=== PATIENT | female | born 1950 | race Caucasian/White ===

== ENCOUNTER 2022-01-15 19:15 | Inpatient (IN) | payer OTHER ==
--- OUTSIDE RECORDS SUMMARY | 2022-01-15 19:29 | XMS REPORT | Continuity of Care Document ---
:1950 Author Organization [facility] t Address [address] [place] [address] Care Team Providers Name Role Phone Pcp, Does Not Have A Primary Care Physician Doctor Unassigned, Name Attending Clinician Unavailable Criss GARZA L Attending Clinician Harpreet KAHN Attending Clinician Unavailable Emily RAJPUT Attending Clinician Unavailable Payers Payer Name Policy Type Policy Number Effective Date Expiration Date Emily hensley MEDICARE PART A [id number] 2016 \T\ B 00:00:00 Problems Condition Condition Condition Status Onset Resolution Last Treating Co mments Source Name Details Category Date Date Treatment Clinician Date Morbid Morbid Disease Active Univers obesity obesity 7 [place] mass index 00 Me dical of of Branch 40.0-49.9 40.0-49.9 Chest pain Chest pain Disease Active U nivers 06-25 ity of 00:00: [place] 00 [facility] Branch Morbid Morbid Disease Active Univers obesity obesity 7- [place] of with body [place] mass index mass index 00 Me dical of 50 or of 50 or Branch higher higher Cholangiti Cholangiti Disease Active U nivers s s 06-25 ity of 00:00: [place] 00 Medical Branch Obesity Obesity Disease Active Univers 9-27 ity of 00:00: [place] 00 [facility] Pleural Pleural Disease Active Univers effusion effusion 9- ity of 00:00: [place] [facility] Gait Gait Disease Active Univers abnormalit abnormalit 8-12 it y of y y 00:00: [place] 00 [facility] Branch Choledocho Choledocho Disease Active U nivers lithiasis lithiasis 8 ity of 00:00: [place] [facility] Dilation Dilation Disease Active Unive rs of biliary of biliary 8 it y of tract tract 00:00: [place] [facility] Abnormal Abnormal Disease Active Unive rs LFTs LFTs 8-08 ity of (liver (liver 00:00: [place] function function 00 Medica l tests) tests) Branch Hyperbilir Hyperbilir Disease Active U nivers ubinemia ubinemia 07-07 ity of 00:00: [place] [facility] Cholelithi Cholelithi Disease Active U nivers asis asis 8 ity of 00:00: [place] [facility] Hypertensi Hypertensi Disease Active U nivers on on 07-04 ity of 00:00: [place] 00 Medical Branch HLD HLD Disease Active 2008-11 Overview: Univer s (hyperlipi (hyperlipi 2-03 Formattin ity of demia) demia) 00:00: g of this [place] 00 note Medical might be Branch different from the original. 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 Retinopat hy cloudicat ion Allergies, Adverse Reactions, Alerts Allergy Allergy Status Severity Reaction(s) Onset Inactive Treating Comm ents Source Name Type Date Date Clinician No Known DA Active [facility] Allergie 7-20 [place] [facility] 00:[facility] NO KNOWN Drug Active Univers ALLERGIE Class ity of S [facility] Social History Social Habit Start Date Stop Date Quantity Comments Source Exposure to Not sure University of SARS-CoV-2 [place] Medical (event) Branch Alcohol intake 2021-05-09 2021-05-09 0 /d University of 00:00:00 00:00:00 [facility] History of 1997-11-30 Cigarette Smoker Universi ty of tobacco use 00:00:00 [facility] Sex [birth year] Universit y of 00:00:00 00:00:00 [facility] Smoking Status Start Date Stop Date Source Former smoker 2021-03-21 00:00:00 2021-03-21 00:00:00 Universi ty of [facility] Medications Ordered Filled Start Stop Current Ordering Indication Dosage Frequency Signature Comments Components Source Medication Medication Date Date Medication? Clinician (SIG) Name Name DICLOFENAC Yes [id number] TAKE 1 Univers 75 mg EC 2-04 TABLET BY ity of tablet 00:00: MOUTH [place] 00 TWICE Medical DAILY WITH Branch MEALS DICLOFENAC Yes [id number] TAKE 1 Univers 75 mg EC 2-04 TABLET BY ity of tablet 00:00: MOUTH [place] 00 TWICE Medical DAILY WITH Branch MEALS DICLOFENAC Yes [id number] TAKE 1 Univers 75 mg EC 2-04 TABLET BY ity of tablet 00:00: MOUTH [place] 00 TWICE Medical DAILY WITH Branch MEALS metoprolol Yes 25mg Take 25 mg U nivers succinate 8-04 by mouth 2 ity of XL (TOPROL 18:17: (two) [place] XL) 25 mg 42 times Medical 24 hr daily. Branch tablet Indication s: Take 1/2 tab two times daily PYRIDOXINE Yes 100mg Take 100 Un thiago HCL, 8-04 mg by ity of VITAMIN B6, 18:17: mouth [place] (VITAMIN 42 daily. Medical B-6 ORAL) Branch FOLIC ACID Yes 400ug Take 400 Un thiago ORAL 8-04 mcg by ity of 18:17: mouth [place] 42 daily. Medical Branch CYANOCOBALA Yes 2000ug Take 2,000 Univers MIN, 8-04 mcg by ity of VITAMIN 18:17: mouth [place] B-12, 42 daily. Medical (VITAMIN Branch B12 ORAL) traMADOL 50 Yes 50mg Take 50 mg Univers mg tablet 8-04 by mouth ity of 18:17: daily. [place] [address] Medical Branch [place]-3-DHA Yes 1000mg Take 1,000 Univers -EPA-Fish 8-04 mg by ity of Oil (FISH 18:17: mouth [place] OIL) 1,000 42 daily. Medical mg (120 Branch mg-180 mg) Cap ERGOCALCIFE Yes 2000mg Take 2,000 Univers ROL, 8-04 mg by ity of VITAMIN D2, 18:17: mouth [place] (VITAMIN D 42 daily. Medical ORAL) Branch furosemide Yes 20mg Take 20 mg U nivers 20 mg 8-04 by mouth ity of tablet 18:17: daily. [place] [address] Medical Branch metoprolol Yes 25mg Take 25 mg U nivers succinate 8-04 by mouth 2 ity of XL (TOPROL 18:17: (two) [place] XL) 25 mg 42 times Medical 24 hr daily. Branch tablet Indication s: Take 1/2 tab two times daily PYRIDOXINE Yes 100mg Take 100 Un thiago HCL, 8-04 mg by ity of VITAMIN B6, 18:17: mouth [place] (VITAMIN 42 daily. Medical B-6 ORAL) Branch FOLIC ACID Yes 400ug Take 400 Un thiago ORAL 8-04 mcg by ity of 18:17: mouth [place] 42 daily. Medical Branch CYANOCOBALA Yes 2000ug Take 2,000 Univers MIN, 8-04 mcg by ity of VITAMIN 18:17: mouth [place] B-12, 42 daily. Medical (VITAMIN Branch B12 ORAL) traMADOL 50 Yes 50mg Take 50 mg Univers mg tablet 8-04 by mouth ity of 18:17: daily. [place] [address] Medical Branch [place]-3-DHA Yes 1000mg Take 1,000 Univers -EPA-Fish 8-04 mg by ity of Oil (FISH 18:17: mouth [place] OIL) 1,000 42 daily. Medical mg (120 Branch mg-180 mg) Cap ERGOCALCIFE Yes 2000mg Take 2,000 Univers ROL, 8-04 mg by ity of VITAMIN D2, 18:17: mouth [place] (VITAMIN D 42 daily. Medical ORAL) Branch furosemide Yes 20mg Take 20 mg U nivers 20 mg 8-04 by mouth ity of tablet 18:17: daily. [place] [address] Medical Branch metoprolol Yes 25mg Take 25 mg U nivers succinate 8-04 by mouth 2 ity of XL (TOPROL 18:17: (two) [place] XL) 25 mg 42 times Medical 24 hr daily. Branch tablet Indication s: Take 1/2 tab two times daily PYRIDOXINE Yes 100mg Take 100 Un thiago HCL, 8-04 mg by ity of VITAMIN B6, 18:17: mouth [place] (VITAMIN 42 daily. Medical B-6 ORAL) Branch FOLIC ACID Yes 400ug Take 400 Un [place]ago ORAL 8-04 mcg by ity of 18:17: mouth [place] 42 daily. Medical Branch CYANOCOBALA Yes 2000ug Take 2,000 Univers MIN, 8-04 mcg by ity of VITAMIN 18:17: mouth [place] B-12, 42 daily. Medical (VITAMIN Branch B12 ORAL) traMADOL 50 Yes 50mg Take 50 mg Univers mg tablet 8-04 by mouth ity of 18:17: daily. [place] [address] Medical Branch [place]-3-DHA Yes 1000mg Take 1,000 Univers -EPA-Fish 8-04 mg by ity of Oil (FISH 18:17: mouth [place] OIL) 1,000 42 daily. Medical mg (120 Branch mg-180 mg) Cap ERGOCALCIFE 2017 Yes 2000mg Take 2,000 Univers ROL, 8-04 mg by ity of VITAMIN D2, 18:17: mouth [place] (VITAMIN D 42 daily. Medical ORAL) Branch furosemide Yes 20mg Take 20 mg U nivers 20 mg 8-04 by mouth ity of tablet 18:17: daily. [place] [address] Medical Branch amLODIPine Yes 10mg Take 2 Unive rs 5 mg tablet 8-04 tablets by it y of 00:00: mouth [place] 00 daily. Medical Branch amLODIPine Yes 10mg Take 2 Unive rs 5 mg tablet 8-04 tablets by it y of 00:00: mouth [place] 00 daily. Medical Branch amLODIPine Yes 10mg Take 2 Unive rs 5 mg tablet 8-04 tablets by it y of 00:00: mouth [place] 00 daily. Medical Branch glyBURIDE 2016-0 Yes Univers (DIABETA) 5 1-20 ity of mg tablet 00:00: [place] [facility] glyBURIDE 0 Yes Univers (DIABETA) 5 1-20 ity of mg tablet 00:00: [place] [facility] glyBURIDE 0 Yes Univers (DIABETA) 5 1-20 ity of mg tablet 00:00: [place] [facility] Branch levothyroxi 0 Yes 125ug Take 1 Tab Univers ne 6-11 by mouth ity of (SYNTHROID) 00:00: [place]. [place] 125 mcg Medical tablet Branch levothyroxi Yes 125ug Take 1 Tab Univers ne 6-11 by mouth ity of (SYNTHROID) 00:00: [place]. [place] 125 mcg Medical tablet Branch levothyroxi Yes 125ug Take 1 Tab Univers ne 6-11 by mouth ity of (SYNTHROID) 00:00: [place] 125 mcg Medical tablet Branch PRAVASTATIN 2008-11 Yes 1 tab PO Un thiago 80 MG ORAL 2-03 QHS ity of TAB 00:00: [place] [facility] PRAVASTATIN 2008-11 Yes 1 tab PO Un thiago 80 MG ORAL 2-03 QHS ity of TAB 00:00: [place] [facility] PRAVASTATIN 2008-11 Yes 1 tab PO Un thiago 80 MG ORAL 2-03 QHS ity of TAB 00:00: [address] Immunizations Ordered Filled Immunization Date Status Comments [facility] e Immunization Name Name Pneumococcal 2017-07-03 Completed [place] o f Polysaccharide, 00:00:00 [place] Med ical PPSV23 (PNEUMOVAX) Branch Pneumococcal 2017-07-03 Completed [place] f Polysaccharide, 00:00:00 [place] Med ical PPSV23 (PNEUMOVAX) Branch Pneumococcal 2017-07-03 Completed [place] f Polysaccharide, 00:00:00 [place] Med ical PPSV23 (PNEUMOVAX) Branch Vital Signs Vital Name Observation Time Observation Value Comments Source Body height 2021-09-09 18:59:00 142.2 cm [facility] Body weight 2021-09-09 18:59:00 87.544 kg [facility] BMI 2021-09-09 18:59:00 43.27 kg/m2 [facility] Systolic blood 2021-09-09 18:59:00 154 mm[Hg] Univer sity [facility] Diastolic blood 2021-09-09 18:59:00 65 mm[Hg] Unive rsity [facility] Heart rate 2021-09-09 18:59:00 72 /min Universi ty of [facility] Procedures Procedure Date / Time Performed Performing Clinician Sour e MEDICAL 2021-12-09 06:01:00 Doctor Unassigned, No [facility] RELEASE/CLEARANCE Name [facility] FORMS Encounters Start End Encounter Admission Attending Care Care Encounter Source Date/Time Date/Time Type Type Clinicians Facility Department ID 2021-12-09 2021-12-09 Orders Doctor ELVIN [id number] Univers 00:00:00 00:00:00 Only Unassigned, ELI [id number] [facility] [id number] [place] [id number] [address] 2021-09-10 2021-09-10 [facility] [id number] Univers 00:00:00 00:00:00 (Out) Vaishali [facility] [id number] it y of [place] [id number] [place] as CODY?BLEA [id number] Md jordan [address] MEDICAL OFFICE [facility] 2021-09-09 2021-09-09 [facility] [id number] Univers 14:30:00 14:30:00 VAISHALI [id number] [facility] 2021-09-09 2021-09-09 [facility] [id number] Univers 14:30:00 14:30:00 VAISHALI [facility] 2021-09-09 2021-09-09 Office [facility] [id number] Univers 13:44:03 14:12:31 Visit Vaishali [facility] [id number] it y of [place] [id number] [place]?Blea [id number] Md larry[address] Medical Office Building 2021-05-09 2021-05-09 [facility] [id number] Univers 09:15:00 09:15:00 MEENA [id number] ity [facility] 2021-05-09 2021-05-09 Outpatient Seun RAJPUT [facility] [id number] Univers 09:15:00 09:15:[facility] 2021-05-02 Outpatient Seun RAJPUT [facility] [id number] Univers 09:00:00 09:00:00 [facility] [id number] 2021-05-02 Outpatient Seun RAJPUT [facility] [id number] Univers 09:00:00 09:00:00 MEENA [facility] 2021-04-25 2021-04-25 Outpatient Seun RAJPUT [facility] [id number] Univers 09:00:00 09:00:00 MEENA [id number] [facility] 2021-04-25 2021-04-25 Outpatient Seun RAJPUT [facility] [id number] Univers 09:00:00 09:00:00 MEENA [facility] 2021-04-23 2021-04-23 Outpatient Seun RAJPUT [facility] [id number] Univers 09:00:00 09:00:00 MEENA [id number] [facility] 2021-04-23 2021-04-23 Outpatient Seun RAJPUT [facility] [id number] Univers 09:00:00 [facility]:00:[facility] 2021-03-21 Outpatient Seun KAHN [facility] [id number] Univers 10:00:00 10:00:00 VAISHALI Ceron422 [facility] 2021-03-21 2021-03-21 Outpatient Seun KAHN [facility] [id number] Univers 10:00:00 10:00:[facility] 2020-01-30 [facility] [id number] 13:49:25 14:04:25 Visit [facility] [id number] Surgical [id number] [facility] [id number] es [id number] [place] 2020-01-30 2020-01-30 Outpatient Seun KAHN [facility] [id number] Univers 13:45:00 13:45:00 VAISHALI [id number] [facility] 2020-01-30 2020-01-30 Outpatient Seun KAHN [facility] [id number] Univers 13:45:00 13:45:00 VAISHALI [facility] Results This patient has no known results.
[2022-01-15] MEDS ORDERED: D10W 250 ML IV ONE (20:18)
[2022-01-15] MEDS ORDERED: D5 0.45 NS 1,000 ML IV ONE (20:18)
[2022-01-15 20:36] LABS: Absolute Lymphocytes (CBC) 1.2 K/uL (0.7-4.9); Hematocrit 30.2 % (36.0-45.0); Lymphocytes % 6.7 % (15.3-44.8); MPV 8.6 fL (7.6-11.3); RBC Red Blood Cell Count 3.32 M/uL (3.86-4.86)
[2022-01-15 20:37] LABS: Protime INR 0.98
--- NOTE | 2022-01-15 21:07 | EDPHYS ---
Physician Documentation [facility] Name: Prema Soares Age: 72 yrs Sex: Female : 1950 Arrival Date: 01/15/2022 Time: 19:50 Bed 26 Private MD: CHARLES Physician Jasiel Montoya HPI: 01/15 20:14 This 72 yrs old Female presents to ER via Unassigned with complaints of Fall diamond Injury. 20:14 The patient or guardian complains of decreased range of motion, an injury, pain. right diamond shoulder. Context: The problem was sustained at home, resulted from a fall. Onset: The symptoms/episode began/occurred just prior to arrival. Modifying factors: the symptoms are alleviated by nothing. The symptoms are aggravated by movement. Associated signs and symptoms: The patient has no apparent associated signs or symptoms. The patient presents to the emergency department with nausea, vomiting, that is intermittent. Possible causes: unknown. The symptoms are aggravated by nothing. The symptoms are alleviated by nothing. Details of fall: The patient fell from an upright position. Historical: - Allergies: 23:00 No Known Allergies; mk - Home Meds: 23:00 allopurinol 100 mg Oral tab 1 tab once daily [Active]; lisinopril 2.5 mg Oral tab 1 tab mk once daily [Active]; ezetimibe 10 mg oral tab 1 tab once daily [Active]; glyburide micronized 5 mg Oral tab 1 tab 2 times per day [Active]; levothyroxine 112 mcg cap 1 cap once daily [Active]; metoprolol tartrate 12.5 mg Oral tab 1 tab 2 times per day [Active]; pravastatin 10 mg oral tab 1 tab once daily [Active]; 23:02 folic acid 400 mcg Oral tab 1 tab once daily [Active]; B12 Active 2000 mcg chew oral mk chew [Active]; Fish Oil oral cap daily [Active]; acetaminophen 325 mg Oral tab 2 tabs nightly [Active]; aspirin 81 mg Oral chew 1 tab once daily [Active]; - Immunization history:: Adult Immunizations up to date, Client reports having NOT received the Covid vaccine. Pneumococcal vaccine is not up to date, Flu vaccine is not up to date. - Immunization history: Last tetanus immunization: unknown. - Family history:: not pertinent. - Social history:: Smoking status: Patient/guardian denies using tobacco. ROS: 20:14 Constitutional: Negative for fever, chills, and weight loss, Eyes: Negative for injury, diamond pain, redness, and discharge, ENT: Negative for injury, pain, and discharge, Neck: Negative for injury, pain, and swelling, Cardiovascular: Negative for chest pain, palpitations, and edema, Respiratory: Negative for shortness of breath, cough, wheezing, and pleuritic chest pain, Abdomen/GI: Negative for abdominal pain, nausea, vomiting, diarrhea, and constipation, Back: Negative for injury and pain, : Negative for injury, bleeding, discharge, and swelling, Skin: Negative for injury, rash, and discoloration, Neuro: Negative for headache, weakness, numbness, tingling, and seizure, Psych: Negative for depression, anxiety, suicide ideation, homicidal ideation, and hallucinations, Allergy/Immunology: Negative for hives, rash, and allergies, Endocrine: Negative for neck swelling, polydipsia, polyuria, polyphagia, and marked weight changes, Hematologic/Lymphatic: Negative for swollen nodes, abnormal bleeding, and unusual bruising. 20:14 MS/extremity: Positive for injury or acute deformity, decreased range of motion, pain, of the anterior aspect of right shoulder and posterior aspect of right shoulder. Exam: 20:16 Constitutional: This is a well developed, well nourished patient who is awake, alert, diamond and in no acute distress. Head/Face: Normocephalic, atraumatic. Eyes: Pupils equal round and reactive to light, extra-ocular motions intact. Lids and lashes normal. Conjunctiva and sclera are non-icteric and not injected. Cornea within normal limits. Periorbital areas with no swelling, redness, or edema. ENT: Nares patent. No nasal discharge, no septal abnormalities noted. Tympanic membranes are normal and external auditory canals are clear. Oropharynx with no redness, swelling, or masses, exudates, or evidence of obstruction, uvula midline. Mucous membranes moist. Neck: Trachea midline, no thyromegaly or masses palpated, and no cervical lymphadenopathy. Supple, full range of motion without nuchal rigidity, or vertebral point tenderness. No Meningismus. Chest/axilla: Normal chest wall appearance and motion. Nontender with no deformity. No lesions are appreciated. Cardiovascular: Regular rate and rhythm with a normal S1 and S2. No gallops, murmurs, or rubs. Normal PMI, no JVD. No pulse deficits. Respiratory: Lungs have equal breath sounds bilaterally, clear to auscultation and percussion. No rales, rhonchi or wheezes noted. No increased work of breathing, no retractions or nasal flaring. Abdomen/GI: Soft, non-tender, with normal bowel sounds. No distension or tympany. No guarding or rebound. No evidence of tenderness throughout. Back: No spinal tenderness. No costovertebral tenderness. Full range of motion. Female : Normal external genitalia. Skin: Warm, dry with normal turgor. Normal color with no rashes, no lesions, and no evidence of cellulitis. Neuro: Awake and alert, GCS 15, oriented to person, place, time, and situation. Cranial nerves II-XII grossly intact. Motor strength 5/5 in all extremities. Sensory grossly intact. Cerebellar exam normal. Normal gait. Psych: Awake, alert, with orientation to person, place and time. Behavior, mood, and affect are within normal limits. 20:16 Musculoskeletal/extremity: ROM: limited active range of motion, limited passive range of motion, in the anterior aspect of right shoulder and posterior aspect of right shoulder, limited active range of motion due to pain, limited passive range of motion due to pain, Circulation is intact in all extremities. Sensation intact. Compartment Syndrome exam of affected extremity: is normal. 20:16 Skin: Appearance: Color: normal in color, Temperature: warm, Moisture: normal moisture, petechiae, not noted, ecchymosis. 21:06 ECG was reviewed by the Attending Physician. [facility] Vital Signs: 19:52 BP 142 / 96; Pulse 80; Resp 18; Temp 98.4(O); Pulse Ox 99% on R/A; Weight 86.18 kg (R); Height 4 ft. 8 in. (142.24 cm) (R); 20:30 BP 112 / 71; Pulse 86; Resp 18; Pulse Ox 100% ; mk 21:30 BP 116 / 97; Pulse 87; Resp 18; Pulse Ox 98% on R/A; mk 22:30 BP 99 / 53; Pulse 79; Resp 21; Pulse Ox 100% ; mk 23:45 BP 120 / 49; Pulse 84; Resp 20 S; Pulse Ox 99% on R/A; al4 19:52 Body Mass Index 42.60 (86.18 kg, 142.24 cm) [place] Coma Score: 19:52 Eye Response: spontaneous(4). Verbal Response: oriented(5). Motor Response: obeys mk commands(6). Total: 15. 20:30 Eye Response: spontaneous(4). Verbal Response: oriented(5). Motor Response: obeys mk commands(6). Total: 15. 21:30 Eye Response: spontaneous(4). Verbal Response: oriented(5). Motor Response: obeys mk commands(6). Total: 15. 22:30 Eye Response: spontaneous(4). Verbal Response: oriented(5). Motor Response: obeys mk commands(6). Total: 15. Trauma Score (Adult): 19:52 Eye Response: spontaneous(1); Verbal Response: oriented(1); Motor Response: obeys mk commands(2); Systolic BP: > 89 mm Hg(4); Respiratory Rate: 10 to 29 per min(4); [place] Score: 15; Trauma Score: 12 20:30 Eye Response: spontaneous(1); Verbal Response: oriented(1); Motor Response: obeys mk commands(2); Systolic BP: > 89 mm Hg(4); Respiratory Rate: 10 to 29 per min(4); [place] Score: 15; Trauma Score: 12 21:30 Eye Response: spontaneous(1); Verbal Response: oriented(1); Motor Response: obeys mk commands(2); Systolic BP: > 89 mm Hg(4); Respiratory Rate: 10 to 29 per min(4); [place] Score: 15; Trauma Score: 12 22:30 Eye Response: spontaneous(1); Verbal Response: oriented(1); Motor Response: obeys mk commands(2); Systolic BP: > 89 mm Hg(4); Respiratory Rate: 10 to 29 per min(4); [place] Score: 15; Trauma Score: 12 MDM: 19:54 Patient medically screened. diamond 20:17 Differential diagnosis: Anterior dislocation with fracture, Anterior dislocation diamond without fracture, Posterior dislocation with fracture, Posterior dislocation without fracture, humeral head fracture, glenoid fracture, DJD. Differential diagnosis: closed head injury, contusion, fracture, laceration, sprain, strain. Data reviewed: vital signs, nurses notes, lab test result(s), EKG, radiologic studies, CT scan, plain films. Test interpretation: by ED physician or midlevel provider: ECG, plain radiologic studies. Counseling: I had a detailed discussion with the patient and/or guardian regarding: the historical points, exam findings, and any diagnostic results supporting the discharge/admit diagnosis, lab results, radiology results. 01/15 20:11 Order name: Glucose, Ancillary Testing; Complete Time: 20:23 [facility] 01/15 20:13 Order name: Basic Metabolic Panel [facility] 01/15 20:13 Order name: CBC with Diff [facility] 01/15 20:13 Order name: LFT's [facility] 01/15 20:13 Order name: Magnesium; Complete Time: 21:42 [facility] 01/15 20:13 Order name: NT PRO-BNP; Complete Time: 21:42 [facility] 01/15 20:13 Order name: PT-INR; Complete Time: 21:02 [facility] 01/15 20:13 Order name: Troponin HS; Complete Time: 21:42 [facility] 01/15 20:13 Order name: Lipase; Complete Time: 21:42 [facility] 01/15 20:13 Order name: Basic Metabolic Panel; Complete Time: 21:42 [facility] 01/15 20:13 Order name: CBC with Automated Diff; Complete Time: 21:02 [facility] 01/15 20:14 Order name: Liver (Hepatic) Function; Complete Time: 21:42 [facility] 01/15 21:20 Order name: Glucose, Ancillary Testing [facility] 01/15 21:20 Order name: Glucose, Ancillary Testing; Complete Time: 21:29 [facility] 01/15 21:30 Order name: Urine Microscopic Only [facility] 01/15 21:30 Order name: Urine Microscopic Only [facility] 01/15 21:32 Order name: COVID-19 SARS RT PCR (Document "Date of Onset" if Symptomatic) [facility] 01/15 21:43 Order name: Procalcitonin [facility] 01/16 00:11 Order name: Glucose, Ancillary Testing [facility] 01/16 03:57 Order name: CBC with Automated Diff [facility] 01/16 04:37 Order name: Comprehensive Metabolic Panel [facility] 01/16 04:37 Order name: Lipid Profile [facility] 01/16 04:37 Order name: C-Reactive Protein [facility] 01/16 04:37 Order name: T4 Free [facility] 01/16 04:37 Order name: Magnesium [facility] 01/16 04:37 Order name: Thyroid Stimulating Hormone [facility] 01/16 04:37 Order name: Transferrin Sat/Iron Binding [facility] 01/16 04:37 Order name: Ferritin [facility] 01/16 04:56 Order name: Manual Differential [facility] 01/16 05:45 Order name: Procalcitonin [facility] 01/15 20:13 Order name: XRAY Chest (1 view); Complete Time: 22:13 [facility] 01/15 20:13 Order name: EKG; Complete Time: 20:14 [facility] 01/15 20:13 Order name: Cardiac monitoring; Complete Time: 20:27 [facility] 01/15 20:13 Order name: EKG - Nurse/Tech; Complete Time: 20:40 [facility] 01/15 20:13 Order name: IV Saline Lock; Complete Time: 20:27 [facility] 01/15 20:13 Order name: Labs collected and sent; Complete Time: 20:27 [facility] 01/15 20:13 Order name: O2 Per Protocol; Complete Time: 20:27 [facility] 01/15 20:13 Order name: O2 Sat Monitoring; Complete Time: 20:27 [facility] 01/15 20:13 Order name: Shoulder Right (2 View) XRAY; Complete Time: 22:13 [facility] 01/15 20:13 Order name: NPO; Complete Time: 20:27 [facility] 01/15 20:13 Order name: CT Traumagram (Head C Spine CAP wo con); Complete Time: 21:11 [facility] 01/15 21:49 Order name: Sling; Complete Time: 22:25 [facility] 01/16 08:13 Order name: Creatine Phosphokinase [facility] 01/16 10:10 Order name: MRI [facility] 01/16 11:10 Order name: Glucose, Ancillary Testing [facility] EC:06 Rate is 102 beats/min. Rhythm is regular. QRS [place] is Normal. NV interval is normal. diamond QRS interval is normal. QT interval is normal. No Q waves. T waves are Normal. No ST changes noted. Clinical impression: Sinus tachycardia and No evidence of ischemia. Interpreted by me. Reviewed by me. Administered Medications: 20:28 CANCELLED (low bg switched orderss): NS 0.9% 1000 ml IV at 125 ml/hr continuous mk 20:31 Drug: D10 in Water [2 mL/kg] 2 ml/kg Route: IVP; Site: left antecubital; mk 21:01 Follow up: Response: No adverse reaction; Blood sugar is elevated mk 21:12 Drug: D5-1/2 NS 1000 ml Route: IV; Rate: 125 ml/hr; Site: left antecubital; mk 22:24 Follow up: Response: No adverse reaction; Rate change 100 ml/hr; IV Status: Infusion mk continued; IV Intake: 250ml 22:18 Drug: Zofran (Ondansetron) 4 mg Route: IVP; Site: left antecubital; mk 22:25 Follow up: Response: No adverse reaction mk 22:18 Drug: morphine 4 mg Route: IVP; Site: left antecubital; mk 22:25 Follow up: Response: No adverse reaction mk 23:04 Drug: Magnesium Sulfate 2 grams Route: IVPB; Infused Over: 2 hrs; Site: left al4 antecubital; Disposition Summary: 01/15/22 21:06 Hospitalization Ordered Hospitalization Status: Observation diamond Provider: Archie Glez diamond Condition: Stable diamond Problem: new diamond Symptoms: have improved diamond Bed/Room Type: Standard diamond Location: Telemetry/MedSurg (observation)(01/16/22 13:21) bd Room Assignment: 214(01/16/22 13:21) bd Diagnosis - Fall on same level, unspecified diamond - Adverse effect of insulin and oral hypoglycemic [antidiabetic] drugs diamond - 2-part displaced fracture of surgical neck of right humerus diamond - Syncope Near diamond - Obesity, unspecified diamond - Other displaced fracture of seventh cervical vertebra, initial encounter for closed diamond fracture - stable - Fracture of thoracic vertebra - #7 stable diamond Forms: - Medication Reconciliation Form diamond - SBAR form diamond Signatures: Dispatcher [employer] EDMS Mabel Simon Corey, MD MD cha Attema, Lee, DAMPPROOFER-C DAMPPROOFER-Cla1 Eliana Kumar RN RN eb1 Brian Little Madeline RN RN rubi Corrections: (The following items were deleted from the chart) 20:28 20:13 NS 0.9% 1000 ml IV at 125 ml/hr continuous ordered. diamond 01/16 00:22 01/15 21:06 Telemetry/MedSurg (observation) diamond man 01/16 00:22 01/15 21:06 diamond eb1 01/16 13:21 00:22 [facility] eb[facility]
--- NOTE | 2022-01-15 21:07 | RAD REPORT ---
EXAM DESCRIPTION: CT - Head C Spine Cap Maile [place]ri[place] - 01/15/2022 8:48 pm CLINICAL HISTORY: Trauma, head and neck injury. Chest, abdomen and pelvis pain. PAIN COMPARISON: No comparisons TECHNIQUE: CT head without contrast. CT cervical spine without contrast with coronal and sagittal reformatted images. CT chest, abdomen and pelvis with coronal and sagittal reformatted images of the spine. All CT scans are performed using dose optimization technique as appropriate and may include automated exposure control or mA/KV adjustment according to patient size. FINDINGS: CT HEAD WITHOUT CONTRAST: No intracranial hemorrhage, hydrocephalus or extra-axial fluid collection. No acute large vascular te rritory infarct. Casey cisterna magnum. Cerebral atrophy. The paranasal sinuses and mastoids are clear. The calvarium is intact. CT CERVICAL SPINE WITHOUT CONTRAST: Diffuse idiopathic skeletal hyperostosis. No malalignment is identified. There is a lucency oriented obliquely in the C7 vertebral body that is suspicious for fracture. No bony retropulsion . No other f ractures are seen. Alignment is anatomic. CT CHEST, ABDOMEN, PELVIS: Thorax: Chest Wall: No abnormal mass Lungs: No acute abnormality. Pleura: No effusions or pneumothorax. Viviane/Mediastinum: No lymphadenopathy. Aorta/Pulmonary Arteries: Unremarkable Heart: Normal size. Abdomen/Pelvis: Liver: No acute abnormality or suspicious lesions. Biliary: No biliary ductal dilatation. Cholecystectomy. Stomach: No significant focal abnormality. Duodenum: No significant focal abnormality. Pancreas: No significant abnormality. Spleen: No significant abnormality. Adrenal: No suspicious lesions. Kidney/ureter: No hydronephrosis. No renal calculi. Retroperitoneum: No retroperitoneal adenopathy. Vascular: No aneurysm. Bowel: No significant focal abnormality. Peritoneum: No ascites or free air. Bladder: Grossly unremarkable. Reproductive: No adnexal masses. Hysterectomy. Bones: Comminuted and displaced right proximal humerus fracture involving the surgical neck. Diffuse idiopathic skeletal hyperostosis in the thoracic and lumbar spine. Lucency through the anterior aspec t of the T7 vertebral body is noted. Remote appearing L1 compression fracture. Other: n/a IMPRESSION: Two suspected fractures in the spine, one at C7 and the other at T7. Neither have any risa ny retropulsion or vertebral body height loss. The patient has a background of diffuse idiopathic ske letal hyperostosis (DISH) which predisposes to fractures, some of which may be radiographically occul t. Right proximal humerus fracture. No dislocation.
[2022-01-15 21:38] LABS: ALT/SGPT 60 U/L (12-78); AST/SGOT 62 U/L (15-37); Albumin 2.9 g/dL (3.4-5.0); Alkaline Phosphatase 150 U/L (45-117); BUN Blood Urea Nitrogen 23 mg/dL (7-18); Bicarbonate 21 mmol/L (21-32); Bilirubin Direct < 0.1 mg/dL (0-0.2); Bilirubin Total 0.2 mg/dL (0.2-1.0); Glucose Level 74 mg/dL (74-106); Lipase 94 U/L (73-393); Magnesium 1.6 mg/dL (1.8-2.4); NT PRO-BNP 554 pg/mL (<125); Potassium 4.6 mmol/L (3.5-5.1); Protein, Total 6.2 g/dL (6.4-8.2); Sodium Level 135 mmol/L (136-145)
--- NOTE | 2022-01-15 21:59 | RAD REPORT ---
EXAM DESCRIPTION: RAD - Chest Single View - 01/15/2022 9:38 pm CLINICAL HISTORY: COUGH COMPARISON: Chest Pa And Lat (2 Views) dated 09/12/2016 FINDINGS: Lines: None. Lungs: No evidence of edema or pneumonia. Pleural: No significant pleural effusions or pneumothorax. Cardiac: The heart size is within normal limits. Bones: No acute fractures. Other: IMPRESSION: No acute cardiopulmonary disease.
--- NOTE | 2022-01-15 21:59 | RAD REPORT ---
EXAM DESCRIPTION: RAD - Shoulder Right 2 View - 01/15/2022 9:38 pm CLINICAL HISTORY: PAIN COMPARISON: No comparisons FINDINGS/IMPRESSION: Displaced surgical neck fracture of the right humerus. There is some overriding . The fracture is likely multipart with involvement of the greater tuberosity. No dislocation. Eviden ce of prior healed proximal humeral fracture also noted .
[2022-01-15] MEDS ORDERED: MORPHINE 4 MG/ML SYR ONE (22:04)
[2022-01-15] MEDS ORDERED: ONDANSETRON 4 MG/2 ML VIAL ONE (22:04)
--- NOTE | 2022-01-15 22:36 | P.HP ---
Certification for Inpatient Patient admitted to: Inpatient With expected LOS: >2 Midnights Patient will require the following post-hospital care: None Practitioner: I am a practitioner with admitting privileges, knowledge of patient current condition, hospital course, and medical plan of care. Services: Services provided to patient in accordance with Admission requirements found in Title 42 Section 412.3 of the Code of Federal Regulations Patient History Date of Service: 01/15/22 Primary Care Provider: Dr. Heart, Dr. Howell, Dr. Torres Reason for admission: Fall, Hypoglycemia History of Present Illness: 72-year-old female with history of diabetes mellitus type [id number], hypothyroidism, hyperlipidemia, hypertension, gout and CKD presents the emergency department after having a fall. Patient reports that she felt like her blood sugar was dropping fell onto her right side from standing denies loss of consciousness. Initial blood sugar was 54. Patient was evaluated in the emergency department additional lab significant for white blood cell count 17.4 hemoglobin 10.9 hematocrit 30.2 sodium 135 chloride 108 creatinine 1.51 GFR 34 glucose increased to 218 BNP 554 urinalysis pending Covid test pending patient had x-ray of the right shoulder which demonstrated displaced surgical neck fracture of the right humerus with some overriding, CT head C-spine chest abdomen pelvis without contrast demonstrated to suspected fractures in the spine 1 at C7 and one at T7 neither have bony retropulsion or vertebral height loss patient is a background of diffuse idiopathic skeletal hyperostosis which predisposes to fractures. ED provider discussed case with radiologist who reported that the fracture on C7 was anterior and appears stable, case was also discussed with neurology who stated it would be appropriate to admit here and get an MRI of the C-spine tomorrow. C-collar can be applied for comfort if patient was hurting, patient was without pain at this time. Will admit for further evaluation and management. - Past Medical/Surgical History -: Diabetes mellitus type 2 -: Hypertension -: CKD -: Hypothyroidism -: Cholecystectomy -: Wrist surgery Psychosocial/ Personal History: Patient lives at home, alone but has caregivers Thursday to Thursday until noon - Family History Family History: Reviewed- Non-Contributory - Social History Smoking Status: Never smoker Alcohol use: No CD- Drugs: No Caffeine use: No Place of Residence: Home Review of Systems 10-point ROS is otherwise unremarkable General: Weakness, Malaise Musculoskeletal: Shoulder Pain, As per HPI Physical Examination - Physical Exam General: Alert, In no apparent distress, Oriented x3, Obese HEENT: Atraumatic, PERRLA, Mucous membr. moist/pink, EOMI, Sclerae nonicteric Neck: Supple, 2+ carotid pulse no bruit, No LAD, Without JVD or thyroid abnormality Respiratory: Clear to auscultation bilaterally, Normal air movement Cardiovascular: Regular rate/rhythm, Normal S1 S2 Capillary refill: <2 Seconds Gastrointestinal: Normal bowel sounds, No tenderness Musculoskeletal: No tenderness Integumentary: No rashes Neurological: Normal speech, Normal strength at 5/5 x4 extr, Normal tone, Normal affect - Studies Laboratory Data (last 24 hrs) 01/15/22 20:22: PT 11.3, INR 0.98 01/15/22 20:22: WBC 17.40 H, Hgb 9.9 L, Hct 30.2 L, Plt Count 294 01/15/22 20:22: Sodium 135 L, Potassium 4.6, BUN 23 H, Creatinine 1.51 H, Glucose 74, Magnesium 1.6 L, Total Bilirubin 0.2, AST 62 H, ALT 60, Alkaline Phosphatase 150 H, Lipase 94 Assessment and Plan - Plan Assessment: Fall, near syncope/collapse secondary to hypoglycemia Diabetes mellitus type 2 [id number] with hyperglycemia on oral antidiabetic agents displaced Right humeral surgical neck fracture Suspected C7, T7 anterior stable fractures CKD 3 Hypertension Hyperlipidemia Hypothyroidism Plan: Fall, near syncope/collapse secondary to hypoglycemia: Blood sugar has improved at this time patient currently taking glyburide recently had a dose cut in half as her blood sugar been running low. We will discontinue this medication continue to monitor glucose throughout the evening. We will continue with dextrose containing fluids until sugar stabilized. Diabetes mellitus type 2 [id number] with hyperglycemia on oral antidiabetic agents: Continue as above, will discontinue glyburide. Mild slid ing scale insulin. Will obtain A1c. displaced Right humeral surgical neck fracture: Ortho consulted, case discussed. Patient in sling. Suspected C7, T7 anterior stable fractures: We will obtain MRI C-spine, case was discussed with radiology and neurology, likely stable fracture. Could have c- collar for comfort, patient without pain at this time. CKD 3: Stable renal function from previous sees Dr. Howell. Continue IV fluids. Hypertension: Obtain and continue medications Hyperlipidemia: Obtain and continue medications Hypothyroidism: Obtain and continue medications DVT PPX: Lovenox Code status: Full Discharge Plan: Home Plan to discharge in: 48 Hours - Advance Directives Does patient have a Living Will: No Does patient have a Durable POA for Healthcare: No - Code Status/Comfort Care Code Status Assessed: Yes (Full code) Critical Care: No Time Spent Managing Pts Care (In Minutes): 55
[2022-01-15] MEDS ORDERED: Magnesium Sulfate 2gm IVPB 2 G/50 ML BAG IV ONE (23:01)
[2022-01-16] MEDS ORDERED: D5 0.9 NS 1,000 ML IV SCH (02:10)
[2022-01-16] MEDS ORDERED: ONDANSETRON 4 MG/2 ML VIAL IV PRN (02:10)
[2022-01-16 02:48] VITALS: BMI 42.5
[2022-01-16 03:41] LABS: Absolute Lymphocytes (CBC) 0.7 K/uL (0.7-4.9); Hematocrit 27.2 % (36.0-45.0); Lymphocytes % 6.6 % (15.3-44.8); MPV 8.4 fL (7.6-11.3); RBC Red Blood Cell Count 2.97 M/uL (3.86-4.86)
[2022-01-16 04:36] LABS: Albumin 2.5 g/dL (3.4-5.0); Bilirubin Total 0.3 mg/dL (0.2-1.0); C-Reactive Protein 3.88 mg/L (<3.00); Ferritin 36.4 ng/mL (8-388); Magnesium 2.1 mg/dL (1.8-2.4); Potassium 4.8 mmol/L (3.5-5.1); Protein, Total 5.6 g/dL (6.4-8.2); Thyroid Stimulating Hormone 1.19 uIU/mL (0.360-3.740)
[2022-01-16 04:55] LABS: Blood Morphology Comment NOT SEEN (NOT SEEN); Platelet Estimate ADEQ
[2022-01-16] MEDS ORDERED: NA CHLORIDE 0.9% 1,000 ML ONE (05:42)
[2022-01-16] MEDS: NA CHLORIDE 0.9% 1,000 ML IV SCH ×2 (05:51→20:41)
--- NOTE | 2022-01-16 06:34 | P.PN ---
Date of Service: 01/16/22 Subjective: R arm discomfort, feeling better glc improved nausea/vomiting ROS: 10 point ROS as noted above, otherwise negative Physical exam GEN: Alert, oriented, NAD HEENT: Normal conjunctiva, sclera anicteric CV: Regular rate and rhythm, no edema Pulm: Nonlabored respirations on room air ABD: Soft, nontender, nondistended MSK: L arm pain with ROM Integumentary: No rashes Neuro: Normal speech, normal affect Problem List Fall, near syncope/collapse secondary to hypoglycemia Diabetes mellitus type 2 [id number] with hyperglycemia on oral antidiabetic agents displaced Right humeral surgical neck fracture Suspected C7, T7 anterior stable fractures CKD 3 Hypertension Hyperlipidemia Hypothyroidism Physical therapy consulted, orthopedic surgery consulted Continue sling for patient Discontinue glyburide, sliding scale insulin Suspected cervical spine fracture, MRI C-spine pending Neurology consulted May need c-collar Stable renal function Hemoglobin decreased, anemia. Patient reports history of anemia Anticipate DC home tomorrow Time Spent Managing Pts Care (In Minutes): 35
[2022-01-16] MEDS: INSULIN -REGULAR HUMAN 50 UNIT/0.5 ML ML SQ SCH ×4 (07:30→20:41)
[2022-01-16] MEDS ORDERED: INFLUENZA VACCINE (for 6+ mo) 0.5 ML DOSE IMVAC ONE (08:00)
[2022-01-16] MEDS ORDERED: PNEUMOCOCCAL VACCINE 0.5 ML IMVAC ONE (08:00)
[2022-01-16] MEDS ORDERED: TRAMADOL HCL 50 MG TAB ONE (08:15)
[2022-01-16] MEDS ORDERED: ENOXAPARIN 30 MG/0.3 ML SQ ONE (08:15)
[2022-01-16] MEDS: ENOXAPARIN 30 MG/0.3 ML SQ SCH (08:53)
[2022-01-16] MEDS: TRAMADOL HCL 50 MG TAB PO PRN ×2 (08:53→20:42)
--- NOTE | 2022-01-16 10:09 | RAD REPORT ---
EXAM DESCRIPTION: MRI - C Spine Wo Cont - 01/16/2022 7:50 am CLINICAL HISTORY: Poss anterior C-7 fracture COMPARISON: No comparisons TECHNIQUE: Sagittal T1-weighted, T2-weighted and T2-STIR sequences were obtained as well as axial T2 medic sequence obtained. FINDINGS: C7 vertebral body compression fracture with less than 20% loss of height anteriorly. . Aga in noted are changes of diffuse idiopathic skeletal hyperostosis (dish). Mild central spinal stenosis is noted at C2-3 secondary to a small posterior disc osteophyte complex. No cord signal abnormality. No epidural hematoma. IMPRESSION: C7 vertebral body compression fracture without significant height loss, bony retropulsio n, malalignment, or epidural hematoma.
[2022-01-16] MEDS ORDERED: INSULIN -REGULAR HUMAN 50 UNIT/0.5 ML ML ONE (13:01)
--- NOTE | 2022-01-16 15:28 | ER ---
Nurse's Notes [facility] Name: Prema Soares Age: 72 yrs Sex: Female : 1950 Arrival Date: 01/15/2022 Time: 19:50 Bed 26 Private MD: Diagnosis: Fall on same level, unspecified;Adverse effect of insulin and oral hypoglycemic [antidiabetic] drugs;2-part displaced fracture of surgical neck of right humerus;Syncope Near;Obesity, unspecified;Other displaced fracture of seventh cervical vertebra, initial encounter for closed fracture-stable;Fracture of thoracic vertebra-#7 stable Presentation: 01/15 19:55 Chief complaint: Patient states: Reports fall just [employer] tonight, states she became dizzy mk and fell, BG on scene 60, BG 50 at time of triage. No blood thinners. Care prior to arrival: None. Mechanism of Injury: Fall from standing position. Trauma event details: Injury occurred: at home. 19:55 Acuity: DEYSI 2 19:55 Method Of Arrival: EMS: 20:10 Coronavirus screen: Vaccine status: Patient reports receiving the 2nd dose of the covid mk vaccine. Ebola Screen: Patient negative for fever greater than or equal to 101.5 degrees Fahrenheit, and additional compatible Ebola Virus Disease symptoms. Initial Sepsis Screen: Does the patient meet any 2 criteria? No. Patient's initial sepsis screen is negative. Does the patient have a suspected source of infection? No. Patient's initial sepsis screen is negative. Risk Assessment: Do you want to hurt yourself or someone else? Patient reports no desire to harm self or others. Onset of symptoms was January 15, 2022. Triage Assessment: 19:50 General: Appears in no apparent distress. mk 20:10 General: Behavior is cooperative. Pain: Complains of pain in right shoulder Pain does mk not radiate. Pain currently is 8 out of 10 on a pain scale. Quality of pain is described as aching, Pain began suddenly, s/p fall Is lasting more than 1 hour. EENT: Tympanic membrane clear on right ear and left ear. Neuro: Level of Consciousness is awake, alert, obeys commands, Oriented to person, place, time, situation, Geotechnical Intern are equal bilaterally Speech is normal, Facial symmetry appears normal, Pupils are Pupil Size: 2 bilaterally but brisk responses and equal. Neuro: vomiting [employer] after fall, denies LOC head or neck pain. Cardiovascular: Heart tones S1 S2 present Capillary refill < 3 seconds in bilateral fingers toes Clubbing of nail beds is absent JVD is absent Patient's skin is warm and dry. Pulses are 3+ in right radial artery, right brachial artery, left radial artery, left brachial artery, bilateral radial, brachial, femoral, popliteal, posterior tibial, and dorsalis pedis arteries. and right carotid pulse Rhythm is sinus rhythm. Respiratory: Airway is patent. Respiratory: Trauma Activation: Not Applicable Physician: ED Physician; Name: Jan; Notified At: ; Arrived At: Physician: General Surgeon; Name: ; Notified At: ; Arrived At: Physician: Radiology; Name: ; Notified At: ; Arrived At: Physician: Respiratory; Name: ; Notified At: ; Arrived At: Physician: Lab; Name: ; Notified At: ; Arrived At: Historical: - Allergies: 23:00 No Known Allergies; - Home Meds: 23:00 allopurinol 100 mg Oral tab 1 tab once daily [Active]; lisinopril 2.5 mg Oral tab 1 tab mk once daily [Active]; ezetimibe 10 mg oral tab 1 tab once daily [Active]; glyburide micronized 5 mg Oral tab 1 tab 2 times per day [Active]; levothyroxine 112 mcg cap 1 cap once daily [Active]; metoprolol tartrate 12.5 mg Oral tab 1 tab 2 times per day [Active]; pravastatin 10 mg oral tab 1 tab once daily [Active]; 23:02 folic acid 400 mcg Oral tab 1 tab once daily [Active]; B12 Active 2000 mcg chew oral mk chew [Active]; Fish Oil oral cap daily [Active]; acetaminophen 325 mg Oral tab 2 tabs nightly [Active]; aspirin 81 mg Oral chew 1 tab once daily [Active]; - Immunization history:: Adult Immunizations up to date, Client reports having NOT received the Covid vaccine. Pneumococcal vaccine is not up to date, Flu vaccine is not up to date. - Immunization history: Last tetanus immunization: unknown. - Family history:: not pertinent. - Social history:: Smoking status: Patient/guardian denies using tobacco. Screenin:30 Abuse screen: Denies threats or abuse. Nutritional screening: No deficits noted. mk Tuberculosis screening: No symptoms or risk factors identified. Fall Risk Fall in past 12 months (25 points). No secondary diagnosis (0 pts). IV access (20 points). Ambulatory Aid- None/Bed Rest/Nurse Assist (0 pts). Gait- Weak (10 pts.). Mental Status- Oriented to own ability (0 pts). Total Jaimes Fall Scale indicates High Risk Score (45 or more points). Fall prevention measures have been instituted. Side Rails Up X 2 Placed Close to Nursing Station. Primary Survey: 19:52 NO uncontrolled hemorrhage observed. A: The patient is alert. Airway: patent. mk Breathing/Chest: Respiratory pattern: regular, Respiratory effort: spontaneous, unlabored, Breath sounds: diminished. Circulation: Cardiac rhythm: sinus rhythm. Disability Alert. Exposure/Environment: All clothing and personal items were removed. Forensic evidence collection is not deemed to be indicated at this time. Items placed in patient belonging bag. 20:15 Reassessment Airway Airway Breathing/Chest Respiratory pattern Regular Circulation mk Heart rhythm Disability Alert. Assessment: 20:30 Neuro: Level of Consciousness is awake, alert, obeys commands, Oriented to person, mk place, time, situation, Geotechnical Intern are equal bilaterally Moves all extremities. pain w/ mvmt R shoulder. Pupils are Pupil Size: 2 bilaterally, brisk, round, equal vomiting s/p fall. Cardiovascular: Heart tones S1 S2 present Capillary refill < 3 seconds in bilateral fingers toes Clubbing of nail beds is absent JVD is absent Patient's skin is warm and dry. Pulses are 3+ in right radial artery, right brachial artery, right femoral artery, right posterior tibial artery, right dorsalis pedis artery, left radial artery, left brachial artery, left femoral artery, left posterior tibial artery, left dorsalis pedis artery, left carotid pulse and right carotid pulse. Respiratory: Airway is patent Trachea midline Respiratory effort is even, unlabored, Respiratory pattern is regular, symmetrical, Breath sounds are clear. GI: Abdomen is flat, non-distended, Bowel sounds present X 4 quads. : No signs and/or symptoms were reported regarding the genitourinary system. Derm: Skin is intact, is healthy with good turgor, Skin is dry, Skin is pink, warm \T\ dry. Skin temperature is warm. Musculoskeletal: Circulation, motion, and sensation intact. Capillary refill < 3 seconds, in bilateral fingers. toes. Range of motion: limited in right shoulder. Injury Description: pain R shoulder. 21:30 Reassessment: No changes from previously documented assessment. Patient and/or family mk updated on plan of care and expected duration. Pain level reassessed. Patient is alert, oriented x 3, equal unlabored respirations, skin warm/dry/pink. 22:30 Reassessment: Patient and/or family updated on plan of care and expected duration. Pain mk level reassessed. Patient is alert, oriented x 3, equal unlabored respirations, skin warm/dry/pink. Patient states feeling better. Pain: Complains of pain in R shoulder Pain currently is 5 out of 10 on a pain scale. Quality of pain is described as aching, Pain began suddenly, Is continuous. 23:05 Reassessment: patient aware of the need for a urine sample. al4 23:30 Reassessment: patient attempted to void on bedpan but was unsuccessful stating she does al4 not need to go at this time. 23:50 Reassessment: Report given to ED HOLD ISAIAS Perdomo. Pump/Meds checked at bedside during al4 transfer. Nurse and patient aware of need for urine. 23:57 Reassessment: VIKAS Wisdom gave permission to run magnesium sulfate with the D5 1/2 NS. al4 Vital Signs: 19:52 BP 142 / 96; Pulse 80; Resp 18; Temp 98.4(O); Pulse Ox 99% on R/A; Weight 86.18 kg (R); mk Height 4 ft. 8 in. (142.24 cm) (R); 20:30 BP 112 / 71; Pulse 86; Resp 18; Pulse Ox 100% ; mk 21:30 BP 116 / 97; Pulse 87; Resp 18; Pulse Ox 98% on R/A; mk 22:30 BP 99 / 53; Pulse 79; Resp 21; Pulse Ox 100% ; mk 23:45 BP 120 / 49; Pulse 84; Resp 20 S; Pulse Ox 99% on R/A; al4 19:52 Body Mass Index 42.60 (86.18 kg, 142.24 cm) Gulshan Coma Score: 19:52 Eye Response: spontaneous(4). Verbal Response: oriented(5). Motor Response: obeys commands(6). Total: 15. 20:30 Eye Response: spontaneous(4). Verbal Response: oriented(5). Motor Response: obeys mk commands(6). Total: 15. 21:30 Eye Response: spontaneous(4). Verbal Response: oriented(5). Motor Response: obeys mk commands(6). Total: 15. 22:30 Eye Response: spontaneous(4). Verbal Response: oriented(5). Motor Response: obeys mk commands(6). Total: 15. Trauma Score (Adult): 19:52 Eye Response: spontaneous(1); Verbal Response: oriented(1); Motor Response: obeys mk commands(2); Systolic BP: > 89 mm Hg(4); Respiratory Rate: 10 to 29 per min(4); Gulshan Score: 15; Trauma Score: 12 20:30 Eye Response: spontaneous(1); Verbal Response: oriented(1); Motor Response: obeys mk commands(2); Systolic BP: > 89 mm Hg(4); Respiratory Rate: 10 to 29 per min(4); Ringwood Score: 15; Trauma Score: 12 21:30 Eye Response: spontaneous(1); Verbal Response: oriented(1); Motor Response: obeys mk commands(2); Systolic BP: > 89 mm Hg(4); Respiratory Rate: 10 to 29 per min(4); Gulshan Score: 15; Trauma Score: 12 22:30 Eye Response: spontaneous(1); Verbal Response: oriented(1); Motor Response: obeys mk commands(2); Systolic BP: > 89 mm Hg(4); Respiratory Rate: 10 to 29 per min(4); Gulshan Score: 15; Trauma Score: 12 ED Course: 19:50 Patient arrived in ED. iw 19:52 Arm band placed on Patient placed in the treatment room. mk 19:54 Jasiel Montoya MD is Attending Physician. diamond 20:00 Patient has correct armband on for positive identification. Bed in low position. Call al4 light in reach. Side rails up X2. library monitor on. Pulse ox on. NIBP on. 20:05 Brian Little is Primary Nurse. al4 20:29 CBC with Automated Diff Sent. mk 20:29 Basic Metabolic Panel Sent. mk 20:29 Liver (Hepatic) Function Sent. mk 20:29 Basic Metabolic Panel Sent. mk 20:29 CBC with Diff Sent. mk 20:29 LFT's Sent. mk 20:30 Troponin HS Sent. mk 20:30 PT-INR Sent. mk 20:30 NT PRO-BNP Sent. mk 20:30 Magnesium Sent. mk 20:48 CT Traumagram (Head C Spine CAP wo con) In Process Unspecified. EDMS 21:03 Archie Glez MD is Hospitalizing Provider. diamond 21:30 Triage completed. mk 21:38 XRAY Chest (1 view) In Process Unspecified. EDMS 21:38 Shoulder Right (2 View) XRAY In Process Unspecified. EDMS 22:34 No provider procedures requiring assistance completed. Patient admitted, IV remains in mk place. 23:08 Patient maintains SpO2 saturation greater than 95% on room air. al4 23:09 Thermoregulation: warm blanket given to patient. al4 Administered Medications: 20:28 CANCELLED (low bg switched orderss): NS 0.9% 1000 ml IV at 125 ml/hr continuous mk 20:31 Drug: D10 in Water [2 mL/kg] 2 ml/kg Route: IVP; Site: left antecubital; mk 21:01 Follow up: Response: No adverse reaction; Blood sugar is elevated mk 21:12 Drug: D5-1/2 NS 1000 ml Route: IV; Rate: 125 ml/hr; Site: left antecubital; mk 22:24 Follow up: Response: No adverse reaction; Rate change 100 ml/hr; IV Status: Infusion mk continued; IV Intake: 250ml 22:18 Drug: Zofran (Ondansetron) 4 mg Route: IVP; Site: left antecubital; mk 22:25 Follow up: Response: No adverse reaction mk 22:18 Drug: morphine 4 mg Route: IVP; Site: left antecubital; mk 22:25 Follow up: Response: No adverse reaction mk 23:04 Drug: Magnesium Sulfate 2 grams Route: IVPB; Infused Over: 2 hrs; Site: left al4 antecubital; Intake: 22:24 IV: 250ml; Total: 250ml. Outcome: 21:06 Decision to Hospitalize by Provider. diamond 22:59 Admitted to ER Hold. Please see [facility] for further documentation. mk 22:59 Condition: stable 22:59 Instructed on the need for admit. 23:07 ERPatient's length of stay extended due to 01/16 15:27 Patient left the ED. ab2 Signatures: Dispatcher [employer] EDJasiel Lainez MD MD cha Williams, Irene RN Brian Ventura al4 Negra Urbano, Brian Snider RN ab2 Corrections: (The following items were deleted from the chart) 01/15 22:22 19:52 BP 142 / 96; Pulse 80bpm; Resp 18bpm; Pulse Ox 99% RA; Temp 98.4F Oral; [facility] 01/16 00:25 01/15 23:55 Reassessment: Report given to ED HOLD ISAIAS schofield al4 01/16 06:32 01/15 23:55 Reassessment: Report given to ED HOLD ISAIAS Perdomo. Pump/Meds checked at al4 bedside during transfer. al4
--- NOTE | 2022-01-17 01:21 | CON ---
Reason For Consultation: Consultation called because of cervical vertebral fracture, traumatic. History Of Present Illness: Ms. Soares is a 72-year-old patient with [id number] diabetes mellitus, hypothyroidism, dyslipidemia, hypertension, and gout, who comes to [facility] with an episode of hypoglycemia resulting in disorientation, confusion, and falling. She said she took h er diabetes medication and still felt weak. She said she checked blood sugars and found it to be nick und 34. She was brought into [facility]. At that time, she had began to improve her blood sugars by taking oral intake, but sugars at [facility] were initially 54 and subsequently in creased after being addressed intravenously to 218 and then 271 about 2 hours later. The patient ret urned to her baseline level of cognitive functioning and has been that way since. However, apparentl y, when her blood sugars were low, she stumbled and fell forward hitting the right upper extremity an d also hitting her head. Her trauma series identified oblique lucency in the C2-7 vertebrae suspicio us for fracture and subsequent MRI of the cervical spine identified a 20% loss of the C7 vertebral risa dy with compression fracture. Shoulder x-ray showed displaced surgical neck fracture of the right hu merus with some overriding. The patient was seen by the Orthopedic Service with recommendation of ri t arm sling and healing by secondary intention. I spoke with Dr. Glez, the hospitalist, and recom mended a hard cervical collar and the patient should be evaluated by Neurosurgery. At the time of my evaluation, she was fully oriented to person, place, time, and situation, follow al l commands appropriately and no evidence of disorientation. Past Medical History: As noted. Past Surgical History: Cholecystectomy and wrist surgery. Family History: Noncontributory. Social History: No alcohol, tobacco, or IV drug use. Review of Systems: Complains of diffuse weakness times with her blood sugar was low, but no persisting confusion. No fo pablo deficits in terms of face, arm, or leg weakness and numbness. No genitourinary or gastrointestin al active issues. Physical Examination: Vital Signs: Blood pressure 129/66, pulse 81, respiratory rate 16, temperature 96, and oxygen satura tion 98% to 100% on room air. Weight 190 pounds, height 4 feet 8 inches, BMI 40.6. General: Ms. Soares is resting in bed. She is in no significant distress. HEENT: She is normocephalic and atraumatic. She does have a right arm sling. Otherwise, no obvious areas of bruising on the head. It should be noted that her head CT scan showed no skull fracture, a bnormalities, and no subdural hematoma or intracranial bleeding. Motor Examination: The left arm is in a sling with some restriction due to the acute fracture and ed joyce. Her hand strength is good in the right upper extremity. Sensation of the right upper extremity and left upper extremity and bilateral lower extremities, no weakness detected, sensation intact in these areas as well. Coordination intact in the left upper and lower extremities bilaterally. Laboratory Studies: Complete blood count with differential essentially showed an elevated white coun t of 17.4 yesterday, today 10.5, neutrophils 87, and hemoglobin 8.9. INR 0.98. Chemistries: Sodium 130, potassium 4.8, creatinine 1.63, glucose range today 271 up to 332, calcium 8.3, and magnesium 2 .1. AST elevated at 42, ALT 52, and alkaline phosphatase of 239. C-reactive protein slightly elevat ed at 3.88. Procalcitonin less than 0.05. Urinalysis is pending. COVID-19 test is negative. Assessment: Ms. Soares is a 72-year-old patient with traumatic C7 fracture without significant cord compression. She has a right humeral neck fracture and does have a sling. She has diabetes mellitus with low blood sugar that led to diffuse weakness, disorientation, and fall with the fractures occur ring. Plan: 1.Hard cervical collar until the patient can be further evaluated by Neurosurgery. 2.Continue right arm restricted motion for healing by secondary intention. 3.Improve management of blood sugars, avoid episodes of hypoglycemia. 4.Once her kidney dysfunction has been addressed and she is ruled out for a systemic infection, she may be discharged and again follow up in Dr. Heart' office and with Neurosurgery, Dr. Reed, the [facility] neurosurgeon, has an office in [facility] on Fridays and the patient may hopefully be see n either this week or early next week. LB/ANGELL Voice ID: [id number] Report ID: [id number]
[2022-01-17 06:22] LABS: Hematocrit 23.7 % (36.0-45.0); MPV 8.1 fL (7.6-11.3)
[2022-01-17 06:43] LABS: Magnesium 2.1 mg/dL (1.8-2.4); Potassium 4.8 mmol/L (3.5-5.1)
[2022-01-17] MEDS: INSULIN -REGULAR HUMAN 50 UNIT/0.5 ML ML SQ SCH ×4 (07:30→19:55)
[2022-01-17] MEDS: TRAMADOL HCL 50 MG TAB PO PRN ×2 (08:31→14:51)
[2022-01-17] MEDS: ENOXAPARIN 30 MG/0.3 ML SQ SCH (08:32)
[2022-01-17] MEDS: NA CHLORIDE 0.9% 1,000 ML IV SCH ×3 (08:33→22:00)
--- NOTE | 2022-01-17 09:43 | P.CNS ---
Date of Consult: 01/17/22 Reason for Consult: MERISSA Primary Care Provider: Dr. Heart, Dr. Howell, Dr. Torres Chief Complaint: Fall, Hypoglycemia History of Present Illness: 72F w/ PMHx of CKD3b presumed to be 2/2 Htn/DM, baseline GFR around 34 ml/min as of 01/15/2022, Htn, HLD, DM2, hypothyroidism, gout, & chronic BLE edema who p/w a fall at home. She reports having prior shoulder injury. She reports remote hx of L knee injury & states her legs have been intermittently swollen since then, L > R. She was noted to be hypoglycemic on presentation. R shoulder x-ray revealed proximal humeral fracture. CT scan showed C7, T7, & L1 compression fracture. She reports having poor po intake for the past 3 days. She c/o nausea today. SCr was 1.5 on adm, today increased to 1.9. Urinalysis w/ proteinuria. She has 0.9g proteinuria on random UPCR. Urine chem non-prerenal. Allergies No Known Allergies Allergy (Unverified 01/16/22 01:51) Home Medications: Acetaminophen [Tylenol] 2 tab PO BEDTIME 01/16/22 Allopurinol 100 mg PO DAILY 01/16/22 Aspirin [Rene Chewable Aspirin] 1 tab PO DAILY 01/16/22 Cyanocobalamin/Folic Acid [P83-Tcyki Acid 2500-400 Mcg Tb] 1 tab PO DAILY 01/16/22 Docosahexanoic AC/Epa [Fish Oil 1,000 MG*] 1 cap PO DAILY 01/16/22 Ezetimibe 1 tab PO DAILY 01/16/22 Levothyroxine [Synthroid*] 1 tab PO DAILY 01/16/22 Lisinopril [Zestril] 2.5 mg PO DAILY 01/16/22 Metoprolol Tartrate [Lopressor*] 0.5 tab PO BID 01/16/22 Pravastatin [Pravachol*] 1 tab PO DAILY 01/16/22 glyBURIDE [Glyburide] 1 tab PO BID 01/16/22 - Past Medical/Surgical History Diabetic: Yes -: Diabetes mellitus type 2 -: Hypertension -: CKD -: Hypothyroidism -: Cholecystectomy -: Wrist surgery Psychosocial/ Personal History: Patient lives at home, alone but has caregivers Thursday to Thursday until noon - Social History Alcohol use: No CD- Drugs: No Caffeine use: No Place of Residence: Home Review of Systems General: Weakness Eyes: Unremarkable ENT: Unremarkable Respiratory: Unremarkable Cardiovascular: Unremarkable Gastrointestinal: Unremarkable Genitourinary: Unremarkable Musculoskeletal: Unremarkable (R shoulder pain) Integumentary: Unremarkable Neurological: Unremarkable Lymphatics: Unremarkable Physical Examination Temp Pulse Resp BP Pulse Ox 97.3 F 88 18 121/56 L 99 01/17/22 08:00 01/17/22 08:00 01/17/22 08:31 01/17/22 08:00 01/17/22 08:31 General: Other (appears as her stated age) HEENT: Atraumatic, Normocephalic Neck: Supple, JVD not distended Respiratory: Other (symmetric chest expansion) Cardiovascular: No rubs, No murmurs Gastrointestinal: Soft and benign, No guarding Musculoskeletal: Other (+R arm sling) Integumentary: No warmth Neurological: Normal speech, Normal tone Lymphatics: No axilla or inguinal lymphadenopathy Urinary: Other (no bladder distention) External genitalia: Deferred Rectal: Deferred Conclusions/Impression: # MERISSA 2/2 prerenal state +/- ATN from prolonged prerenal SCr was 1.5 on adm, today increased to 1.9 Urinalysis w/ proteinuria. She has mild proteinuria 0.9g on random UPCR Urine chem non-prerenal CPK wnl, no rhabdo Cont IV fluid 75 cc/hr until tomorrow [place] po fluid intake Anti-emetic prn Hold Lisinopril Monitor renal panel # CKD 3b presumed to be 2/2 Htn/DM Baseline eGFR 34 ml/min as of 01/15/2022 Monitor renal panel # Chronic BLE edema L > R Remote hx of L knee injury No indication for chronic diuretic use She agreed to resume wearing bilateral knee-high graduated compression stockings, 20-30 mmHg ankle pressure, wear during the daytime, remove at bedtime, to prevent brawny edema changes # Htn BP above goal Resume Metoprolol 25 mg po bid Hold Lisinopril Pain meds prn # DM2 Mngt per primary team # R proximal humeral fracture s/p fall Also has C7, T7, & L1 compression fractures PT/OT Ortho consult Start Ca + D supplementation po daily DEXA as outpt if not done recently F/u serum iPTH & 25OHD Bisphosphonate or Denosumab, depending on GFR, may start 6-12 wks after most recent sustained fracture # Anemia Hgb 7.7 Tsat adequate Monitor H/H
[2022-01-17 13:59] LABS: Urine Appearance CLEAR (Clear); Urine Bilirubin NEGATIVE (Negative); Urine Blood NEGATIVE (Negative); Urine Color YELLOW (Yellow); Urine Glucose NEGATIVE (Negative); Urine Protein 2+ (Negative); Urine Urobilinogen 0.2 mg/dL (0.2-1.0); Urine pH 5.5 (5.0-7.0)
[2022-01-17 14:00] LABS: Urine Microscopic Reflex ORDER UMIC
[2022-01-17 14:08] LABS: Urine Bacteria <20 /HPF (<20); Urine Mucus 1+ /HPF (NONE SEEN); Urine RBC <5 /HPF (NONE SEEN)
[2022-01-17 16:06] LABS: UR PROTEIN 70.1 mg/dL (<11.9); Urine Protein/Creatinine Ratio 0.92 ratio (<0.15)
--- NOTE | 2022-01-17 16:40 | P.PN ---
Date of Service: 01/17/22 Subjective: feels better no new complaints mild discomfort in R arm when trying to get out of bed no bleeding ROS: 10 point ROS as noted above, otherwise negative Physical exam GEN: Alert, oriented, pleasant, NAD HEENT: Normal conjunctiva, sclera anicteric CV: Regular rate and rhythm Pulm: Nonlabored respirations on room air ABD: Soft, nontender, nondistended MSK: R arm pain with ROM Integumentary: No rashes Neuro: Normal speech, normal affect Problem List Fall, near syncope/collapse secondary to hypoglycemia Diabetes mellitus type 2 mdo-llblfni-fiansggaf with hyperglycemia on oral antidiabetic agents displaced Right humeral surgical neck fracture Suspected C7, T7 anterior stable fractures MERISSA on CKD 3 Hypertension Hyperlipidemia Hypothyroidism acute anemia Physical therapy consulted, orthopedic surgery consulted Continue sling for patient Discontinue glyburide, sliding scale insulin Suspected cervical spine fracture, MRI C-spine with compression fracture Neurology consulted recommend soft c-collar renal function worsened, suspect pre-renal, continue IVF, nephrology consulted reports h/o anemia. trending down daily, no evidence of bleed, no palpable hematomas, no significantly large ecchymosis repeat h/h this afternoon Anticipate DC home in next 1-2 days Time Spent Managing Pts Care (In Minutes): 35
[2022-01-17 16:59] LABS: Hematocrit 23.3 % (36.0-45.0); MPV 8.5 fL (7.6-11.3); RBC Red Blood Cell Count 2.54 M/uL (3.86-4.86)
[2022-01-17] MEDS: METOPROLOL TAR 25 MG TAB PO SCH (18:41)
[2022-01-18] MEDS: METOPROLOL TAR 25 MG TAB PO SCH ×2 (05:19→20:35)
--- NOTE | 2022-01-18 06:16 | P.PN ---
Date of Service: 01/18/22 Subjective: Dizzy yesterday when standing up at work on physical therapy, able to still walk a few feet With intermittent sharp discomfort, mainly when she is getting up ROS: 10 point ROS as noted above, otherwise negative Physical exam GEN: Alert, oriented, pleasant, NAD HEENT: Normal conjunctiva, sclera anicteric CV: Regular rate and rhythm Pulm: Nonlabored respirations on room air MSK: R arm pain with ROM, R shoulder swelling, no significant ecchymosis Neuro: Normal speech, normal affect Problem List Fall, near syncope/collapse secondary to hypoglycemia Diabetes mellitus type 2 gbl-hamorei-twwbfujci with hyperglycemia on oral antidiabetic agents displaced Right humeral surgical neck fracture Suspected C7, T7 anterior stable fractures MERISSA on CKD 3 Hypertension Hyperlipidemia Hypothyroidism acute anemia Physical therapy consulted, orthopedic surgery consulted Continue sling for patient, nonoperative management at this time Discontinue glyburide, sliding scale insulin Suspected cervical spine fracture, MRI C-spine with compression fracture Neurology consulted recommend soft c-collar renal function worsened, suspect pre-renal, continue IVF, nephrology consulted, now improved reports h/o anemia. trending down daily, no evidence of bleed, no significant ecchymosis Repeat H&H more stable Right shoulder moderate swelling, will obtain CT of right shoulder, rule out large hematoma Continue physical therapy Anticipate DC home in next 1-2 days, outpatient physical therapy Time Spent Managing Pts Care (In Minutes): 35
[2022-01-18 06:31] LABS: Absolute Lymphocytes (CBC) 1.7 K/uL (0.7-4.9); Lymphocytes % 22.5 % (15.3-44.8); MPV 8.6 fL (7.6-11.3); RBC Red Blood Cell Count 2.64 M/uL (3.86-4.86)
[2022-01-18 06:46] LABS: Potassium 4.9 mmol/L (3.5-5.1)
[2022-01-18] MEDS: INSULIN -REGULAR HUMAN 50 UNIT/0.5 ML ML SQ SCH ×4 (07:30→20:17)
[2022-01-18] MEDS: ENOXAPARIN 30 MG/0.3 ML SQ SCH (08:20)
[2022-01-18] MEDS: CALCIUM CARB 500MG/VIT D 200 IU TAB PO SCH (08:20)
[2022-01-18] MEDS: NA CHLORIDE 0.9% 1,000 ML IV SCH (08:29)
[2022-01-18] MEDS: MORPHINE 2 MG/ML SYR IV PRN (09:10)
--- NOTE | 2022-01-18 15:40 | RAD REPORT ---
EXAM DESCRIPTION: CT - Shoulder Right Wo Cont - 01/18/2022 2:05 pm CLINICAL HISTORY: swelling eval for hematoma COMPARISON: Shoulder Right 2 View dated 01/15/2022 TECHNIQUE: Axial noncontrast 2 millimeter thick images were obtained through the right shoulder. Sag ittal and coronal 1 millimeter thick reconstruction images were generated and reviewed. All CT scans are performed using dose optimization technique as appropriate and may include automate d exposure control or mA/KV adjustment according to patient size. FINDINGS: Patient has a known right humerus surgical neck fracture detailed on recent plain film. Surgical neck fracture is noted on CT study. There are numerous small comminuted fracture fragments a long the main fracture plane. Bones are osteopenic. Pathologic component is not clearly seen. There i s 1/2 shaft with displacement of the distal fracture fragment along with angulation deformity. Advanced degenerative changes are present at the glenohumeral joint space with the joint space efface d and numerous subcortical degenerative cystic changes in the glenoid and humeral head. AC joint dege nerative change present without separation. No clavicle fracture or scapular fracture. Contusion and edema changes are present in the subcutaneous fatty tissues. There is edema within the triceps musculature but no measurable soft tissue hematoma. IMPRESSION: Right humerus surgical neck fracture with comminution along the fracture line. There is displacement and angulation deformity of the distal shaft fracture fragment. Contusion and edema changes are present in the soft tissues. There is contusion or edema of the trini ps musculature. A separate or discrete soft tissue hematoma is not seen.
--- NOTE | 2022-01-19 02:44 | PN ---
Date of Progress Note: 01/18/2022 Chief Complaint: Chronic kidney stage 3b secondary to hypertension and diabetes. Baseline creatinin e level was as of January 15, 2022. History Of Present Illness: The patient has multiple medical problems including gout, hypothyroidism , diabetes mellitus, hyperlipidemia, chronic lower extremity edema, and lymphedema. The patient pres ented to the hospital after she sustained fall at home. She had a prior shoulder injury. She also d eveloped left knee injury. CT scan showed C7, T7, and L1 compression fracture. Nephrology consultat ion was requested for chronic kidney disease and significant proteinuria of 0.9 g per 24 hours. The patient is taking multiple medications including metoprolol, pravastatin, glyburide, lisinopril, levo thyroxine, Zetia, allopurinol, and aspirin. Review of Systems: Denies fever or chills. Physical Examination: Lungs: Diminished breath sounds at bases. Heart: S1, S2. Abdomen: Soft, benign. Extremities: Slight edema. Impression And Plan: 1.Acute kidney injury secondary to prerenal state, complicated by acute tubular necrosis with nonoli guric urine output. Creatinine level has been plateauing. The patient likely has underlying chronic kidney disease stage 3b with proteinuria, which may diabetic nephropathy, diabetic kidney disease. The patient was evaluated for possible rhabdomyolysis. CPK level within normal limits, which rules o ut rhabdomyolysis. Continue IV fluids to prevent renal hypoperfusion and to treat acute kidney injur y. The patient was taken off lisinopril due to acute kidney injury to prevent hypokalemia. Monitor electrolytes. 2.Chronic kidney disease 3b presumed to be secondary to diabetes mellitus and hypertension. Continu e blood pressure medication. Adjust medication for optimal blood pressure control. COLT inhibitor is on hold due to acute kidney injury. 3.Remote history of knee injury. The patient will need physical therapy and further recommendation from primary team. 4.Anemia. Hemoglobin level at 7.7. TSAT is adequate. Monitor H and H. the patient may be a israel date for MASON or blood transfusion. EB/MODL Voice ID: [id number] Report ID: [id number]
--- NOTE | 2022-01-19 06:12 | P.PN ---
Date of Service: 01/19/22 Subjective: Continues with pain to right shoulder Dizziness when trying to get up out of bed, did not work with physical therapy due to this yesterday Dizziness has been more pronounced in the last 2 days, denies this symptom at home No further vomiting ROS: 10 point ROS as noted above, otherwise negative Physical exam GEN: Alert, oriented, pleasant, slightly uncomfortable HEENT: Normal conjunctiva, sclera anicteric CV: Regular rate and rhythm Pulm: Nonlabored respirations on room air MSK: R arm pain with ROM, R shoulder swelling, no significant ecchymosis Neuro: Normal speech, normal affect Problem List Fall, near syncope/collapse secondary to hypoglycemia Diabetes mellitus type 2 jmd-jmajnpf-lbwkytsjh with hyperglycemia on oral antidiabetic agents displaced Right humeral surgical neck fracture Suspected C7, T7 anterior stable fractures MERISSA on CKD 3 acute anemia Hypertension Hyperlipidemia Hypothyroidism Physical therapy consulted, orthopedic surgery consulted Continue sling for patient, nonoperative management at this time Discontinue glyburide, sliding scale insulin MRI C-spine with compression fracture, Neurology consulted recommend c-collar Renal function with initial worsening, improved with IV fluids. Nephrology following reports h/o anemia. Hemoglobin down trended first 2 days, no obvious source of bleed, repeat imaging of right shoulder obtained on 01/18, no significant large hematoma seen No significant ecchymosis on exam, no hematuria, no dark stools Hemoglobin now more stable, however patient does been reporting dizziness Suspect symptomatic from anemia. Possibly from pain medication as well Will transfuse 1 unit PRBC Continue physical therapy Anticipate DC home in next 1-2 days, outpatient physical therapy Time Spent Managing Pts Care (In Minutes): 35
[2022-01-19] MEDS: METOPROLOL TAR 25 MG TAB PO SCH ×2 (06:28→17:08)
[2022-01-19] MEDS: MORPHINE 2 MG/ML SYR IV PRN ×3 (06:29→20:18)
[2022-01-19] MEDS: NA CHLORIDE 0.9% 1,000 ML IV SCH (06:29)
[2022-01-19] MEDS: INSULIN -REGULAR HUMAN 50 UNIT/0.5 ML ML SQ SCH ×4 (07:30→20:19)
[2022-01-19] MEDS: ENOXAPARIN 30 MG/0.3 ML SQ SCH (09:10)
[2022-01-19] MEDS: CALCIUM CARB 500MG/VIT D 200 IU TAB PO SCH (09:10)
[2022-01-19 09:37] LABS: Hematocrit 22.4 % (36.0-45.0); MPV 8.2 fL (7.6-11.3); RBC Red Blood Cell Count 2.48 M/uL (3.86-4.86)
[2022-01-19] MEDS: lisinopriL 5 MG TAB PO SCH (09:43)
[2022-01-19] MEDS ORDERED: NA CHLORIDE 0.9% 250 ML IV SCH (11:00)
[2022-01-19 19:05] LABS: Hematocrit 26.5 % (36.0-45.0)
[2022-01-19 20:59] VITALS: O2SAT 96
--- NOTE | 2022-01-20 01:11 | PN ---
Date of Progress Note: 01/19/2022 Chief Complaint: Acute on chronic kidney injury, chronic kidney disease stage 3B secondary to hypert ension, and diabetes. History Of Present Illness: The patient has multiple medical problems including history of gout, mu betes mellitus, lower extremity edema, and lymphedema. The patient presented to the hospital after s he sustained fall at home. She had a prior shoulder injury. She also developed left knee pain. CT scan was done and showed T7 and L1 compression fracture. The patient has proteinuria of moderate deg ree and 24-hour urine showed proteinuria of 0.9 g for 24 hours. The patient is taking multiple medic ations, including pravastatin, glyburide, lisinopril, and levothyroxine. Review of Systems: Denies fever or chills. Today she is getting blood transfusion for acute on chronic anemia. Physical Examination: Heart: S1, S2. Regular rate and rhythm. Abdomen: Soft, benign edema slight lower extremity edema. Impression And Plan: 1.Acute on chronic kidney injury, prerenal azotemia, nonoliguric, acute tubular necrosis with renal hypoperfusion. Serum creatinine level is plateauing. The patient is receiving blood transfusion. 2.The patient was evaluated for possible rhabdomyolysis. CK level is within normal limits. Continu e IV fluids and today blood transfusion to prevent hypovolemic state. The patient has severe anemia and plan is to check H and H after transfusion. Monitor blood pressure closely. 3.Chronic kidney disease 3B secondary to diabetes mellitus and hypertension. COLT inhibitor is on ho ld due to acute kidney injury. 4.Remote history of knee injury. The patient will continue physical therapy. 5.Anemia. Monitor hemoglobin level. EB/MODL Voice ID: [id number] Report ID: [id number]
[2022-01-20 04:07] LABS: Hematocrit 25.8 % (36.0-45.0); MPV 8.2 fL (7.6-11.3); RBC Red Blood Cell Count 2.86 M/uL (3.86-4.86)
[2022-01-20 04:21] LABS: Potassium 4.8 mmol/L (3.5-5.1)
[2022-01-20] MEDS: METOPROLOL TAR 25 MG TAB PO SCH (05:12)
[2022-01-20] MEDS: INSULIN -REGULAR HUMAN 50 UNIT/0.5 ML ML SQ SCH ×2 (07:30→11:30)
[2022-01-20] MEDS ORDERED: LEVOTHYROXINE SOD 0.112 MG TAB PO SCH (07:30)
[2022-01-20] MEDS: ENOXAPARIN 30 MG/0.3 ML SQ SCH (08:38)
[2022-01-20] MEDS: CALCIUM CARB 500MG/VIT D 200 IU TAB PO SCH (08:38)
[2022-01-20] MEDS: lisinopriL 5 MG TAB PO SCH (08:38)
[2022-01-20] MEDS ORDERED: ASPIRIN 81 MG CHEWABLE TABLET PO SCH (09:00)
[2022-01-20 12:25] VITALS: BP 156/71; TEMP 97.4
--- NOTE | 2022-01-20 17:48 | P.DS ---
Admission Date: 01/15/22 Discharge Date: 01/20/22 Primary Care Provider: Dr. Heart, Dr. Howell, Dr. Torres Disposition: OR HOME/HOME HEALTH CARE Discharge Condition: GOOD Reason for Admission: Fall, Hypoglycemia Consultations: Neurology Nephrology Procedures: Problem List Fall, near syncope/collapse secondary to hypoglycemia Diabetes mellitus type 2 sax-nznsior-vvyvkuenb with hyperglycemia on oral antidiabetic agents displaced Right humeral surgical neck fracture Suspected C7, T7 anterior stable fractures MERISSA on CKD 3 acute anemia Hypertension Hyperlipidemia Hypothyroidism Brief History of Present Illness: 72yo f, PMH: NIDDM2, HTN, HLD, hypothyroidism, gout, CKD, presented to ED after fall. Found to have g. X-ray of the right shoulder which demonstrated displaced surgical neck fracture of the right humerus with some overriding, CT head C-spine chest abdomen pelvis without contrast demonstrated to suspected fractures in the spine 1 at C7 and one at T7 neither have bony retropulsion or vertebral height loss patient is a background of diffuse idiopathic skeletal hyperostosis which predisposes to fractures. ED provider discussed case with radiologist who reported that the fracture on C7 was anterior and appears stable, case was also discussed with neurology who stated it would be appropria te to admit here and get an MRI of the C-spine tomorrow. C-collar can be applied for comfort if patient was hurting, patient was without pain at this time Hospital Course: Patient was found to have a proximal right humeral fracture. Orthopedic surgery was consulted and recommended sling and non-weight bearing. Patient to follow up in the office in the next 1-2 weeks. She was also noted to have a mild compression fracture in her cervical spine. Neurology was consulted and recommended use of hard cervical collar until the patient can be further evaluated by Neurosurgery. Hospitalization was prolonged due to anemia. Her hemoglobin downtrended and she became more symptomatic - feeling dizzy with standing/ambulation. She received 1 unit of PRBCs with improvement and stability of her hemoglobin. A CT of her shoulder was repeated and did not reveal any changes, no large hematoma. Patient was dehydrated on admission and renal function improved with IV fluids. Patient was deemed stable for discharge home. She chose to continue physical therapy as outpatient. Advised to discontinue diabetes medications. This lead to her hypoglycemia and fall. Follow up with PCP within 1 week. Vital Signs/Physical Exam: Physical exam GEN: Alert, oriented, pleasant HEENT: Normal conjunctiva, sclera anicteric CV: Regular rate and rhythm Pulm: Nonlabored respirations on room air MSK: R arm pain with ROM, R shoulder swelling, no significant ecchymosis Neuro: Normal speech, normal affect Temp Pulse Resp BP Pulse Ox 97.4 F 73 18 156/71 H 95 01/20/22 12:00 01/20/22 12:00 01/20/22 12:00 01/20/22 12:00 01/20/22 12:00 Laboratory Data at Discharge: WBC 7.10 K/uL (4.3-10.9) 01/20/22 03:49 Hgb 8.8 g/dL (12.0-15.0) L 01/20/22 03:49 Hct 25.8 % (36.0-45.0) L 01/20/22 03:49 Plt Count 269 K/uL (152-406) 01/20/22 03:49 PT 11.3 SECONDS (9.5-12.5) 01/15/22 20:22 INR 0.98 01/15/22 20:22 Sodium 134 mmol/L (136-145) L 01/20/22 03:49 Potassium 4.8 mmol/L (3.5-5.1) 01/20/22 03:49 BUN 27 mg/dL (7-18) H 01/20/22 03:49 Creatinine 1.54 mg/dL (0.55-1.3) H 01/20/22 03:49 Glucose 111 mg/dL (74-106) H 01/20/22 03:49 Phosphorus 3.6 mg/dL (2.5-4.9) 01/18/22 05:35 Magnesium 2.0 mg/dL (1.8-2.4) 01/18/22 05:35 Total Bilirubin 0.3 mg/dL (0.2-1.0) 01/16/22 03:23 AST 42 U/L (15-37) H 01/16/22 03:23 ALT 52 U/L (12-78) 01/16/22 03:23 Alkaline Phosphatase 139 U/L (45-117) H 01/16/22 03:23 Triglycerides 61 mg/dL (<150) 01/16/22 03:23 Cholesterol 107 mg/dL (<200) 01/16/22 03:23 HDL Cholesterol 43 mg/dL (40-60) 01/16/22 03:23 Cholesterol/HDL Ratio 2.49 01/16/22 03:23 Lipase 94 U/L (73-393) 01/15/22 20:22 Home Medications: Acetaminophen [Tylenol] 2 tab PO BEDTIME 01/16/22 Allopurinol 100 mg PO DAILY 01/16/22 Aspirin [Rene Chewable Aspirin] 1 tab PO DAILY 01/16/22 Cyanocobalamin/Folic Acid [T82-Anago Acid 2500-400 Mcg Tb] 1 tab PO DAILY 01/16/22 Docosahexanoic AC/Epa [Fish Oil 1,000 MG*] 1 cap PO DAILY 01/16/22 Ezetimibe 1 tab PO DAILY 01/16/22 Levothyroxine [Synthroid*] 1 tab PO DAILY 01/16/22 Lisinopril [Zestril] 2.5 mg PO DAILY 01/16/22 Metoprolol Tartrate [Lopressor*] 0.5 tab PO BID 01/16/22 Pravastatin [Pravachol*] 1 tab PO DAILY 01/16/22 Physician Discharge Instructions: PROBLEM: Proximal Right Humeral Fracture GOAL: Clear understanding of disease process INSTRUCTIONS: Patient was found to have a proximal right humeral fracture. Orthopedic surgery was consulted and recommended sling and non-weight bearing. Patient to follow up in the office in the next 1-2 weeks. She was also noted to have a mild compression fracture in her cervical spine. Neurology was consulted and recommended use of hard cervical collar until the patient can be further evaluated by Neurosurgery. Hospitalization was prolonged due to anemia. Her hemoglobin downtrended and she became more symptomatic - feeling dizzy with standing/ambulation. She received 1 unit of PRBCs with improvement and stability of her hemoglobin. A CT of her shoulder was repeated and did not reveal any changes, no large hematoma. Patient was dehydrated on admission and renal function improved with IV fluids. Patient was deemed stable for discharge home. She chose to continue physical therapy as outpatient. Advised to discontinue diabetes medications. This lead to her hypoglycemia and fall. Follow up with PCP within 1 week. If symptoms worsen, please go to the ER. Diet: ADA Activity: Fall precautions DME DME: Date Ordered: Name of Company: [employer] Services Needed: Home Health Name of Company: Date or Referral: IMMUNIZATION Influenza Vaccine Indicated: Yes Influenza Vaccine Given: No Date Given: Pneumonia Vaccine Indicated: Yes Pneumonia Vaccine Given: No Date Given: Diet: ADA Activity: Fall precautions Followup: NONE,NONE [Primary Care Provider] - Time spent managing pt's care (in minutes): 45
--- NOTE | 2022-01-22 22:10 | CON ---
Date of Consultation: 01/16/2022 Reason For Consultation: Right shoulder pain. History Of Present Illness: Prema is a 72-year-old female with history of diabetes, hypothyroidism, hyperlipidemia, hypertension, gout, and chronic kidney disease, who presented to the emergency depart ment after sustaining a fall onto her right side. Patient states that she had a drop in her glucose and fell onto her right side. She was seen in the emergency room and had x-rays which demonstrated a right proximal humerus fracture and I was consulted for further evaluation and treatment. The patie nt reports pain in her right shoulder at this time. She denies any numbness or tingling in her hand at this time. Review of Systems: As above, otherwise negative. Past Medical History: Includes diabetes, hypertension, chronic kidney disease, hypothyroidism. Past Surgical History: Includes cholecystectomy and wrist surgery. Social History: Lives at home alone with caregivers. Social History: Denies smoking or alcohol use. Physical Examination: General: No apparent distress. HEENT: Normocephalic, atraumatic. Neck: Supple. Cardiovascular: Brisk cap refill to all digits. Chest: Nonlabored breathing. Abdomen: Nondistended. Psychiatric: Responds to exam. Musculoskeletal: Right upper extremity, tenderness to palpation of the proximal humerus. Pain with range of motion the right shoulder. No tenderness over the elbow, forearm, or wrist. Positive firin g of EPL, FPL, intrinsics. Sensation grossly intact distally. Left upper extremity, no pain with ra nge of motion. No gross deformities. No obvious dislocations. Bilateral lower extremities, functio nal range of motion. No pain. No gross deformities. No obvious dislocations. Diagnostic Studies: X-ray and CT scan demonstrate a comminuted right proximal humerus fracture with displacement. Assessment And Plan: Ms. Soares is a 72-year-old female with a right proximal humerus fracture. I d iscussed with the patient at length the diagnosis as well as treatment plan. We will proceed with a trial of nonoperative treatment. The patient will remain in the shoulder sling at this time and alec in nonweightbearing. She may follow up in my clinic in 2 weeks for re-evaluation and repeat x-rays o f the right shoulder. CV/MODL Voice ID: [id number] Report ID: [id number]
== END 2022-01-20 13:38 | disposition home or self-care (01) | DRG 638 ==
LOC: ER 19:15 → ERHOLD 22:15 → UNDODISIN 01-16 13:58 → 2ND 01-16 15:06
PROVIDERS: ADMIT Hospitalist; ATTEND Hospitalist
DX: E09.649 Drug or chemical induced diabetes mellitus with hypoglycemia without coma (principal); S42.211A Unspecified displaced fracture of surgical neck of right humerus, initial encounter for closed fracture; S12.600A Unspecified displaced fracture of seventh cervical vertebra, initial encounter for closed fracture; S22.069A Unspecified fracture of T7-T8 vertebra, initial encounter for closed fracture; T38.3X5A Adverse effect of insulin and oral hypoglycemic [antidiabetic] drugs, initial encounter; Y92.009 Unspecified place in unspecified non-institutional (private) residence as the place of occurrence of the external cause; W18.30XA Fall on same level, unspecified, initial encounter; I12.9 Hypertensive chronic kidney disease with stage 1 through stage 4 chronic kidney disease, or unspecified chronic kidney disease; E11.22 Type 2 diabetes mellitus with diabetic chronic kidney disease; N18.32 Chronic kidney disease, stage 3b; N17.0 Acute kidney failure with tubular necrosis; D64.9 Anemia, unspecified; E78.5 Hyperlipidemia, unspecified; E03.9 Hypothyroidism, unspecified; M10.9 Gout, unspecified; Z20.822 Contact with and (suspected) exposure to COVID-19
CPT/HCPCS: 36415; 36430; 70450; 71045; 71250; 72125; 72141; 73200; 80048; 80053; 80061; 80076; 81003; 81015; 82306; 82550; 82570; 82728; 82947; 83540; 83690; 83735; 83880; 83935; 83970; 84100; 84132; 84145; 84156; 84300; 84439; 84443; 84466; 84484; 85014; 85018; 85025; 85027; 85610; 86140; 86850; 86900; 86901; 87086; 87088; 93005; 96361; 96374; 96375; 97110; 97116; 97161; 97530; 99285; J1650; J2270; J2405; J3475; J7030; J7050; J7799; P9016; U0003

== ENCOUNTER 2024-07-19 22:02 | Inpatient (IN) | payer OTHER ==
--- OUTSIDE RECORDS SUMMARY | 2024-07-19 22:05 | XMS REPORT | Continuity of Care Document ---
Author Name Unknown Address [address] [facility] [address] [place] [address] [facility] Address [address] 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 Name Role Phone SOFI NIÑO Primary Care Physician Unavaila LORAINE Cunningham Attending Clinician Unavailable MIGUEL SHAY Attending Clinician Unavailable MIGUEL SHAY Attending Clinician Unavailable Doctor Unassigned, [place] Attending Clinician U Loraine Luong MD Attending Clinician RADIOLOGY Attending Clinician Unavailable Radiology Attending Clinician Unavailable Vaishali Kahn MD Attending Clinician [phone] Meena Ramirez Attending Clinician [phone] MEENA RAJPUT Attending Clinician Unavailable VAISHALI KAHN Attending Clinician UnavailYOLANDA Sheikh Admitting Clinician Unavailable Payers Payer Name Policy Type Policy Number Effective Date Expirati on Date Source [facility] [id number] 2020 00:00:00 [place] [id number] 2016 00:00:00 MEDICARE PART A \T\ B [id number] 2016 00:00:00 Problems Condition Name Condition Details Condition Category Status Onset Date Resolution Date Last Treatment Date Treating Clinician Comments Source Morbid obesity with body mass index of 40.0-49.9 Morbid obesity with body mass index of 40.0-49.9 Disease Active 06-25 00:00: 00 [facility] Chest pain Chest pain Disease Active 06-25 00:00: 00 [facility] Morbid obesity with body mass index of 50 or higher Morbid obesity with body mass index of 50 or higher Disease Active 06-25 00:00: 00 [facility] Cholangiti s Cholangiti s Disease Active 06-25 00:00: 00 [facility] Obesity Obesity Disease Active 08-26 00:00: 00 [facility] Pleural effusion Pleural effusion Disease Active 08-22 00:00: 00 [facility] Gait abnormalit y Gait abnormalit y Disease Active 07-11 00:00: 00 [facility] Choledocho lithiasis Choledocho lithiasis Disease Active 07-07 00:00: 00 [facility] 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 Disease Active 07-07 00:00: 00 [facility] Abnormal LFTs (liver function tests) Abnormal LFTs (liver function tests) Disease Active 07-07 00:00: 00 [facility] Hyperbilir ubinemia Hyperbilir ubinemia Disease Active 07-07 00:00: 00 [facility] Cholelithi asis Cholelithi asis Disease Active 07-04 00:00: 00 [facility] Hypertensi on Hypertensi on Disease Recurre nce 07-04 00:00: 00 [facility] HLD (hyperlipi demia) HLD (hyperlipi demia) Disease Active 2008-11 00:00: 00 Overview: Formattin g of this note might be different from the original. ICD10 Diagnosis Term Special Education Instructor Utility [facility] Diabetes mellitus type 2, uncontroll ed, without complicati ons Diabetes mellitus type 2, uncontroll ed, without complicati ons Disease Active 2008-11 00:00: 00 Overview: Formattin g of this note might be different from the original. 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 Retinopat hy cloudicat ion [facility] Allergies, Adverse Reactions, Alerts Allergy Name Allergy Type Status Severity Reaction(s) Onset Date Inactive Date Treating Clinician Comments Source No Known Allergie s DA Active U 06-18 00:00: 00 [facility] NO KNOWN ALLERGIE S Drug Class Active [facility] Social History Social Habit Start Date Stop Date Quantity Comments Source Exposure to SARS-CoV-2 (event) 2022-12-06 00:00:00 2022-12-16 10:53:[address] [facility] Alcohol intake 2022-03-14 00:00:00 2022-03-14 00:00:00 0 /d [facility] Cigarettes smoked current (pack per day) - Reported 2017-06-25 00:00:00 2017-06-25 00:00:[address] [facility] Cigarette pack-years 2017-06-25 00:00:00 2017-06-25 00:00:[address] [facility] Tobacco use and exposure 2017-06-25 00:00:00 2017-06-25 00:00:00 Smokeless tobacco non-user [facility] History of tobacco use 1997-11-30 00:00:[address] [facility] Sex Assigned At 1950 00:00:00 1950 00:00:[address] [facility] Smoking Status Start Date Stop Date Source Ex-smoker 2017-06-25 00:00:00 2017[facility] Ordered Medication Name Filled Medication Name Start Date Stop Date Current Medication? Ordering Clinician Indication Dosage Frequency Signature (SIG) Comments Components Source DICLOFENAC 75 mg EC tablet 01-03 00:00: 00 Yes [id number] TAKE 1 TABLET BY MOUTH TWICE DAILY WITH MEALS [facility] metoprolol succinate XL (TOPROL XL) 25 mg 24 hr tablet 07-03 18:17: 42 Yes 25mg Take 25 mg by mouth 2 (two) times daily. Indication s: Take 1/2 tab two times daily [facility] PYRIDOXINE HCL, VITAMIN B6, (VITAMIN B-6 ORAL) 07-03 18:17: 42 Yes 100mg Take 100 mg by mouth daily. [facility] FOLIC ACID ORAL 07-03 18:17: 42 Yes 400ug Take 400 mcg by mouth daily. [facility] CYANOCOBALA MIN, VITAMIN B-12, (VITAMIN B12 ORAL) 07-03 18:17: 42 Yes 2000ug Take 2,000 mcg by mouth daily. [facility] traMADOL 50 mg tablet 07-03 18:17: 42 Yes 50mg Take 50 mg by mouth daily. [facility] Douglas-3-DHA -EPA-Fish Oil (FISH OIL) 1,000 mg (120 mg-180 mg) Cap 07-03 18:17: 42 Yes 1000mg Take 1,000 mg by mouth daily. [facility] furosemide 20 mg tablet 07-03 18:17: 42 Yes 20mg Take 20 mg by mouth daily. [facility] amLODIPine 5 mg tablet 07-03 00:00: 00 Yes 10mg Take 2 tablets by mouth daily. [facility] glyBURIDE (DIABETA) 5 mg tablet 12-19 00:00: 00 Yes [facility] levothyroxi ne (SYNTHROID) 125 mcg tablet 05-10 00:00: 00 Yes 125ug Take 1 Tab by mouth daily. [facility] PRAVASTATIN 80 MG ORAL TAB 2008-11 00:00: 00 Yes 1 tab PO QHS [facility] Procedures Procedure Date / Time Performed Performing Clinicia n Source REFERRAL- REQUEST/RESPONSE 2023-01-15 06:01:00 Doctor Unassigned, [place] [facility] US ABDOMEN LIMITED 2022-12-19 19:37:21 Requisition, Justin per [facility] CONSENT/REFUSAL FOR DIAGNOSIS AND TREATMENT 2022-12-19 18:39:38 Doctor Unassigned, [place] [facility] ASSIGNMENT OF BENEFITS 2022-12-19 18:38:51 Docto r Unassigned, [place] [facility] REFERRAL- REQUEST/RESPONSE 2022-05-29 05:01:00 Doctor Unassigned, [place] [facility] EXTERNAL PROVIDER RECORDS 2022-05-09 05:01:00 Doctor Unassigned, [place] [facility] Encounters Start Date/Time End Date/Time Encounter Type Admission Type Attending [facility] Care Facility Care Department Encounter ID Source 2024-03-29 09:30:00 2024-03-29 09:30:00 Outpatient R LORAINE STILES [facility] [id number] [facility] 2023-12-30 13:30:00 2023-12-30 13:30:00 Outpatient R MIGUEL SHAY YU [facility] [id number] [facility] 2023-10-28 09:30:00 2023-10-28 09:30:00 Outpatient R MIGUEL SHAY YU [facility] [id number] [facility] 2023-01-15 00:00:00 2023-01-15 00:00:00 Orders Only Doctor Unassigned, [place] [facility] 1.840.114 350.1.13.10 4.2.7.2.686 [id number] [id number] [facility] 2023-01-02 00:00:00 2023-01-02 00:00:00 Telephone Loraine Stiles [facility] 1..840.114 350.1.13.10 4.2.7.2.686 [id number] [facility] 2022-12-19 12:40:45 2022-12-19 23:59:00 Outpatient R RADIOLOGY [facility] [id number] [facility] 2022-12-19 12:40:45 2022-12-19 23:59:00 Hospital Encounter Radiology [facility] 1.840.114 350.1.13.10 4.2.7.2.686 [id number] [facility] 2022-05-29 00:00:00 2022-05-29 00:00:00 Orders Only Doctor Unassigned, [place] [facility] 1.2840.114 350.1.13.10 4.2.7.2.686 [id number] [id number] [facility] 2022-05-28 00:00:00 2022-05-28 00:00:00 [facility] 1.2840.114 350.1.13.10 4.2.7.2.686 [id number] [facility] 2022-05-28 00:00:00 2022-05-28 00:00:00 [facility] 1.2840.114 350.1.13.10 4.2.7.2.686 [id number] [facility] 2022-05-22 00:00:00 2022-05-22 00:00:00 Telephone Titus [facility] 1.2840.114 350.1.13.10 4.2.7.2.686 [id number] [facility] 2022-05-09 00:00:00 2022-05-09 00:00:00 Orders Only Doctor Unassigned, [place] [facility] 1.2840.114 350.1.13.10 4.2.7.2.686 [id number] [facility] 2022-04-14 00:00:00 2022-04-14 00:00:00 Telephone Titus [facility] 1.2840.114 350.1.13.10 4.2.7.2.686 [id number] [facility] 2022-04-09 00:00:00 2022-04-09 00:00:00 Telephone [facility] 1.2.840.114 350.1.13.10 4.2.7.2.686 [id number] [facility] 2022-03-24 00:00:00 2022-03-24 00:00:00 Telephone [facility]ishali Kahn [facility] 1.2.840.114 350.1.13.10 4.2.7.2.686 [id number] [facility] 2022-03-24 00:00:00 2022-03-24 00:00:00 Telephone Vaishali Kahn [facility] 1.2.840.114 350.1.13.10 4.2.7.2.686 [id number] [facility] 2022-03-19 00:00:00 2022-03-19 00:00:00 Telephone Rajput Meena Diaz [facility] 1.2.840.114 350.1.13.10 4.2.7.2.686 [id number] [facility] 2022-03-19 00:00:00 2022-03-19 00:00:00 Telephone Titus Me[facility] 1.2.840.114 350.1.13.10 4.2.7.2.686 [id number] [facility] 2022-03-14 08:05:00 2022-03-14 23:59:00 Outpatient R MEENA RAJPUT [facility] [id number] [facility] 2022-03-14 08:00:00 2022-03-14 08:15:00 Office Visit Titus Meena [facility] 1.840.114 350.1.13.10 4.2.7.2.686 [id number] [facility] 2022-03-14 08:00:00 2022-03-14 08:00:00 Outpatient Seun RAJPUT [facility] [id number] [facility] 2022-03-10 00:00:00 2022-03-10 00:00:00 Orders Only Doctor Unassigned, [place] [facility] 1.84114 350.1.13.10 4.2.7.2.686 [id number] [facility] 2022-02-07 09:14:53 2022-02-07 23:59:00 Outpatient Seun RAJPUT [facility] [id number] [facility] 2022-02-07 09:15:00 2022-02-07 09:45:00 [facility] 1.84.114 350.1.13.10 4.2.7.2.686 [id number] [facility] 2022-02-07 09:15:00 2022-02-07 09:15:00 Outpatient Seun RAJPUT [facility] [id number] [facility] 2021-12-09 00:00:00 2021-12-09 00:00:00 Orders Only Doctor Unassigned, [place] [facility] 1.84.114 350.1.13.10 4.2.7.2.686 [id number] [facility] 2021-09-10 00:00:00 2021-09-10 00:00:00 Letter (Out) Vaishali Kahn [facility] 1.840.114 350.1.13.10 4.2.7.2.686 [id number] [facility] 2021-09-09 14:30:00 2021-09-09 14:30:00 Outpatient R VAISHALI KAHN [facility] [id number] [facility] 2021-09-09 13:44:03 2021-09-09 14:12:31 Office Visit Vaishali Kahn [facility] 1.2.840.114 350.1.13.10 4.2.7.2.686 [id number] [facility] 2021-05-09 09:15:00 2021-05-09 09:15:00 Outpatient Seun RAJPUT [facility] [id number] [facility] 2021-05-09 08:44:54 2021-05-09 09:01:30 Office Visit [facility] 1.2.840.114 350.1.13.10 4.2.7.2.686 [id number] [facility] 2021-05-02 08:47:36 2021-05-02 09:22:49 [facility] 1.2.840.114 350.1.13.10 4.2.7.2.686 [id number] [facility] 2021-05-02 09:00:00 2021-05-02 09:00:00 Outpatient MEENA HOLLOWAY [facility] [id number] [facility] 2021-04-25 08:40:03 2021-04-25 09:12:05 Office Visit Titus [facility] Special bridget Lewis 1.2.840.114 350.1.13.10 4.2.7.2.686 [id number] [facility] 2021-04-25 09:00:00 2021-04-25 09:00:00 Outpatient MEENA HOLLOWAY [facility] [id number] [facility] 2021-04-23 09:00:00 2021-04-23 09:00:00 Outpatient R MEENA RAJPUT [facility] [id number] [facility] 2021-04-08 00:00:00 2021-04-08 00:00:00 Orders Only Doctor Unassigned, [place] [facility] 1.2.840.114 350.1.13.10 4.2.7.2.686 [id number] [facility] 2021-04-03 00:00:00 2021-04-03 00:00:00 Telephone Vaishali Kahn [facility] bridget Lewis 1.2.840.114 350.1.13.10 4.2.7.2.686 [id number] [facility] 2021-03-21 09:55:53 2021-03-21 23:59:00 Hospital Encounter Sarah Vaishali Mullins [facility] [place] 1.2.840.114 350.1.13.10 4.2.7.2.686 [id number] [facility] 2021-03-21 09:32:32 2021-03-21 10:08:15 Office Visit Vaishali Kahn [facility] [place] 1.2.840.114 350.1.13.10 4.2.7.2.686 [id number] [facility] 2021-03-21 10:00:00 2021-03-21 10:00:00 Outpatient R VAISHALI KAHN [facility] [id number] [facility] 2020-01-30 13:49:25 2020-01-30 14:04:25 Office Visit Vaishali Kahn [facility] [place] 1.2.840.114 350.1.13.10 4.2.7.2.686 [id number] 2020-01-30 13:49:25 2020-01-30 14:04:25 Office Visit Vaishali Kahn [facility] bridget Johnson 1.2.840.114 350.1.13.10 4.2.7.2.686 [id number] [facility] 2020-01-30 13:45:00 2020-01-30 13:45:00 Outpatient R VAISHALI KAHN [facility] [id number] [facility] 2020-01-30 00:00:00 2020-01-30 00:00:00 Orders Only Doctor Unassigned, [place] [facility] 1.2.840.114 350.1.13.10 4.2.7.2.686 [id number] [facility]
[2024-07-20] MEDS ORDERED: ONDANSETRON 4 MG/2 ML VIAL IV PRN (01:14)
[2024-07-20] MEDS ORDERED: GLUCAGON 1 MG/VIAL IM PRN (01:19)
[2024-07-20] MEDS ORDERED: MORPHINE 2 MG/ML SYR IV PRN (01:19)
[2024-07-20] MEDS ORDERED: HYDROCODONE/APAP 5/325 MG TAB PO PRN (01:19)
--- NOTE | 2024-07-20 01:26 | P.HP ---
Certification for Inpatient Patient admitted to: Inpatient With expected LOS: >2 Midnights Practitioner: I am a practitioner with admitting privileges, knowledge of patient current condition, hospital course, and medical plan of care. Services: Services provided to patient in accordance with Admission requirements found in Title 42 Section 412.3 of the Code of Federal Regulations Patient History Date of Service: 07/20/24 Reason for admission: History of fall, chest pain History of Present Illness: 72-year-old female with past medical history hypertension, diabetes, [place]'s disease who was brought to ER after having a fall. Patient states that she was going to the restroom and felt dizzy and fell down. Associated with some vomiting. Denies any seizure-like activity. When the caregiver came to see her she was on the floor and they called 911 and then brought to ED the [facility] patient was complaining of some chest pain and shortness of breath. Patient was initially seen in [facility] and was transferred over here for further management as the patient was complaining of chest pain to rule out ACS and also was found to have hyponatremia and acute kidney injury. Allergies No Known Allergies Allergy (Unverified 01/16/22 01:51) Home medications list reviewed: Yes Home Medications: Acetaminophen [Tylenol] 2 tab PO BEDTIME 01/16/22 Allopurinol 100 mg PO DAILY 01/16/22 Aspirin [Rene Chewable Aspirin] 1 tab PO DAILY 01/16/22 Cyanocobalamin/Folic Acid [V21-Qrrkb Acid 2500-400 Mcg Tb] 1 tab PO DAILY 01/16/22 Docosahexanoic AC/Epa [Fish Oil 1,000 MG*] 1 cap PO DAILY 01/16/22 Ezetimibe 1 tab PO DAILY 01/16/22 Levothyroxine [Synthroid*] 1 tab PO DAILY 01/16/22 Lisinopril [Zestril] 2.5 mg PO DAILY 01/16/22 Metoprolol Tartrate [Lopressor*] 0.5 tab PO BID 01/16/22 Pravastatin [Pravachol*] 1 tab PO DAILY 01/16/22 - Past Medical/Surgical History Diabetic: Yes Past Medical History: Reviewed- Non-Contributory -: Diabetes mellitus type 2 -: Hypertension -: CKD -: Hypothyroidism Past Surgical History: Reviewed- Non-Contributory -: Cholecystectomy -: Wrist surgery Psychosocial/ Personal History: Patient lives at home, alone but has caregivers Thursday to Thursday until noon - Social History Smoking Status: Never smoker Alcohol use: No CD- Drugs: No Caffeine use: No Review of Systems 10-point ROS is otherwise unremarkable Physical Examination - Vital Signs Temperature: 96.9 F Blood Pressure: 136/63 Pulse: 79 Respirations: 18 Pulse Ox (%): 97 - Physical Exam General: Alert, In no apparent distress, Oriented x3 HEENT: Atraumatic, Normocephalic Neck: Supple, 2+ carotid pulse no bruit Respiratory: Clear to auscultation bilaterally, Normal air movement Cardiovascular: Normal pulses, Regular rate/rhythm, Normal S1 S2 Capillary refill: <2 Seconds Gastrointestinal: Soft and benign, W/out hepatosplenomegaly Musculoskeletal: No clubbing, No swelling Integumentary: No rashes, No breakdown Neurological: Normal speech, Normal strength at 5/5 x4 extr, Cranial nerves 3-12 intact, Normal reflexes 2+ Lymphatics: No axilla or inguinal lymphadenopathy Assessment and Plan - Plan Unstable angina Will trend cardiac enzymes Will monitor telemetry Started on aspirin and statin EKG did not show any acute changes suggestive of ischemia Will get an echocardiogram Cardiology consult Hyponatremia Started on IV hydration Monitor electrolytes and replace accordingly [place]'s disease Continue home medications and titrate as needed Hypertension Antihypertensives titrated Continue home medications and titrate as needed Hyperlipidemia Continue statin Acute kidney injury on CKD stage II Monitor renal parameters Electrolytes monitor and replace accordingly Diabetes Insulin sliding scale Accu-Chek before every meal and at bedtime GI/DVT prophylaxis Advanced directive full code Discharge Plan: Home Plan to discharge in: 48 Hours - Advance Directives Does patient have a Living Will: No Does patient have a Durable POA for Healthcare: No - Code Status/Comfort Care Code Status: Full Code Time Spent Managing Pts Care (In Minutes): 48
[2024-07-20] MEDS: NA CHLORIDE 0.9% 1,000 ML IV SCH (02:41)
[2024-07-20 05:16] VITALS: BMI 29.5
[2024-07-20 07:29] LABS: Absolute Lymphocytes (CBC) 0.8 K/uL (0.7-4.9); Absolute Monocytes 0.5 K/uL (0.1-1.3); Absolute Neutrophil 8.7 K/uL (1.8-8.0); Basophils % 0.3 % (0-1.3); Eosinophils % 0.1 % (0-4.4); Hematocrit 27.9 % (36.0-45.0); Hemoglobin 9.6 g/dL (12.0-15.0); Lymphocytes % 8.3 % (15.3-44.8); MCH 31.9 pg (27.0-35.0); MCHC 34.3 g/dL (32.0-36.0); MCV 93.2 fL (80-100); MPV 9.6 fL (7.6-11.3); Monocytes % 5.4 % (3.3-12.3); Neutrophils % 85.9 % (41.7-73.7); Platelets 224 thou/uL (152-406); RBC Red Blood Cell Count 2.99 M/uL (3.86-4.86); Red Cell Distribution Width 13.9 % (12.1-15.2)
[2024-07-20] MEDS: INSULIN REGULAR (HUMAN) 100 UNIT/ML SQ SCH (07:30)
[2024-07-20 07:46] LABS: Albumin 2.8 g/dL (3.4-5.0); Albumin/Globulin Ratio 0.9 (1.1-1.8); Anion Gap 18.5 mEq/L (5.0-15.0); Bilirubin Total 0.3 mg/dL (0.2-1.0); Magnesium 2.1 mg/dL (1.6-2.4); Phosphorus 5.3 mg/dL (2.5-4.9); Potassium 4.5 mEq/L (3.5-5.1); Protein, Total 5.8 g/dL (6.4-8.2); Troponin High Sensitivity 51.5 pg/mL (<58.9)
[2024-07-20] MEDS ORDERED: ENOXAPARIN 30 MG/0.3 ML SQ ONE ×2 (08:00→09:00)
[2024-07-20 08:52] LABS: Blood Morphology Comment NOT SEEN (NOT SEEN); Platelet Estimate ADEQ; Platelets Clumped FEW; White Blood Cell Scan OK (OK)
[2024-07-20] MEDS: HEPARIN 5000 UNIT/ML 1 ML VIAL SQ SCH (09:00)
--- NOTE | 2024-07-20 12:33 | P.CNS ---
Date of Consult: 07/20/24 Chief Complaint: History of fall, chest pain History of Present Illness: Patient with PMH of HTN, DM, presented with generalized body aches, weakness and chest pain, shart in nature, non radiating, has been going on for 1 week, no radiation, no other associated symptoms. Allergies No Known Allergies Allergy (Unverified 01/16/22 01:51) Home medications list reviewed: Yes Home Medications: Acetaminophen [Tylenol] 2 tab PO BEDTIME 01/16/22 Allopurinol 100 mg PO DAILY 01/16/22 Aspirin [Rene Chewable Aspirin] 1 tab PO DAILY 01/16/22 Cyanocobalamin/Folic Acid [Q09-Vrfnk Acid 2500-400 Mcg Tb] 1 tab PO DAILY 01/16/22 Docosahexanoic AC/Epa [Fish Oil 1,000 MG*] 1 cap PO DAILY 01/16/22 Ezetimibe 1 tab PO DAILY 01/16/22 Levothyroxine [Synthroid*] 1 tab PO DAILY 01/16/22 Lisinopril [Zestril] 2.5 mg PO DAILY 01/16/22 Metoprolol Tartrate [Lopressor*] 0.5 tab PO BID 01/16/22 Pravastatin [Pravachol*] 1 tab PO DAILY 01/16/22 - Past Medical/Surgical History Diabetic: Yes -: Diabetes mellitus type 2 -: Hypertension -: CKD -: Hypothyroidism -: Cholecystectomy -: Wrist surgery Psychosocial/ Personal History: Patient lives at home, alone but has caregivers Thursday to Thursday until noon - Social History Alcohol use: No CD- Drugs: No Caffeine use: No Review of Systems 10-point ROS is otherwise unremarkable Physical Examination Temp Pulse Resp BP Pulse Ox 98.6 F 80 22 H 122/58 L 96 07/20/24 08:00 07/20/24 08:00 07/20/24 08:00 07/20/24 08:00 07/20/24 08:00 General: Alert, In no apparent distress HEENT: Atraumatic, PERRLA, Mucous membr. moist/pink, EOMI, Sclerae nonicteric Neck: Supple, 2+ carotid pulse no bruit, No LAD, Without JVD or thyroid abnormality Respiratory: Clear to auscultation bilaterally, Normal air movement Cardiovascular: Regular rate/rhythm, Normal S1 S2 Gastrointestinal: Normal bowel sounds, No tenderness Musculoskeletal: No tenderness Integumentary: No rashes Neurological: Normal gait, Normal speech, Normal tone, Normal affect Lymphatics: No axilla or inguinal lymphadenopathy Laboratory Data (last 24 hrs) 07/20/24 07/20/24 07:11 07:11 WBC 10.10 Hgb 9.6 L Hct 27.9 L Plt Count 224 Sodium 132 L Potassium 4.5 BUN 72 H Creatinine 2.62 H Glucose 113 H Phosphorus 5.3 H Magnesium 2.1 Total Bilirubin 0.3 AST 56 H ALT 58 H Alkaline Phosphatase 154 H - Problems (1) Chest pain Current Visit: Yes Status: Acute Plan: Non cardiac, MSK, mid chest, reproducible on exam, enzymes are negative patient is scheduled for outpatient stress test in clinic no further cardiac work up needed. Cardiology will sign off. (2) HTN (hypertension) Current Visit: Yes Status: Acute Plan: continue to monitor and restart home medications (3) MERISSA (acute kidney injury) Current Visit: Yes Status: Acute Plan: gentle hydration
[2024-07-20] MEDS: PNEUMOCOCCAL VACCINE 0.5 ML IMVAC ONE (18:00)
[2024-07-21] MEDS: ACETAMINOPHEN 325 MG TABLET PO PRN (05:54)
[2024-07-21] MEDS ORDERED: PNEUMOCOCCAL VACCINE 0.5 ML IMVAC ONE (18:00)
[2024-07-22 02:17] LABS: Sqamous Epithelial <5 /HPF (None Seen); Urine Bacteria <20 /HPF (<20); Urine Bilirubin NEGATIVE (Negative); Urine Blood 1+ (Negative); Urine Clarity Turbid (Clear); Urine Color Colorless (Yellow); Urine Culture Reflex Order NOT NEEDED; Urine Glucose NEGATIVE (Negative); Urine Ketones NEGATIVE (Negative); Urine Microscopic Reflex YN ORDER UMIC; Urine Mucus Slight /HPF (None Seen); Urine Nitrite NEGATIVE (Negative); Urine Protein 1+ (Negative); Urine RBC <5 /HPF (None Seen); Urine Urobilinogen Normal (Normal); Urine WBC <5 /HPF (<5); Urine pH 5.5 (5.0-7.0)
--- NOTE | 2024-07-22 07:33 | P.DS ---
Admission Date: 07/19/24 Discharge Date: 07/23/24 Disposition: ROUTINE DISCHARGE Discharge Condition: GOOD Reason for Admission: History of fall, chest pain Brief History of Present Illness: 72-year-old female with past medical history hypertension, diabetes, Sullivan's disease who was brought to ER after having a fall. Patient states that she was going to the restroom and felt dizzy and fell down. Associated with some vomiting. Denies any seizure-like activity. When the caregiver came to see her she was on the floor and they called 911 and then brought to ED the [facility] patient was complaining of some chest pain and shortness of breath. Patient was initially seen in [facility] and was transferred over here for further management as the patient was complaining of chest pain to rule out ACS and also was found to have hyponatremia and acute kidney injury. Physical Exam General: Alert, In no apparent distress, Oriented x3 HEENT: Atraumatic, Normocephalic Neck: Supple, 2+ carotid pulse no bruit Respiratory: Clear to auscultation bilaterally, Normal air movement Cardiovascular: Normal pulses, Regular rate/rhythm, Normal S1 S2 Capillary refill: <2 Seconds Gastrointestinal: Soft and benign, W/out hepatosplenomegaly Musculoskeletal: No clubbing, No swelling Integumentary: No rashes, No breakdown Neurological: Normal speech, Normal strength at 5/5 x4 extr, Cranial nerves 3-12 intact, Normal reflexes 2+ Lymphatics: No axilla or inguinal lymphadenopathy Hospital Course: 72-year-old female with past medical history hypertension, diabetes, Sullivan's disease who was brought to ER after having a fall. Patient states that she was going to the restroom and felt dizzy and fell down. Associated with some vomiting. Denies any seizure-like activity. When the caregiver came to see her she was on the floor and they called 911 and then brought to ED the [facility] patient was complaining of some chest pain and shortness of breath. Patient was initially seen in [facility] and was transferred over here for further management as the patient was complaining of chest pain to rule out ACS and also was found to have hyponatremia and acute kidney injury. Chest pain Serial troponins negative Follow-up with cardiology after discharge Continue home medicines as previously prescribed GOAL: Clear understanding of disease process INSTRUCTIONS: Physician Discharge Instructions: -Follow-up with PCP in 1 to 2 weeks -Please call Dr. Spangler at [phone] if any questions regarding hospital stay -Please call nursing station at [phone] if any nursing or medication questions -Return to the emergency room if symptoms worsen Diet: ADA, low sodium Activity: Fall precautions Vital Signs/Physical Exam: Temp Pulse Resp BP Pulse Ox 96.9 F 80 17 140/68 97 07/22/24 04:00 07/22/24 04:00 07/22/24 04:00 07/22/24 04:00 07/22/24 04:00 Laboratory Data at Discharge: WBC 10.10 thou/uL (4.3-10.9) 07/20/24 07:11 Hgb 9.6 g/dL (12.0-15.0) L 07/20/24 07:11 Hct 27.9 % (36.0-45.0) L 07/20/24 07:11 Plt Count 224 thou/uL (152-406) 07/20/24 07:11 Sodium 132 mEq/L (136-145) L 07/20/24 07:11 Potassium 4.5 mEq/L (3.5-5.1) 07/20/24 07:11 BUN 72 mg/dL (7-18) H 07/20/24 07:11 Creatinine 2.62 mg/dL (0.55-1.02) H 07/20/24 07:11 Glucose 113 mg/dL (74-106) H 07/20/24 07:11 Phosphorus 5.3 mg/dL (2.5-4.9) H 07/20/24 07:11 Magnesium 2.1 mg/dL (1.6-2.4) 07/20/24 07:11 Total Bilirubin 0.3 mg/dL (0.2-1.0) 07/20/24 07:11 AST 56 U/L (15-37) H 07/20/24 07:11 ALT 58 U/L (13-56) H 07/20/24 07:11 Alkaline Phosphatase 154 U/L (45-117) H 07/20/24 07:11 Home Medications: Metoprolol Tartrate [Lopressor*] 1 tab PO BID 01/16/22 Allopurinol 100 mg PO DAILY 07/21/24 Ezetimibe 10 mg PO DAILY 07/21/24 Fludrocortisone [Florinef] 0.1 mg PO DAILY 07/21/24 Furosemide [Lasix] 20 mg PO DAILY 07/21/24 Hydralazine HCl 25 mg PO BID 07/21/24 Levothyroxine [Synthroid] 125 mcg PO [id number] 07/21/24 Lisinopril [Zestril] 20 mg PO DAILY 07/21/24 Pravastatin Sodium 40 mg PO BEDTIME 07/21/24 Diet: AHA Activity: Fall precautions Followup: Zully Patino NP [Primary Care Provider] - 1-2 Weeks Time spent managing pt's care (in minutes): 55
--- NOTE | 2024-07-23 07:54 | P.PN ---
Date of Service: 07/22/24 subjective Admitted with chest pain, nonradiating, n.p.o., evaluated by cardiology Review of Systems 10-point ROS is otherwise unremarkable Physical Examination - Vital Signs Reviewed - Physical Exam General: Alert, In no apparent distress, Oriented x3 HEENT: Atraumatic, Normocephalic Neck: Supple, 2+ carotid pulse no bruit Respiratory: Clear to auscultation bilaterally, Normal air movement Cardiovascular: Normal pulses, Regular rate/rhythm, Normal S1 S2 Capillary refill: <2 Seconds Gastrointestinal: Soft and benign, W/out hepatosplenomegaly Musculoskeletal: No clubbing, No swelling Integumentary: No rashes, No breakdown Neurological: Normal speech, Normal strength at 5/5 x4 extr, Cranial nerves 3-12 intact, Normal reflexes 2+ Lymphatics: No axilla or inguinal lymphadenopathy Assessment and Plan - Plan Unstable angina Will trend cardiac enzymes Will monitor telemetry Started on aspirin and statin EKG did not show any acute changes suggestive of ischemia Will get an echocardiogram Cardiology consult Hyponatremia Started on IV hydration Monitor electrolytes and replace accordingly 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 Hypertension Antihypertensives titrated Continue home medications and titrate as needed Hyperlipidemia Continue statin Acute kidney injury on CKD stage II Monitor renal parameters Electrolytes monitor and replace accordingly Diabetes Insulin sliding scale Accu-Chek before every meal and at bedtime GI/DVT prophylaxis Advanced directive full code Discharge Plan: Home Plan to discharge in: 48 Hours - Advance Directives Does patient have a Living Will: No Does patient have a Durable POA for Healthcare: No - Code Status/Comfort Care Code Status: Full Code Time Spent Managing Pts Care (In Minutes): 35 <Ashley Ricks - Last Filed: 07/23/24 15:22> Chart has been reviewed. Events of the last 24 hours have been noted. Case discussed with MAT. I performed a substantial part of the MDM during this patient's care today. I personally made or approved the documented management plan and acknowledge its risk of complications. I agree with the findings and documentation provided in the MAT's notes <Balbir Spangler - Last Filed: 08/11/24 02:50>
[2024-07-23 08:40] LABS: Absolute Eosinophils 0.4 K/uL (0-0.5); Absolute Lymphocytes (CBC) 1.1 K/uL (0.7-4.9); Absolute Monocytes 0.3 K/uL (0.1-1.3); Absolute Neutrophil 2.9 K/uL (1.8-8.0); Basophils % 0.7 % (0-1.3); Eosinophils % 9.1 % (0-4.4); Hematocrit 27.2 % (36.0-45.0); Hemoglobin 8.8 g/dL (12.0-15.0); Lymphocytes % 23.7 % (15.3-44.8); MCH 31.1 pg (27.0-35.0); MCHC 32.3 g/dL (32.0-36.0); MCV 96.4 fL (80-100); MPV 9.2 fL (7.6-11.3); Monocytes % 6.6 % (3.3-12.3); Neutrophils % 59.9 % (41.7-73.7); Platelets 216 thou/uL (152-406); RBC Red Blood Cell Count 2.82 M/uL (3.86-4.86); Red Cell Distribution Width 14.3 % (12.1-15.2)
[2024-07-23 08:52] LABS: Albumin 2.5 g/dL (3.4-5.0); Anion Gap 9.2 mEq/L (5.0-15.0); Phosphorus 4.1 mg/dL (2.5-4.9); Potassium 4.2 mEq/L (3.5-5.1)
[2024-07-24 09:55] LABS: Absolute Basophils 0.1 K/uL (0-0.5); Absolute Eosinophils 0.4 K/uL (0-0.5); Absolute Lymphocytes (CBC) 1.1 K/uL (0.7-4.9); Absolute Monocytes 0.3 K/uL (0.1-1.3); Absolute Neutrophil 3.1 K/uL (1.8-8.0); Basophils % 2.1 % (0-1.3); Eosinophils % 8.1 % (0-4.4); Hematocrit 28.2 % (36.0-45.0); Hemoglobin 9.2 g/dL (12.0-15.0); MCH 30.9 pg (27.0-35.0); MCHC 32.5 g/dL (32.0-36.0); MPV 8.6 fL (7.6-11.3); Monocytes % 6.6 % (3.3-12.3); Neutrophils % 61.2 % (41.7-73.7); Platelets 236 thou/uL (152-406); RBC Red Blood Cell Count 2.97 M/uL (3.86-4.86); Red Cell Distribution Width 14.6 % (12.1-15.2)
[2024-07-24 10:06] LABS: Albumin 2.7 g/dL (3.4-5.0); Anion Gap 9.6 mEq/L (5.0-15.0); Potassium 4.6 mEq/L (3.5-5.1)
[2024-07-24] MEDS: HYDRALAZINE HCL 25 MG TABLET PO SCH ×2 (11:00→11:06)
[2024-07-24] MEDS: METOPROLOL TAR 25 MG TAB PO SCH (11:06)
[2024-07-24] MEDS: FUROSEMIDE 20 MG TABLET PO SCH (11:06)
[2024-07-24] MEDS: METOPROLOL TARTRATE 5 MG/5 ML INJ IV PRN (12:20)
[2024-07-24] MEDS: HYDRALAZINE HCL 20 MG/ML VIAL IV ONE ×2 (13:41→13:48)
[2024-07-24] MEDS: lisinopriL 20 MG TAB PO SCH (14:35)
[2024-07-24 16:18] VITALS: O2SAT 97
[2024-07-24 16:24] VITALS: BP 153/72; TEMP 97.1
[2024-07-24] MEDS ORDERED: HYDRALAZINE HCL 25 MG TABLET PO SCH (21:00)
[2024-07-24] MEDS ORDERED: ATORVASTATIN 10 MG TAB PO SCH (21:00)
[2024-07-24] MEDS ORDERED: METOPROLOL TAR 25 MG TAB PO SCH (21:00)
[2024-07-25] MEDS ORDERED: LEVOTHYROXINE SOD 0.125 MG TAB PO SCH (06:00)
[2024-07-25] MEDS ORDERED: lisinopriL 20 MG TAB PO SCH (09:00)
[2024-07-25] MEDS ORDERED: FUROSEMIDE 20 MG TABLET PO SCH (09:00)
[2024-07-25] MEDS ORDERED: allopurinoL 100 MG TAB PO SCH (09:00)
[2024-07-25] MEDS ORDERED: EZETIMIBE 10 MG TAB PO SCH (09:00)
[2024-07-25] MEDS ORDERED: FLUDROCORTISONE 0.1 MG TAB PO SCH (09:00)
--- NOTE | 2024-08-11 02:50 | P.PN ---
Date of Service: 07/21/24 Subjective Patient is clinically doing well. Patient's chest pain has improved. Patient denies any new complaints. Physical Examination - Vital Signs Reviewed - Physical Exam General: Alert, In no apparent distress, Oriented x3 Respiratory: Clear to auscultation bilaterally, Normal air movement Cardiovascular: Normal pulses, Regular rate/rhythm, Normal S1 S2 Gastrointestinal: Soft and benign, W/out hepatosplenomegaly Musculoskeletal: No clubbing, No swelling Integumentary: No rashes, No breakdown Neurological: Normal speech, Normal strength at 5/5 x4 extr, Cranial nerves 3-12 intact, Normal reflexes 2+ Assessment and Plan - Assessment/Plan -Unstable angina Will trend cardiac enzymes Will monitor telemetry Started on aspirin and statin EKG did not show any acute changes suggestive of ischemia Will get an echocardiogram Cardiology consult -Hyponatremia Started on IV hydration Monitor electrolytes and replace accordingly -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 -Hypertension Antihypertensives titrated Continue home medications and titrate as needed -Hyperlipidemia Continue statin -Acute kidney injury on CKD stage II Monitor renal parameters Electrolytes monitor and replace accordingly -Diabetes Insulin sliding scale Accu-Chek before every meal and at bedtime GI/DVT prophylaxis Advanced directive full code Discharge Plan: Home Plan to discharge in: 48 Hours - Advance Directives Does patient have a Living Will: No Does patient have a Durable POA for Healthcare: No - Code Status/Comfort Care Code Status: Full Code Time Spent Managing Pts Care (In Minutes): 48
--- NOTE | 2024-08-11 02:53 | P.PN ---
Date of Service: 07/23/24 Subjective Patient is clinically doing well and patient denies any new complaints. Clinical symptoms are improving. Physical Examination - Vital Signs Reviewed - Physical Exam General: Alert, In no apparent distress, Oriented x3 Respiratory: Clear to auscultation bilaterally, Normal air movement Cardiovascular: Normal pulses, Regular rate/rhythm, Normal S1 S2 Gastrointestinal: Soft and benign, W/out hepatosplenomegaly Musculoskeletal: No clubbing, No swelling Integumentary: No rashes, No breakdown Neurological: No focal deficits Assessment and Plan - Assessment/Plan Continue with plan of care as mentioned below: -Unstable angina Will monitor telemetry Started on aspirin and statin EKG did not show any acute changes suggestive of ischemia Will get an echocardiogram Cardiology consult appreciated -Hyponatremia Started on IV hydration Monitor electrolytes and replace accordingly -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 -Hypertension Antihypertensives titrated Continue home medications and titrate as needed -Hyperlipidemia Continue statin -Acute kidney injury on CKD stage II Monitor renal parameters Electrolytes monitor and replace accordingly -Diabetes Insulin sliding scale Accu-Chek before every meal and at bedtime GI/DVT prophylaxis Advanced directive full code Discharge Plan: Home Plan to discharge in: 48 Hours - Advance Directives Does patient have a Living Will: No Does patient have a Durable POA for Healthcare: No - Code Status/Comfort Care Code Status: Full Code Time Spent Managing Pts Care (In Minutes): 35
--- NOTE | 2024-08-11 02:55 | P.DS ---
Discharge Date: 07/24/24 Disposition: [place] HOME/HOME HEALTH CARE Discharge Condition: GOOD Reason for Admission: History of fall, chest pain Brief History of Present Illness: 74-year-old female with past medical history hypertension, diabetes, [place]'s disease who was brought to ER after having a fall. Patient states that she was going to the restroom and felt dizzy and fell down. Associated with some vomiting. Denies any seizure-like activity. When the caregiver came to see her she was on the floor and they called 911 and then brought to ED the [facility] patient was complaining of some chest pain and shortness of breath. Patient was initially seen in [facility] and was transferred over here for further management as the patient was complaining of chest pain to rule out ACS and also was found to have hyponatremia and acute kidney injury. Hospital Course: Patient was hydrated and sodium level has improved. Patient's clinical symptoms are much better. Patient denies any new complaints. Patient's cardiac status is stable. At this time, patient will be discharged with outpatient follow-up. Vital Signs/Physical Exam: Temp Pulse Resp BP Pulse Ox 97.1 F 76 16 153/72 H 97 07/24/24 16:00 07/24/24 16:00 07/24/24 16:00 07/24/24 16:00 07/24/24 16:00 General: Alert, In no apparent distress, Oriented x3 Laboratory Data at Discharge: WBC 5.10 thou/uL (4.3-10.9) 07/24/24 09:33 Hgb 9.2 g/dL (12.0-15.0) L 07/24/24 09:33 Hct 28.2 % (36.0-45.0) L 07/24/24 09:33 Plt Count 236 thou/uL (152-406) 07/24/24 09:33 Sodium 139 mEq/L (136-145) 07/24/24 09:33 Potassium 4.6 mEq/L (3.5-5.1) 07/24/24 09:33 BUN 40 mg/dL (7-18) H 07/24/24 09:33 Creatinine 1.99 mg/dL (0.55-1.02) H 07/24/24 09:33 Glucose 79 mg/dL (74-106) 07/24/24 09:33 Phosphorus 4.0 mg/dL (2.5-4.9) 07/24/24 09:33 Magnesium 2.1 mg/dL (1.6-2.4) 07/20/24 07:11 Total Bilirubin 0.3 mg/dL (0.2-1.0) 07/20/24 07:11 AST 56 U/L (15-37) H 07/20/24 07:11 ALT 58 U/L (13-56) H 07/20/24 07:11 Alkaline Phosphatase 154 U/L (45-117) H 07/20/24 07:11 Home Medications: Metoprolol Tartrate [Lopressor*] 1 tab PO BID 01/16/22 Allopurinol 100 mg PO DAILY 07/21/24 Ezetimibe 10 mg PO DAILY 07/21/24 Fludrocortisone [Florinef *] 0.1 mg PO DAILY 07/21/24 Furosemide [Lasix*] 20 mg PO DAILY 07/21/24 Hydralazine HCl 25 mg PO BID 07/21/24 Levothyroxine [Synthroid*] 125 mcg PO [id number] 07/21/24 Lisinopril [Zestril] 20 mg PO DAILY 07/21/24 Pravastatin Sodium 40 mg PO BEDTIME 07/21/24 Hydrocortisone [Cortef*] 10 mg PO BID #90 tab 07/23/24 New Medications: Hydrocortisone [Cortef*] 10 mg PO BID #90 tab Physician Discharge Instructions: -DC IV and DC home -Follow-up with PCP in 1 to 2 weeks -Follow-up with Cardiology in 1 to 2 weeks -Please call Dr. Spangler at [phone] if any questions regarding hospital stay -Please call nursing station at [phone] if any nursing or medication questions -Return to the emergency room if symptoms worsen Diet: AHA Activity: Fall precautions Followup: Zully Patino NP [Primary Care Provider] - 1-2 Weeks Time spent managing pt's care (in minutes): 35
== END 2024-07-24 17:00 | disposition home health service (06) | DRG 683 ==
LOC: 4TH 22:02
PROVIDERS: ADMIT Hospitalist; ATTEND Hospitalist
DX: N17.9 Acute kidney failure, unspecified (principal); E27.1 Primary adrenocortical insufficiency; E87.1 Hypo-osmolality and hyponatremia; I25.110 Atherosclerotic heart disease of native coronary artery with unstable angina pectoris; E03.9 Hypothyroidism, unspecified; I12.9 Hypertensive chronic kidney disease with stage 1 through stage 4 chronic kidney disease, or unspecified chronic kidney disease; N18.2 Chronic kidney disease, stage 2 (mild); E11.22 Type 2 diabetes mellitus with diabetic chronic kidney disease; E78.5 Hyperlipidemia, unspecified; Z60.2 Problems related to living alone; Z79.82 Long term (current) use of aspirin; Z90.49 Acquired absence of other specified parts of digestive tract; Z79.890 Hormone replacement therapy; Z79.899 Other long term (current) drug therapy
CPT/HCPCS: 36415; 80053; 80069; 81001; 82947; 83735; 84100; 84484; 85025; 94760; 97116; 97161; J0360; J1644; J7030

== ENCOUNTER 2024-11-03 14:56 | Inpatient (IN) | payer OTHER ==
--- OUTSIDE RECORDS SUMMARY | 2024-11-03 14:58 | XMS REPORT | Continuity of Care Document ---
Author Name Unknown Address [address] [facility] [place] [address] [facility] Address [address] [facility] [place] [address] Care Team Providers Care [place] Gauger Name Role Phone SOFI NIÑO Primary Care Physician Unavaila LORAINE Cunningham Attending Clinician Unavailable MIGUEL SHAY Attending Clinician Unavailable MIGUEL SHAY Attending Clinician Unavailable Doctor Unassigned, [place] Attending Clinician U Loraine Luong MD Attending Clinician RADIOLOGY Attending Clinician Unavailable Radiology Attending Clinician Unavailable Vaishali Kahn MD Attending Clinician [phone] Meena Ramirez Attending Clinician [phone] MEENA RAJPUT Attending Clinician Unavailable VAISHALI KAHN Attending Clinician UnavailYOLANDA Sheikh Admitting Clinician Unavailable Payers Payer Name Policy Type Policy Number Effective Date Expirati on Date Source [facility] [id number] 2020 00:00:00 MEDICAID [facility] [id number] 2016 00:00:00 MEDICARE PART A \T\ B [id number] 2016 00:00:00 Problems Condition Name Condition Details Condition Category Status Onset Date Resolution Date Last Treatment Date Treating Clinician Comments Source Morbid obesity with body mass index of 40.0-49.9 Morbid obesity with body mass index of 40.0-49.9 Disease Active 06-25 00:00: 00 [facility] Chest pain Chest pain Disease Active 06-25 00:00: 00 [facility] Morbid obesity with body mass index of 50 or higher Morbid obesity with body mass index of 50 or higher Disease Active 06-25 00:00: 00 [facility] Cholangiti s Cholangiti s Disease Active 06-25 00:00: 00 [facility] Obesity Obesity Disease Active 08-26 00:00: 00 [facility] Pleural effusion Pleural effusion Disease Active 08-22 00:00: 00 [facility] Gait abnormalit y Gait abnormalit y Disease Active 07-11 00:00: 00 [facility] Choledocho lithiasis Choledocho lithiasis Disease Active 07-07 00:00: 00 [facility] 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 Disease Active 07-07 00:00: 00 [facility] Abnormal LFTs (liver function tests) Abnormal LFTs (liver function tests) Disease Active 07-07 00:00: 00 [facility] Hyperbilir ubinemia Hyperbilir ubinemia Disease Active 07-07 00:00: 00 [facility] Cholelithi asis Cholelithi asis Disease Active 07-04 00:00: 00 [facility] Hypertensi on Hypertensi on Disease Recurre nce 07-04 00:00: 00 [facility] HLD (hyperlipi demia) HLD (hyperlipi demia) Disease Active 2008-11 00:00: 00 Overview: Formattin g of this note might be different from the original. ICD10 Diagnosis Term [employer] [facility] Diabetes mellitus type 2, uncontroll ed, without complicati ons Diabetes mellitus type 2, uncontroll ed, without complicati ons Disease Active 2008-11 00:00: 00 Overview: Formattin g of this note might be different from the original. 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 Retinopat hy cloudicat ion [facility] Allergies, Adverse Reactions, Alerts Allergy Name Allergy Type Status Severity Reaction(s) Onset Date Inactive Date Treating Clinician Comments Source No Known Allergie s DA Active U 06-18 00:00: 00 [facility] NO KNOWN ALLERGIE S Drug Class Active [facility] Social History Social Habit Start Date Stop Date Quantity Comments Source Exposure to SARS-CoV-2 (event) 2022-12-06 00:00:00 2022-12-16 10:53:00 Not sure [facility] Alcohol intake 2022-03-14 00:00:00 2022-03-14 00:00:00 0 /d [facility] Cigarettes smoked current (pack per day) - Reported 2017-06-25 00:00:00 2017-06-25 00:00:00 [facility] Cigarette pack-years 2017-06-25 00:00:00 2017-06-25 00:00:00 [facility] Tobacco use and exposure 2017-06-25 00:00:00 2017-06-25 00:00:00 Smokeless tobacco non-user [facility] History of tobacco use 1997-11-30 00:00:00 Cigarette Smoker [facility] Sex Assigned At 1950 00:00:00 1950 00:00:00 [facility] Smoking Status Start Date Stop Date Source Ex-smoker 2017-06-25 00:00:00 2017-06-25 [facility] Ordered Medication Name Filled Medication Name Start Date Stop Date Current Medication? Ordering Clinician Indication Dosage Frequency Signature (SIG) Comments Components Source DICLOFENAC 75 mg EC tablet 01-03 00:00: 00 Yes [id number] TAKE 1 TABLET BY MOUTH TWICE DAILY WITH MEALS [facility] metoprolol succinate XL (TOPROL XL) 25 mg 24 hr tablet 07-03 18:17: 42 Yes 25mg Take 25 mg by mouth 2 (two) times daily. Indication s: Take 1/2 tab two times daily [facility] PYRIDOXINE HCL, VITAMIN B6, (VITAMIN B-6 ORAL) 07-03 18:17: 42 Yes 100mg Take 100 mg by mouth daily. [facility] FOLIC ACID ORAL 07-03 18:17: 42 Yes 400ug Take 400 mcg by mouth daily. [facility] CYANOCOBALA MIN, VITAMIN B-12, (VITAMIN B12 ORAL) 07-03 18:17: 42 Yes 2000ug Take 2,000 mcg by mouth daily. [facility] traMADOL 50 mg tablet 07-03 18:17: 42 Yes 50mg Take 50 mg by mouth daily. [facility] Highland-3-DHA -EPA-Fish Oil (FISH OIL) 1,000 mg (120 mg-180 mg) Cap 07-03 18:17: 42 Yes 1000mg Take 1,000 mg by mouth daily. [facility] furosemide 20 mg tablet 07-03 18:17: 42 Yes 20mg Take 20 mg by mouth daily. [facility] amLODIPine 5 mg tablet 07-03 00:00: 00 Yes 10mg Take 2 tablets by mouth daily. [facility] glyBURIDE (DIABETA) 5 mg tablet 12-19 00:00: 00 Yes [facility] levothyroxi ne (SYNTHROID) 125 mcg tablet 05-10 00:00: 00 Yes 125ug Take 1 Tab by mouth daily. [facility] PRAVASTATIN 80 MG ORAL TAB 2008-11 00:00: 00 Yes 1 tab PO QHS [facility] Procedures Procedure Date / Time Performed Performing Clinicia n Source REFERRAL- REQUEST/RESPONSE 2023-01-15 06:01:00 Doctor Unassigned, [place] [facility] US ABDOMEN LIMITED 2022-12-19 19:37:21 Requisition, [place] per [facility] CONSENT/REFUSAL FOR DIAGNOSIS AND TREATMENT 2022-12-19 18:39:38 Doctor Unassigned, [place] [facility] ASSIGNMENT OF BENEFITS 2022-12-19 18:38:51 Docto r Unassigned, [place] [facility] REFERRAL- REQUEST/RESPONSE 2022-05-29 05:01:00 Doctor Unassigned, [place] [facility] EXTERNAL PROVIDER RECORDS 2022-05-09 05:01:00 Doctor Unassigned, [place] [facility] Encounters Start Date/Time End Date/Time Encounter Type Admission Type Attending [facility] Facility Care Department Encounter ID Source 2024-03-29 09:30:00 2024-03-29 09:30:00 Outpatient R LORAINE STILES [facility] [id number] [facility] 2023-12-30 13:30:00 2023-12-30 13:30:00 Outpatient R MIGUEL SHAY YU [facility] [id number] [facility] 2023-10-28 09:30:00 2023-10-28 09:30:00 Outpatient R MIGUEL SHAY YU [facility] [id number] [facility] 2023-01-15 00:00:00 2023-01-15 00:00:00 Orders Only Doctor Unassigned, [place] [facility] 1.2.840.114 350.1.13.10 4.2.7.2.686 [id number] [id number] [facility] 2023-01-02 00:00:00 2023-01-02 00:00:00 Telephone Loraine Stiles [facility] 1.2.840.114 350.1.13.10 4.2.7.2.686 [id number] [facility] 2022-12-19 12:40:45 2022-12-19 23:59:00 Outpatient R RADIOLOGY [facility] [id number] [facility] 2022-12-19 12:40:45 2022-12-19 23:59:00 Hospital Encounter Radiology [facility] 1.2.840.114 350.1.13.10 4.2.7.2.686 [id number] [facility] 2022-05-29 00:00:00 2022-05-29 00:00:00 Orders Only Doctor Unassigned, [place] [facility] 1.2840.114 350.1.13.10 4.2.7.2.686 [id number] [id number] [facility] 2022-05-28 00:00:00 2022-05-28 00:00:00 Telephone KahnVaishali [facility] 1..114 350.1.13.10 4.2.7.2.686 [id number] [facility] 2022-05-28 00:00:00 2022-05-28 00:00:00 Telephone Atiya [facility] CODY?[facility] 1..114 350.1.13.10 4.2.7.2.686 [id number] [facility] 2022-05-22 00:00:00 2022-05-22 00:00:00 Telephone Atiya [facility] 1.84.114 350.1.13.10 4.2.7.2.686 [id number] [facility] 2022-05-09 00:00:00 2022-05-09 00:00:00 Orders Only Doctor Unassigned, [place] [facility] 1.2.114 350.1.13.10 4.2.7.2.686 [id number] [facility] 2022-04-14 00:00:00 2022-04-14 00:00:00 Telephone Rajput [facility] 1..114 350.1.13.10 4.2.7.2.686 [id number] [facility] 2022-04-09 00:00:00 2022-04-09 00:00:00 Telephone [facility]ena [facility] 1.2.840.114 350.1.13.10 4.2.7.2.686 [id number] [facility] 2022-03-24 00:00:00 2022-03-24 00:00:00 Telephone Vaishali Kahn [facility] 1.2.840.114 350.1.13.10 4.2.7.2.686 [id number] [facility] 2022-03-24 00:00:00 2022-03-24 00:00:00 Telephone [facility] 1.2.840.114 350.1.13.10 4.2.7.2.686 [id number] [facility] 2022-03-19 00:00:00 2022-03-19 00:00:00 Telephone Meena Rajput [facility] 1.2.840.114 350.1.13.10 4.2.7.2.686 [id number] [facility] 2022-03-19 00:00:00 2022-03-19 00:00:00 Telephone Atiya [facility] 1.2.840.114 350.1.13.10 4.2.7.2.686 [id number] [facility] 2022-03-14 08:05:00 2022-03-14 23:59:00 Outpatient R MEENA RAJPUT [facility] [id number] [facility] 2022-03-14 08:00:00 2022-03-14 08:15:00 Office Visit Meena Rajput [facility] 1.840.114 350.1.13.10 4.2.7.2.686 [id number] [facility] 2022-03-14 08:00:00 2022-03-14 08:00:00 Outpatient Seun RAJPUT [facility] [id number] [facility] 2022-03-10 00:00:00 2022-03-10 00:00:00 Orders Only Doctor Unassigned, [place] [facility] 1.840.114 350.1.13.10 4.2.7.2.686 [id number] [facility] 2022-02-07 09:14:53 2022-02-07 23:59:00 Outpatient Seun RAJPUT [facility] [id number] [facility] 2022-02-07 09:15:00 2022-02-07 09:45:00 Office Visit Atiya [facility] 1.840.114 350..13.10 4.2.7.2.686 [id number] [facility] 2022-02-07 09:15:00 2022-02-07 09:15:00 Outpatient Seun RAJPUT [facility] [id number] [facility] 2021-12-09 00:00:00 2021-12-09 00:00:00 Orders Only Doctor Unassigned, [place] [facility] 1.840.114 350.1.13.10 4.2.7.2.686 [id number] [facility] 2021-09-10 00:00:00 2021-09-10 00:00:00 Letter (Out) Vaishali Kahn [facility] 1.840.114 350.1.13.10 4.2.7.2.686 [id number] [facility] 2021-09-09 14:30:00 2021-09-09 14:30:00 Outpatient R VAISHALI KAHN [facility] [id number] [facility] 2021-09-09 13:44:03 2021-09-09 14:12:31 Office Visit Vaishali Kahn [facility] 1.2.840.114 350.1.13.10 4.2.7.2.686 [id number] [facility] 2021-05-09 09:15:00 2021-05-09 09:15:00 Outpatient Seun RAJPUT [facility] [id number] [facility] 2021-05-09 08:44:54 2021-05-09 09:01:30 [facility] 1.2.840.114 350.1.13.10 4.2.7.2.686 [id number] [facility] 2021-05-02 08:47:36 2021-05-02 09:22:49 [facility] 1.2.840.114 350.1.13.10 4.2.7.2.686 [id number] [facility] 2021-05-02 09:00:00 2021-05-02 09:00:00 Outpatient R ATIYA [facility] [id number] [facility] 2021-04-25 08:40:03 2021-04-25 09:12:05 [facility] 1.2.840.114 350.1.13.10 4.2.7.2.686 [id number] [facility] 2021-04-25 09:00:00 2021-04-25 09:00:00 Outpatient Seun HUNTER RAJPUTTT [facility] [id number] [facility] 2021-04-23 09:00:00 2021-04-23 09:00:00 Outpatient Seun RAJPUT MEENA [facility] [id number] [facility] 2021-04-08 00:00:00 2021-04-08 00:00:00 Orders Only Doctor Unassigned, [place] [facility] 1.2.840.114 350.1.13.10 4.2.7.2.686 [id number] [facility] 2021-04-03 00:00:00 2021-04-03 00:00:00 Telephone Vaishali Kahn [facility] [place] 1.2.840.114 350.1.13.10 4.2.7.2.686 [id number] [facility] 2021-03-21 09:55:53 2021-03-21 23:59:00 Hospital Encounter Vaishali Kahn [facility] [place] 1.2.840.114 350.1.13.10 4.2.7.2.686 [id number] [facility] 2021-03-21 09:32:32 2021-03-21 10:08:15 Office Visit Vaishali Kahn [facility] [place] 1.2.840.114 350.1.13.10 4.2.7.2.686 [id number] [facility] 2021-03-21 10:00:00 2021-03-21 10:00:00 Outpatient R VAISHALI KAHN [facility] [id number] [facility] 2020-01-30 13:49:25 2020-01-30 14:04:25 Office Visit Vaishali Kahn [facility] [place] 1.2.840.114 350.1.13.10 4.2.7.2.686 [id number] 2020-01-30 13:49:25 2020-01-30 14:04:25 Office Visit Vaishali Kahn [facility] br[facility] 1.2.840.114 350.1.13.10 4.2.7.2.686 [id number] [facility] 2020-01-30 13:45:00 2020-01-30 13:45:00 Outpatient R VAISHALI KAHN [facility] [id number] [facility] 2020-01-30 00:00:00 2020-01-30 00:00:00 Orders Only Doctor Unassigned, [place] [facility] 1.2.840.114 350.1.13.10 4.2.7.2.686 [id number] [id number] [facility]
[2024-11-03] MEDS ORDERED: POTASSIUM 25 MEQ EFFERV TAB ONE (17:13)
[2024-11-03] MEDS ORDERED: KCL 20 MEQ/100 mL IVPB 100 ML IV ONE ×2 (17:14→19:16)
[2024-11-03 17:15] LABS: Absolute Basophils 0.1 K/uL (0-0.5); Absolute Eosinophils 0.1 K/uL (0-0.5); Absolute Lymphocytes (CBC) 1.9 K/uL (0.7-4.9); Absolute Monocytes 0.7 K/uL (0.1-1.3); Basophils % 0.5 % (0-1.3); Hematocrit 31.5 % (36.0-45.0); Hemoglobin 10.5 g/dL (12.0-15.0); Lymphocytes % 19.6 % (15.3-44.8); MCH 30.6 pg (27.0-35.0); MCHC 33.3 g/dL (32.0-36.0); MCV 91.9 fL (80-100); MPV 10.7 fL (7.6-11.3); Monocytes % 7.3 % (3.3-12.3); Neutrophils % 71.6 % (41.7-73.7); Platelets 193 thou/uL (152-406); RBC Red Blood Cell Count 3.42 M/uL (3.86-4.86); Red Cell Distribution Width 12.9 % (12.1-15.2)
[2024-11-03] MEDS ORDERED: NA CHLORIDE 0.9% 250 ML ONE ×2 (17:20→19:15)
[2024-11-03 17:35] LABS: Anion Gap 12.8 mEq/L (5.0-15.0); Phosphorus 5.4 mg/dL (2.5-4.9)
[2024-11-03 17:37] LABS: Potassium 1.8 mEq/L (3.5-5.1)
--- NOTE | 2024-11-03 18:08 | EDPHYS ---
Physician Documentation [facility] Name: Prema Soares Age: 74 yrs Sex: Female : 1950 Arrival Date: 11/03/2024 Time: 14:56 Bed 17 Private MD: ED Physician Mario Glez HPI: 11/03 15:36 This 74 yrs old Female presents to ER via Ambulatory with complaints of Abnormal Lab sb4 Results. 15:36 patient states she had routine blood work done yesterday, was called by her sb4 director of medicare with the results today and told to come to the ED for low potassium. patient reports feeling weak and dizzy. she denies a history of low potassium. reports history of CKD. states that she is on daily lasix. Historical: - Allergies: 15:18 No Known Allergies; ko1 - PMHx: 15:18 Hypertensive disorder; Diabetes mellitus; Hypercholesterolemia; ko1 15:24 Hypothyroidism; ko1 - PSHx: 15:18 Cholecystectomy; ko1 - Immunization history:: Adult Immunizations unknown. - Infectious Disease History:: Denies. - Social history:: Smoking status: Patient denies any tobacco usage or history of. ROS: 15:36 Constitutional: Negative for fever, chills, and weight loss, sb4 15:36 Neuro: Positive for dizziness, weakness, 15:36 All other systems are negative, Exam: 15:36 Head/Face: Normocephalic, atraumatic. Eyes: Extra-ocular motions intact. Periorbital sb4 areas with no swelling, redness, or edema. ENT: Mucous membranes moist. Cardiovascular: Regular rate and rhythm with a normal S1 and S2. Respiratory: No increased work of breathing, no retractions or nasal flaring. Abdomen/GI: Soft, non-tender, no distension. Skin: Warm, dry with normal turgor. Normal color with no rashes, no lesions, and no evidence of cellulitis. 15:36 Constitutional: The patient appears in no acute distress, alert, awake, pale, Vital Signs: 15:15 BP 190 / 79; Pulse 74; Resp 16; Temp 97.1; Pulse Ox 100% ; ko1 19:00 BP 187 / 83; Pulse 61; Resp 18; Temp 97.4; Pulse Ox 100% on R/A; db 20:00 BP 170 / 74; Pulse 68; Resp 18; Pulse Ox 100% ; kj2 21:10 BP 197 / 72; Pulse 69; Resp 18; Pulse Ox 100% ; kj2 21:42 BP 157 / 90; Pulse 79; Resp 18; Pulse Ox 100% on R/A; kj2 21:58 BP 168 / 71; Pulse 87; Resp 18; Pulse Ox 100% on R/A; kj2 MDM: 15:26 Medical Screening Exam initiated sb4 15:37 External Records Reviewed: Outpatient labs: outpatient labs from this morning at 1000- sb4 potassium 1.9, cr 2.23, BUN 36, GFR 23, phos 5.3. 18:06 Data reviewed: vital signs, nurses notes, lab test result(s), EKG, radiologic studies, sb4 and as a result, I will admit patient. Consideration of Admission/Observation Patient was admitted/placed on observation. Management of patient was discussed with the following: Loan Funder: Dr. Howell, recommended admission, gave potassium repletment instructions and requested further labs. Counseling: I had a detailed discussion with the patient and/or guardian regarding the historical points, exam findings, and any diagnostic results supporting the discharge/admit diagnosis, lab results, radiology results, the need for further work-up and treatment in the hospital. 11/03 15:30 Order name: Basic Metabolic Panel; Complete Time: 17:38 sb4 11/03 15:30 Order name: CBC with Diff; Complete Time: 17:19 sb4 11/03 15:30 Order name: Magnesium; Complete Time: 17:38 sb4 11/03 15:30 Order name: Troponin HS; Complete Time: 17:38 sb4 11/03 15:30 Order name: Phosphorus; Complete Time: 17:38 sb4 11/03 18:04 Order name: Uric Acid; Complete Time: 20:04 sb4 11/03 18:04 Order name: CK; Complete Time: 20:04 sb4 11/03 18:04 Order name: TSH; Complete Time: 20:04 sb4 11/03 18:04 Order name: Cortisol; Complete Time: 20:25 sb4 11/03 18:04 Order name: Urine Osmolality sb4 11/03 18:04 Order name: Urine Sodium Random sb4 11/03 18:04 Order name: Urine Potassium Random sb4 11/03 18:27 Order name: Urinalysis w/ reflexes EDMS 11/03 18:27 Order name: CBC with Automated Diff EDMS 11/03 18:27 Order name: CBC with Automated Diff EDMS 11/03 18:27 Order name: Comprehensive Metabolic Panel EDMS 11/03 18:27 Order name: Comprehensive Metabolic Panel EDMS 11/03 18:04 Order name: US Rp Exam Complete sb4 11/03 20:40 Order name: US; Complete Time: 20:41 EDMS 11/03 15:30 Order name: EKG; Complete Time: 15:30 sb4 11/03 15:30 Order name: Cardiac monitoring; Complete Time: 16:55 sb4 11/03 15:30 Order name: EKG - Nurse/Tech; Complete Time: 16:55 sb4 11/03 15:30 Order name: IV Saline Lock; Complete Time: 17:07 sb4 11/03 15:30 Order name: Labs collected and sent; Complete Time: 17:07 sb4 EC:00 Rate is 64 beats/min. Rhythm is regular, Normal Sinus Rhythm with Right bundle branch sb4 block. MO interval is normal at 166 msec. QRS interval is normal at 122 msec. QT interval is normal. No Q waves. Clinical impression: No evidence of ischemia. Interpreted by me. Reviewed by me. Administered Medications: 17:18 Drug: Potassium Chloride IV 20 mEq IV at calculated rate once; administer over 1-2 db hours Route: IV; Rate: calculated rate; Site: left antecubital; 17:20 Drug: Potassium PO Effervescent Tablet 50 mEq PO once; dissolve in 4 ounces of water or db juice Route: PO; 22:25 Follow up: Response: No adverse reaction kj2 19:37 Drug: Potassium Chloride IV 20 mEq IV at calculated rate once; administer over 1-2 kj2 hours Route: IV; Rate: calculated rate; Site: left forearm; 21:37 Follow up: Response: No adverse reaction; IV Status: Completed infusion; IV Intake: kj2 100ml Disposition Summary: 11/03/24 18:08 Hospitalization Ordered Notes: Hospitalization Status: Inpatient Admission sb4 Provider: Bernabe Neves4 Location: Telemetry/MedSur (Inpatient) sb4 Condition: Fair sb4 Problem: new sb4 Symptoms: are unchanged sb4 Bed/Room Type: Standard sb4 Room Assignment: 208(12/05/24 18:55) sp Diagnosis - Hypokalemia sb4 - Elevated troponin sb4 - Acute kidney failure, unspecified sb4 Forms: - Medication Reconciliation Form sb4 - SBAR form sb4 - Leadership Thank You Letter sb4 Critical care time excluding procedures: 18:13 Critical care time: Bedside Care: 15 minutes, Consultation: 20 minutes. Total time: 35 sb4 minutes Addendum: 11/05/2024 07:25 Co-signature as Attending Physician, Mario Glez MD I reviewed the patient's care r n provided by the Advanced Practice Provider and agree with the diagnosis and treatment plan. Signatures: Dispatcher [employer] EDMS Tia Macias Roman, MD MD rn Oliver, Kathy RN RN ko1 Hannah Richard RN RN Jocelyn Knox, PA-C PA-C sb4 Marysol Palomares RN RN kj2 Corrections: (The following items were deleted from the chart) 11/03 18:04 18:04 URIC ACID+C.LAB.BRZ ordered. EDMS EDMS 18:04 18:04 CREATINE PHOSPHOKINASE+C.LAB.BRZ ordered. EDMS EDMS 18:04 18:04 THYROID STIMULAT HORMONE+C.LAB.BRZ ordered. EDMS EDMS 18:04 18:04 Cortisol+C.LAB.BRZ ordered. EDMS EDMS 18:04 18:04 Osmolality, Urine ordered. EDMS EDMS 18:04 18:04 URINE SODIUM RANDOM+CHEM UR.LAB.BRZ ordered. EDMS EDMS 18:04 18:04 URINE POTASSIUM RANDOM+CHEM UR.LAB.BRZ ordered. EDMS EDMS 18:04 18:04 URINE CREATININE+CHEM UR.LAB.BRZ ordered. EDMS EDMS 18:55 18:08 sb4 sp
--- NOTE | 2024-11-03 18:08 | ER ---
Nurse's Notes [facility] Name: Prema Soares Age: 74 yrs Sex: Female : 1950 Arrival Date: 11/03/2024 Time: 14:56 Bed 17 Private MD: Diagnosis: Hypokalemia;Elevated troponin;Acute kidney failure, unspecified Presentation: 11/03 15:15 Chief complaint: Patient states: doctor called and said my potassium was low and to ko1 come to the ER. Coronavirus screen: At this time, the client does not indicate any symptoms associated with coronavirus-19. Ebola Screen: No symptoms or risks identified at this time. Initial Sepsis Screen: Does the patient meet any 2 criteria? No. Patient's initial sepsis screen is negative. Does the patient have a suspected source of infection? No. Patient's initial sepsis screen is negative. Risk Assessment: Do you want to hurt yourself or someone else? Patient reports no desire to harm self or others. Onset of symptoms was November 03, 2024. 15:15 Method Of Arrival: Ambulatory ko1 15:15 Acuity: DEYSI 3 ko1 Triage Assessment: 15:18 General: Appears in no apparent distress. Behavior is calm, cooperative, appropriate ko1 for age. Pain: Denies pain. Historical: - Allergies: 15:18 No Known Allergies; ko1 - PMHx: 15:18 Hypertensive disorder; Diabetes mellitus; Hypercholesterolemia; ko1 15:24 Hypothyroidism; ko1 - PSHx: 15:18 Cholecystectomy; ko1 - Immunization history:: Adult Immunizations unknown. - Infectious Disease History:: Denies. - Social history:: Smoking status: Patient denies any tobacco usage or history of. Screenin:30 [facility] ED Fall Risk Assessment (Adult) History of falling in the last 3 months, db including since admission No falls in past 3 months (0 pts) Confusion or Disorientation No (0 pts) Intoxicated or Sedated No (0 pts) Impaired Gait Yes (1 pt) Mobility Assist Device Used Yes (1 pt) Altered Elimination No (0 pt) Score/Fall Risk Level 0 - 2 = Low Risk Oriented to surroundings, Maintained a safe environment. Abuse screen: Denies threats or abuse. Denies injuries from another. Nutritional screening: No deficits noted. Tuberculosis screening: No symptoms or risk factors identified. Assessment: 17:30 Reassessment: Patient appears in no apparent distress at this time. Patient and/or db family updated on plan of care and expected duration. Pain level reassessed. Patient is alert, oriented x 3, equal unlabored respirations, skin warm/dry/pink. General: Appears in no apparent distress. comfortable, Behavior is calm, cooperative. Neuro: Level of Consciousness is awake, alert, obeys commands, Oriented to person, place, time, situation. Respiratory: Airway is patent Respiratory effort is even, unlabored, Respiratory pattern is regular, symmetrical. 19:05 Reassessment: Patient appears in no apparent distress at this time. Patient and/or kj2 family updated on plan of care and expected duration. Pain level reassessed. Patient is alert, oriented x 3, equal unlabored respirations, skin warm/dry/pink. 20:00 Reassessment: Patient appears in no apparent distress at this time. Patient and/or kj2 family updated on plan of care and expected duration. Pain level reassessed. Patient is alert, oriented x 3, equal unlabored respirations, skin warm/dry/pink. 21:20 Reassessment: Patient appears in no apparent distress at this time. Patient and/or kj2 family updated on plan of care and expected duration. Pain level reassessed. Patient is alert, oriented x 3, equal unlabored respirations, skin warm/dry/pink. Vital Signs: 15:15 BP 190 / 79; Pulse 74; Resp 16; Temp 97.1; Pulse Ox 100% ; ko1 19:00 BP 187 / 83; Pulse 61; Resp 18; Temp 97.4; Pulse Ox 100% on R/A; db 20:00 BP 170 / 74; Pulse 68; Resp 18; Pulse Ox 100% ; kj2 21:10 BP 197 / 72; Pulse 69; Resp 18; Pulse Ox 100% ; kj2 21:42 BP 157 / 90; Pulse 79; Resp 18; Pulse Ox 100% on R/A; kj2 21:58 BP 168 / 71; Pulse 87; Resp 18; Pulse Ox 100% on R/A; kj2 ED Course: 15:00 Patient arrived in ED. im 15:15 Jocelyn Duke PA-C is PHCP. sb4 15:15 Mario Glez MD is Attending Physician. sb4 15:18 Triage completed. ko1 15:18 Arm band placed on right wrist. Patient placed in waiting room. ko1 16:54 Hannah Richard, RN is Primary Nurse. db 16:55 EKG done, by ED staff, reviewed by Jocelyn Duke PA-C. jl7 17:00 Missed attempt(s): 22 gauge in left wrist. Bleeding controlled, band aid applied, bc6 catheter tip intact. 17:07 Phosphorus Sent. bc6 17:07 Basic Metabolic Panel Sent. bc6 17:07 CBC with Diff Sent. bc6 17:07 Magnesium Sent. bc6 17:07 Troponin HS Sent. bc6 17:07 Initial lab(s) drawn, by tn, sent to lab. Inserted saline lock: 20 gauge in left wrist, bc6 using aseptic technique. Blood collected. Flushed with 10 mL NS. 18:07 Bernabe Neves MD is Hospitalizing Provider. sb4 19:36 Marysol Palomares, ISAIAS is Primary Nurse. kj2 22:25 No provider procedures requiring assistance completed. Patient admitted, IV remains in kj2 place. 22:26 Patient has correct armband on for positive identification. Bed in low position. kj2 Provided Education on: need for admit. Administered Medications: 17:18 Drug: Potassium Chloride IV 20 mEq IV at calculated rate once; administer over 1-2 db hours Route: IV; Rate: calculated rate; Site: left antecubital; 17:20 Drug: Potassium PO Effervescent Tablet 50 mEq PO once; dissolve in 4 ounces of water or db juice Route: PO; 22:25 Follow up: Response: No adverse reaction kj2 19:37 Drug: Potassium Chloride IV 20 mEq IV at calculated rate once; administer over 1-2 kj2 hours Route: IV; Rate: calculated rate; Site: left forearm; 21:37 Follow up: Response: No adverse reaction; IV Status: Completed infusion; IV Intake: kj2 100ml Medication: 21:59 VIS not applicable for this client. kj2 Intake: 21:37 IV: 100ml; Total: 100ml. kj2 Outcome: 18:08 Decision to Hospitalize by Provider. sb4 22:26 Admitted to Med/surg accompanied by tech, via stretcher, kj2 22:26 Condition: stable 22:26 Instructed on the need for admit, 22:27 Patient left the ED. kj2 Signatures: Adrienne Han RN RN jl7 Christine Hobson, RN RN ko1 Hananh Richard, RN RN Jocelyn Knox, JOVANY PALarsC amrit4 Dulce Mckenzie6 Tammy Salgado Krystal, RN RN kj2
[2024-11-03] MEDS ORDERED: ONDANSETRON 4 MG/2 ML VIAL IV PRN (18:21)
--- NOTE | 2024-11-03 18:26 | P.HP ---
Certification for Inpatient Patient admitted to: Inpatient With expected LOS: >2 Midnights Practitioner: I am a practitioner with admitting privileges, knowledge of patient current condition, hospital course, and medical plan of care. Services: Services provided to patient in accordance with Admission requirements found in Title 42 Section 412.3 of the Code of Federal Regulations Patient History Date of Service: 11/03/24 Reason for admission: Hypokalemia History of Present Illness: 74 yrs old Female with past medical history of hypertension, diabetes, hyperlipidemia,, CKD stage II, hypothyroidism, [place]'s disease, 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 Patient states that she had a routine blood work done yesterday and was called by the statistical developer with the results today and was told to come to ER for low potassium. Patient feeling dizzy and weak. No previous history of low potassium. Patient has a history of CKD and is on Lasix. Patient was assessed in the ER and was admitted for further management of hypokalemia and elevated cardiac enzymes Allergies No Known Allergies Allergy (Unverified 01/16/22 01:51) Home medications list reviewed: Yes Home Medications: Metoprolol Tartrate [Lopressor*] 1 tab PO BID 01/16/22 Allopurinol 100 mg PO DAILY 07/21/24 Ezetimibe 10 mg PO DAILY 07/21/24 Fludrocortisone [Florinef *] 0.1 mg PO DAILY 07/21/24 Furosemide [Lasix*] 20 mg PO DAILY 07/21/24 Hydralazine HCl 25 mg PO BID 07/21/24 Levothyroxine [Synthroid*] 125 mcg PO [id number] 07/21/24 Lisinopril [Zestril] 20 mg PO DAILY 07/21/24 Pravastatin Sodium 40 mg PO BEDTIME 07/21/24 Hydrocortisone [Cortef*] 10 mg PO BID #90 tab 07/23/24 - Past Medical/Surgical History Diabetic: Yes Past Medical History: Reviewed- Non-Contributory -: Diabetes mellitus type 2 -: Hypertension -: CKD -: Hypothyroidism Past Surgical History: Reviewed- Non-Contributory -: Cholecystectomy -: Wrist surgery Psychosocial/ Personal History: Patient lives at home, alone but has caregivers Thursday to Thursday until noon - Social History Smoking Status: Never smoker Alcohol use: No CD- Drugs: No Caffeine use: No Review of Systems 10-point ROS is otherwise unremarkable Physical Examination - Vital Signs Temperature: 97.4 F Blood Pressure: 182/78 Pulse: 78 Respirations: 18 Pulse Ox (%): 94 - Physical Exam General: Alert, In no apparent distress, Oriented x3 HEENT: Atraumatic, Normocephalic Neck: Supple, 2+ carotid pulse no bruit Respiratory: Clear to auscultation bilaterally, Normal air movement Cardiovascular: Regular rate/rhythm, Normal S1 S2 Capillary refill: <2 Seconds Gastrointestinal: Soft and benign, W/out hepatosplenomegaly Musculoskeletal: No clubbing, No swelling Integumentary: No rashes, No breakdown Neurological: Normal gait, Normal speech, Cranial nerves 3-12 intact, Normal reflexes 2+ Lymphatics: No axilla or inguinal lymphadenopathy - Studies Laboratory Data (last 24 hrs) 11/03/24 11/03/24 17:05 17:05 WBC 9.80 Hgb 10.5 L Hct 31.5 L Plt Count 193 Sodium 138 Potassium 1.8 L* BUN 39 H Creatinine 2.50 H Glucose 236 H Phosphorus 5.4 H Magnesium 2.0 Assessment and Plan - Plan Hypokalemia Electrolytes monitor and replace accordingly Potassium monitor Monitor closely under telemetry Acute kidney injury on CKD stage II Renal parameters monitored Nephrology consulted Monitor electrolytes and replace accordingly NSTEMI possibly type II due to hypertensive urgency Will trend cardiac enzymes Will monitor telemetry Started on aspirin and statin Patient denies any chest pain Cardiology consult if troponins trending higher Hypertension Antihypertensives titrated Continue home medications and titrate as needed Hyperlipidemia Continue statin Diabetes Insulin sliding scale Accu-Chek before every meal and at bedtime 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
[2024-11-03 20:03] LABS: Thyroid Stimulating Hormone 0.203 uIU/mL (0.358-3.740)
--- NOTE | 2024-11-03 20:40 | RAD REPORT ---
EXAMINATION: US RETROPERITONEUM CLINICAL INDICATION: [facility] acute kidney failure Bed Name: 17 TECHNIQUE: Real-time ultrasonography of the abdomen was performed. COMPARISON: No prior exam. FINDINGS: RIGHT KIDNEY: Right renal length measurement: 9.0 cm. Normal in echogenicity and size. No calculus, s olid mass or hydronephrosis. Exophytic hypoechoic lesion of the upper to midpole right kidney measuring 1.2 cm. A small anechoic 8 mL parapelvic mid to lower pole cyst is also noted, benign in ap pearance. LEFT KIDNEY: Left renal length measurement: 7.9 cm. Normal in echogenicity and size. No calculus, cirilo id mass or hydronephrosis. URINARY BLADDER: Normal. ADDITIONAL FINDINGS: None. IMPRESSION: Cortical echogenicity bilaterally suggesting medical renal disease. Exophytic right upper to midpole 1.2 cm hypoechoic lesion, indeterminate. Additional evaluation by re nal mass protocol MRI would be helpful.
[2024-11-03] MEDS ORDERED: HYDRALAZINE HCL 20 MG/ML VIAL ONE (21:13)
[2024-11-03] MEDS: HYDRALAZINE HCL 20 MG/ML VIAL IV PRN (21:19)
[2024-11-03] MEDS ORDERED: ACETAMINOPHEN 325 MG TABLET ONE (21:52)
[2024-11-03] MEDS: ACETAMINOPHEN 325 MG TABLET PO PRN (21:53)
[2024-11-03] MEDS: HEPARIN 5000 UNIT/ML 1 ML VIAL SQ SCH (23:04)
[2024-11-03 23:11] VITALS: BMI 31.7
[2024-11-04 00:49] LABS: Anion Gap 12.2 mEq/L (5.0-15.0); Magnesium 1.8 mg/dL (1.6-2.4); Phosphorus 4.2 mg/dL (2.5-4.9)
[2024-11-04 00:53] LABS: Specific Gravity 1.007 (1.005-1.030); Sqamous Epithelial <5 /HPF (None Seen); Urine Bacteria None Seen /HPF (<20); Urine Bilirubin NEGATIVE (Negative); Urine Blood Trace (Negative); Urine Clarity Clear (Clear); Urine Color Colorless (Yellow); Urine Culture Reflex Order NOT NEEDED; Urine Glucose 3+ (Negative); Urine Ketones NEGATIVE (Negative); Urine Microscopic Reflex YN ORDER UMIC; Urine Mucus Slight /HPF (None Seen); Urine Nitrite NEGATIVE (Negative); Urine Protein 2+ (Negative); Urine RBC <5 /HPF (None Seen); Urine Urobilinogen Normal (Normal); Urine WBC <5 /HPF (<5)
[2024-11-04 00:54] LABS: Potassium 2.2 mEq/L (3.5-5.1)
[2024-11-04] MEDS: NA CHLORIDE 0.9% 250 ML ONE (01:36)
[2024-11-04] MEDS: KCL 20 MEQ/100 mL IVPB 20 MEQ/100 ML BAG IV SCH (01:46)
[2024-11-04] MEDS ORDERED: KCL 20 MEQ/100 mL IVPB 20 MEQ/100 ML BAG IV SCH (02:00)
[2024-11-04 06:20] LABS: Albumin 2.5 g/dL (3.4-5.0); Albumin/Globulin Ratio 0.9 (1.1-1.8); Anion Gap 9.6 mEq/L (5.0-15.0); Bilirubin Total 0.4 mg/dL (0.2-1.0); Globulin 2.8 g/dL (2.3-3.5); Protein, Total 5.3 g/dL (6.4-8.2)
[2024-11-04 06:23] LABS: Potassium 2.6 mEq/L (3.5-5.1)
[2024-11-04 06:27] LABS: Absolute Eosinophils 0.2 K/uL (0-0.5); Absolute Lymphocytes (CBC) 1.8 K/uL (0.7-4.9); Absolute Monocytes 0.7 K/uL (0.1-1.3); Basophils % 0.3 % (0-1.3); Eosinophils % 2.3 % (0-4.4); Hematocrit 28.5 % (36.0-45.0); Hemoglobin 9.7 g/dL (12.0-15.0); Lymphocytes % 23.6 % (15.3-44.8); MCH 31.1 pg (27.0-35.0); MCHC 34.2 g/dL (32.0-36.0); MCV 90.9 fL (80-100); MPV 10.7 fL (7.6-11.3); Monocytes % 8.6 % (3.3-12.3); Neutrophils % 65.2 % (41.7-73.7); Platelets 186 thou/uL (152-406); RBC Red Blood Cell Count 3.13 M/uL (3.86-4.86); Red Cell Distribution Width 13.1 % (12.1-15.2)
[2024-11-04] MEDS: HYDRALAZINE HCL 25 MG TABLET PO SCH (08:20)
[2024-11-04] MEDS: lisinopriL 20 MG TAB PO SCH (08:20)
[2024-11-04] MEDS: allopurinoL 100 MG TAB PO SCH (08:20)
[2024-11-04] MEDS: FLUDROCORTISONE 0.1 MG TAB PO SCH (08:20)
[2024-11-04] MEDS: HYDROCORTISONE 10 MG TAB PO SCH ×2 (08:20→17:11)
[2024-11-04] MEDS: METOPROLOL TAR 25 MG TAB PO SCH (08:21)
[2024-11-04] MEDS: EZETIMIBE 10 MG TAB PO SCH (08:21)
[2024-11-04] MEDS: MAGNESIUM SULFATE 1 gm IVPB 1 GM/100 ML BAG IV ONE (08:23)
[2024-11-04] MEDS: CLONIDINE 0.2 MG/PATCH TD SCH (09:37)
--- NOTE | 2024-11-04 09:47 | P.PN ---
Date of Service: 11/04/24 Subjective Pt states she is feeling better today, less dizzy, ambulated with standby assist with walker to commode Review of Systems 10-point ROS is otherwise unremarkable Physical Examination - Vital Signs reviewed - Physical Exam General: Alert, In no apparent distress, Oriented x3 HEENT: Atraumatic, Normocephalic Neck: Supple, 2+ carotid pulse no bruit Respiratory: Clear to auscultation bilaterally, Normal air movement Cardiovascular: Regular rate/rhythm, Normal S1 S2 Capillary refill: <2 Seconds Gastrointestinal: Soft and benign, W/out hepatosplenomegaly Musculoskeletal: No clubbing, No swelling Integumentary: No rashes, No breakdown Neurological: Normal gait, Normal speech, Cranial nerves 3-12 intact, Normal reflexes 2+ Lymphatics: No axilla or inguinal lymphadenopathy - Studies Laboratory Data (last 24 hrs) 11/03/24 11/03/24 17:05 17:05 WBC 9.80 Hgb 10.5 L Hct 31.5 L Plt Count 193 Sodium 138 Potassium 1.8 L* BUN 39 H Creatinine 2.50 H Glucose 236 H Phosphorus 5.4 H Magnesium 2.0 Assessment and Plan Hypokalemia Electrolytes monitor and replace accordingly Potassium monitor Monitor closely under telemetry - no ectopy noted 11/04/24 Acute kidney injury on CKD stage II Renal parameters monitored Nephrology consulted Monitor electrolytes and replace accordingly NSTEMI possibly type II due to hypertensive urgency Will trend cardiac enzymes Will monitor telemetry Started on aspirin and statin Patient denies any chest pain Cardiology consult if troponins trending higher - trop trending down. 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 arrival potassium 1.8. 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
[2024-11-04] MEDS: ATORVASTATIN 10 MG TAB PO SCH (20:16)
[2024-11-04] MEDS: POTASSIUM 25 MEQ EFFERV TAB PO ONE (22:31)
--- NOTE | 2024-11-04 23:03 | CON ---
Date of Consultation: 11/04/2024 Reason For Consultation: Elevated troponin. History Of Present Illness: 74-year-old female, history of hypertension, diabetes, dyslipidemia, chr onic kidney disease, hypothyroidism, was sent to the emergency room because of high potassium. She d enies having any chest pain. No shortness of breath and was lying comfortably in the bed. No sympto ms. Past Medical History: As outlined above in the HPI. Medications: Refer consult sheet for detailed list. Allergies: NO KNOWN DRUG ALLERGIES. Family History: No premature coronary artery disease or cancer. Social History: Does not smoke or drink. Does not use any drugs. Review of Systems: All systems reviewed are negative except as mentioned in the HPI. Physical Examination: Vital Signs: Reviewed. Head and Neck: Pupils are equal, reactive to light. Intact eye movements. No JVD. No cervical lym phadenopathy. Neck is supple. Thyroid is not enlarged. Lungs: Clear to auscultation bilaterally. No rhonchi, wheezing, or crackles. No accessory muscle u se. Heart: Regular rate and rhythm. No extra sounds. Abdomen: Soft, nontender. Bowel sounds positive. No organomegaly. No masses or hernia. No rigidi ty or rebound. Extremities: No edema, clubbing, cyanosis. Intact pulses. Skin: No rash or nodules. Neuro: Alert, awake, oriented x3. No acute focal deficit appreciated. Investigations: BUN 30, creatinine is 2.23, potassium is 2.6 up from 1.8. Troponins around 80. Assessment And Recommendation: 1.Elevated troponin, very borderline, no symptoms. This is demand. No further cardiac workup is ne eded. 2.Hypokalemia. Aggressive management is being implemented. Magnesium level is normal. 3.Chronic kidney disease. Creatinine is stable. 4.Hypertension. Blood pressure is elevated. Recommend low-dose amlodipine 5 mg daily and adjust as needed. No active cardiac issue was present. Cardiology will sign off, and to follow up on outpati ent basis. SR/MODL Voice ID: [id number] Report ID: [id number]
--- NOTE | 2024-11-05 03:07 | CON ---
Date of Consultation: 11/04/2024 Chief Complaint: Hypokalemia, acute on chronic kidney injury. History Of Present Illness: The patient is a 74-year-old woman with past medical history of hypertension, diabetes mellitus, hyperlipidemia, lymphedema, CKD 2, hypothyroidism, Jose disease. She was brought to the hospital because of generalized weakness, persistent diarrhea, and she was found to have abnormal lab work. The patient states that she had a routine blood work done the day prior to admission and she was called by [facility] because of abnormal results, severe hypokalemia, and she was advised to present to emergency room. The patient is admitted to the hospital. The patient is feeling dizzy and weak. She is on IV fluids and she is on potassium supplementation. The patient has history of chronic kidney disease. Previously, she was taking Lasix for lymphedema and fluid overload. The patient was found to have elevated cardiac enzymes. She has had persistent diarrhea over last 1 week. She denies melena, hematemesis. Past Medical History: Diabetes mellitus with renal manifestation, chronic kidney disease stage 2, hypertension, hypothyroidism, Jose disease. Past Surgical History: Cholecystectomy, wrist surgery. Social History: Denies tobacco, alcohol. Denies drugs. Review of Systems: General: Complains of generalized weakness. Eyes: Denies vision changes. Ears, Nose, Mouth, and Throat: Denies sore throat, earache. Respiratory: She has dyspnea on exertion. GI: Had diarrhea. Denies melena or hematemesis. : Denies dysuria or hematuria. All other systems reviewed and all are negative. Physical Examination: General: Alert and oriented x3, not in acute distress. Neck: Supple. No JVD. No bruits. Respiratory: Clear to auscultation bilaterally. Cardiovascular: S1, S2. No pericardial friction or rub. Abdomen: Soft, benign, nontender. No rebound, no guarding. Extremities: Has slight pretibial edema. Neurologic: Moving extremities. Cranial nerves intact. Laboratory Data: Phosphorus 5.4, glucose 236, creatinine 2.5, BUN 39, potassium level 1.8, sodium 138. Hemoglobin 10.5, WBC 9.8, platelet count 193,000. Impression And Plan: 1. Severe hypokalemia. The patient is on potassium replacement. Continue telemetry. Continue supplementation. Check magnesium level. Avoid diuretics. 2. Acute kidney injury. Continue hydration. Renal ultrasound will be checked to rule out obstructive uropathy. 3. Non-ST elevation myocardial infarction secondary to hypertensive urgency. Cardiac enzymes were checked. Recommend Cardiology consultation. 4. Hypertension. Continue antihypertensive medication. Titrate to blood pressure goal. 5. Hyperlipidemia. Continue statin. 6. Diabetes mellitus. Continue insulin. The patient cannot take metformin due to acute kidney injury. 7. Diarrhea, work-up per primary tream , Recommend to consult Bail Bonding Agent re history of possible [place] disease. ERNESTINE/FAUSTO Voice ID: [id number] Report ID: [id number] MTDD
[2024-11-05 05:39] LABS: Anion Gap 8.5 mEq/L (5.0-15.0); Magnesium 2.1 mg/dL (1.6-2.4)
[2024-11-05 06:00] LABS: Potassium 2.5 mEq/L (3.5-5.1)
[2024-11-05] MEDS: NA CHLORIDE 0.9% 500 ML ONE (06:14)
[2024-11-05] MEDS: KCL 20 MEQ/100 mL IVPB 20 MEQ/100 ML BAG IV SCH ×2 (06:21→15:00)
[2024-11-05 11:04] LABS: Anion Gap 7.8 mEq/L (5.0-15.0); Phosphorus 3.8 mg/dL (2.5-4.9); Potassium 2.8 mEq/L (3.5-5.1)
[2024-11-05] MEDS: POTASSIUM 25 MEQ EFFERV TAB PO ONE (14:26)
[2024-11-05] MEDS: INSULIN REGULAR (HUMAN) 100 UNIT/ML SQ SCH ×2 (16:55→20:17)
--- NOTE | 2024-11-05 18:44 | P.PN ---
Subjective Date of Service: 11/05/24 Chief Complaint: Hypokalemia Hypokalemia, trend electrolytes replace. Nephrology following Review of Systems 10-point ROS is otherwise unremarkable Physical Examination - Vital Signs Temperature: 97.7 F Blood Pressure: 182/85 Pulse: 75 Respirations: 16 Pulse Ox (%): 97 - Physical Exam General: Alert, In no apparent distress, Oriented x3 HEENT: Atraumatic, Normocephalic, PERRLA Neck: Supple, 2+ carotid pulse no bruit Respiratory: Clear to auscultation bilaterally, Normal air movement Cardiovascular: No edema, Normal pulses, Regular rate/rhythm Capillary refill: <2 Seconds Gastrointestinal: Normal bowel sounds, Soft and benign Integumentary: No breakdown, No significant lesion Neurological: Normal speech, Normal strength at 5/5 x4 extr, Normal tone Assessment And Plan - Plan Assessment and Plan NSTEMI possibly type II due to hypertensive urgency Will trend cardiac enzymes Will monitor telemetry Started on aspirin and statin, as needed antihypertensives Patient denies any chest pain Cardiology consult if troponins trending higher - trop trending down. 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 arrival potassium 1.8. Will order echo to eval need for lasix Hypokalemia Acute kidney injury on CKD stage II anemia of chronic disease Nephrology consult Electrolytes monitor and replace accordingly Potassium monitor Monitor closely under telemetry - no ectopy noted 11/04/24 Trend H&H, transfuse less than 7 Hyperglycemia likely secondary to steroid use Diabetes mellitus Sliding scale insulin, Accu-Chek Accu-Chek before every meal and at bedtime Hypertension Antihypertensives titrated Continue home medications and titrate as needed Hyperlipidemia Continue statin Possible [place]'s disease Will continue Florinef and Cortef Will get an ACTH level and cortisol level Monitor closely GI/DVT prophylaxis Advanced directive full code Disposition Home independent prior Discharge Plan: Home Critical Care: No Time Spent Managing PTS Care (In Minutes): 35
--- NOTE | 2024-11-05 18:48 | P.PN ---
Date of Service: 11/05/24 Subjective Date of Service: 11/05/24 Chief Complaint: Hypokalemia Hypokalemia, trend electrolytes replace. Nephrology following Hypertensive urgency, as needed antihypertensives, no reported chest pain Review of Systems 10-point ROS is otherwise unremarkable Physical Examination - Vital Signs Reviewed - Physical Exam General: Alert, afebrile HEENT: Atraumatic, Normocephalic, PERRLA Neck: Supple, 2+ carotid pulse no bruit Respiratory: Clear to auscultation bilaterally, unlabored Cardiovascular: No edema, Normal pulses, Capillary refill: <2 Seconds Gastrointestinal: Normal bowel sounds, Soft and benign Integumentary: No breakdown, No significant lesion Neurological: Normal speech, Normal strength at 5/5 x4 extr, Assessment And Plan - Plan Assessment and Plan NSTEMI possibly type II hypertensive urgency Will trend cardiac enzymes Will monitor telemetry Started on aspirin and statin, as needed antihypertensives Patient denies any chest pain Cardiology consult if troponins trending higher - trop trending down. pt with [place]'s but on lisinopril, on lasix without noted ECHO. arrival potassium 1.8. Will order echo to eval need for lasix Hypokalemia Acute kidney injury on CKD stage II anemia of chronic disease Nephrology consult Electrolytes monitor and replace accordingly Potassium monitor Monitor closely under telemetry - no ectopy noted 11/04/24 Trend H&H, transfuse less than 7 Hyperglycemia likely secondary to steroid use Diabetes mellitus Sliding scale insulin, Accu-Chek Accu-Chek before every meal and at bedtime Hypertension Antihypertensives titrated Continue home medications and titrate as needed Hyperlipidemia Continue statin Possible [place]'s disease Will continue Florinef and Cortef Will get an ACTH level and cortisol level Monitor closely GI/DVT prophylaxis Advanced directive full code Disposition Home independent prior Discharge Plan: Home Critical Care: No Time Spent Managing PTS Care (In Minutes): 35
[2024-11-05 21:30] LABS: Anion Gap 9.9 mEq/L (5.0-15.0); Magnesium 2.1 mg/dL (1.6-2.4); Phosphorus 3.7 mg/dL (2.5-4.9); Potassium 2.9 mEq/L (3.5-5.1)
--- NOTE | 2024-11-06 00:54 | PN ---
Chief Complaint: Acute kidney injury, electrolyte abnormalities, severe hypokalemia. Review of Systems: Denies chest pain or palpitation. Physical Examination: Lungs: Clear to auscultation bilaterally. Heart: S1, S2. Abdomen: Soft. Extremities: No edema. Impression And Plan: 1. Acute kidney injury, prerenal azotemia due to uncontrolled diabetes. Continue IV fluids and monitor renal function. 2. Hyperglycemia, likely secondary to steroid use and diabetes mellitus related issue. 3. Acute kidney injury. Patient has nonoliguric urine output. Patient developed worsening of the renal function due to hypovolemia. Continue IV fluids. 4. Diarrhea, work-up per primary team 5. Hypertension. Continue current blood pressure medication. 6. Diabetes mellitus. Continue insulin. ERNESTINE/FAUSTO Voice ID: [id number] Report ID: [id number] MTDD
[2024-11-06] MEDS: NA CHLORIDE 0.9% 500 ML ONE (03:19)
[2024-11-06] MEDS: KCL 20 MEQ/100 mL IVPB 20 MEQ/100 ML BAG IV SCH ×2 (03:26→12:00)
[2024-11-06 09:18] LABS: Absolute Basophils 0.1 K/uL (0-0.5); Absolute Eosinophils 0.4 K/uL (0-0.5); Absolute Lymphocytes (CBC) 2.1 K/uL (0.7-4.9); Absolute Monocytes 0.7 K/uL (0.1-1.3); Absolute Neutrophil 6.6 K/uL (1.8-8.0); Basophils % 0.6 % (0-1.3); Eosinophils % 3.6 % (0-4.4); Hematocrit 32.6 % (36.0-45.0); Hemoglobin 10.5 g/dL (12.0-15.0); Lymphocytes % 21.4 % (15.3-44.8); MCH 30.1 pg (27.0-35.0); MCHC 32.1 g/dL (32.0-36.0); MCV 93.8 fL (80-100); MPV 10.6 fL (7.6-11.3); Monocytes % 6.7 % (3.3-12.3); Neutrophils % 67.7 % (41.7-73.7); Platelets 184 thou/uL (152-406); RBC Red Blood Cell Count 3.48 M/uL (3.86-4.86); Red Cell Distribution Width 13.2 % (12.1-15.2)
--- NOTE | 2024-11-06 09:21 | P.PN ---
Date of Service: 11/06/24 Subjective Pt states she is feeling better today, but not back to normal yet Review of Systems 10-point ROS is otherwise unremarkable Physical Examination - Vital Signs reviewed - Physical Exam General: Alert, In no apparent distress, Oriented x3 HEENT: Atraumatic, Normocephalic Neck: Supple, 2+ carotid pulse no bruit Respiratory: Clear to auscultation bilaterally, Normal air movement Cardiovascular: Regular rate/rhythm, Normal S1 S2 Capillary refill: <2 Seconds Gastrointestinal: Soft and benign, W/out hepatosplenomegaly Musculoskeletal: No clubbing, No swelling Integumentary: No rashes, No breakdown Neurological: Normal gait, Normal speech, Cranial nerves 3-12 intact, Normal reflexes 2+ Lymphatics: No axilla or inguinal lymphadenopathy - Studies Laboratory Data (last 24 hrs) 11/03/24 11/03/24 17:05 17:05 WBC 9.80 Hgb 10.5 L Hct 31.5 L Plt Count 193 Sodium 138 Potassium 1.8 L* BUN 39 H Creatinine 2.50 H Glucose 236 H Phosphorus 5.4 H Magnesium 2.0 Assessment and Plan Hypokalemia Electrolytes monitor and replace accordingly Potassium monitor Monitor closely under telemetry - no ectopy noted 11/04/24 slowly improving to 2.9 on 11/06/24 Acute kidney injury on CKD stage II Renal parameters monitored Nephrology consulted -orders placed Monitor electrolytes and replace accordingly NSTEMI possibly type II due to hypertensive urgency Will trend cardiac enzymes Will monitor telemetry Started on aspirin and statin Patient denies any chest pain Cardiology consult if troponins trending higher - trop trending down. pt with [facility] but on lisinopril, on lasix without noted ECHO. arrival potassium 1.8. Will order echo to eval need for lasix Hypertension Antihypertensives titrated - increased po Hydralazine to 25mg TID from BID. Pt remains quite hypertensive. 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
[2024-11-06 09:32] LABS: Albumin 2.4 g/dL (3.4-5.0); Albumin/Globulin Ratio 0.9 (1.1-1.8); Anion Gap 10.2 mEq/L (5.0-15.0); Bilirubin Total 0.4 mg/dL (0.2-1.0); Globulin 2.8 g/dL (2.3-3.5); Potassium 3.2 mEq/L (3.5-5.1); Protein, Total 5.2 g/dL (6.4-8.2)
[2024-11-06] MEDS: HYDRALAZINE HCL 25 MG TABLET PO SCH (13:18)
--- NOTE | 2024-11-06 19:37 | PN ---
Date of Progress Note: 11/06/2024 Chief Complaint: Acute kidney injury, electrolyte abnormalities, severe hypokalemia. Subjective: The patient is doing better. She is tolerating supplementation with potassium chloride. Review of Systems: Denies chest pain or palpitation. Objective: Lungs: Clear to auscultation bilaterally. Heart: S1, S2. Abdomen: Soft. Benign. Extremities: No edema. Impression And Plan: 1. Acute kidney injury, prerenal azotemia due to uncontrolled diabetes. Continue IV fluids and monitor renal function. 2. Hyperglycemia, likely secondary to steroid use and diabetes mellitus related issues. 3. Acute kidney injury. Patient has nonoliguric urine output. Patient developed worsening of the renal function due to hypovolemia. Continue IV fluids. 4. Diarrhea per primary team 5. Hypertension. Continue current medication. 6. Diabetes mellitus. Continue insulin. ERNESTINE/FAUSTO Voice ID: [id number] Report ID: [id number] [email or web address]
[2024-11-07 06:26] LABS: Absolute Eosinophils 0.4 K/uL (0-0.5); Absolute Lymphocytes (CBC) 2.2 K/uL (0.7-4.9); Absolute Monocytes 0.7 K/uL (0.1-1.3); Absolute Neutrophil 4.4 K/uL (1.8-8.0); Basophils % 0.5 % (0-1.3); Eosinophils % 5.5 % (0-4.4); Hematocrit 29.6 % (36.0-45.0); Hemoglobin 9.7 g/dL (12.0-15.0); Lymphocytes % 27.9 % (15.3-44.8); MCH 30.5 pg (27.0-35.0); MCHC 32.8 g/dL (32.0-36.0); MPV 9.9 fL (7.6-11.3); Monocytes % 9.4 % (3.3-12.3); Neutrophils % 56.7 % (41.7-73.7); Platelets 180 thou/uL (152-406); RBC Red Blood Cell Count 3.18 M/uL (3.86-4.86); Red Cell Distribution Width 13.4 % (12.1-15.2)
[2024-11-07 06:39] LABS: Albumin 2.2 g/dL (3.4-5.0); Albumin/Globulin Ratio 0.8 (1.1-1.8); Anion Gap 7.4 mEq/L (5.0-15.0); Bilirubin Total 0.3 mg/dL (0.2-1.0); Globulin 2.7 g/dL (2.3-3.5); Potassium 3.4 mEq/L (3.5-5.1); Protein, Total 4.9 g/dL (6.4-8.2)
[2024-11-07 07:32] LABS: Magnesium 2.2 mg/dL (1.6-2.4); Phosphorus 3.7 mg/dL (2.5-4.9)
--- NOTE | 2024-11-07 08:21 | RAD REPORT ---
EXAMINATION: CT ABDOMEN AND PELVIS WITHOUT CONTRAST CLINICAL INDICATION: Abdominal pain. Renal mass. Acute renal insufficiency. TECHNIQUE: CT abdomen and pelvis was performed, as per department protocol. IV contrast and oral was not administered.Axial, sagittal and coronal reconstructions were obtained. One or more of the following dose reduction techniques were used: Automated exposure control, adjustment of the mA and/o r kV according to the patient size, and/or iterative reconstruction. Unless otherwise specified, incidental findings do not require dedicated imaging follow-up. [id number]. COMPARISON: Abdominal ultrasound September 2024 FINDINGS: The lack of intravenous and oral contrast limits evaluation of solid organs, vessels and bowel. Small pleural effusions. Cholecystectomy. Pneumobilia. Mild dilatation intra and extrahepatic biliary tree. The liver, spleen, pancreas, and adrenals appear grossly normal 9 mm low-density mass extends off the mid pole right kidney. Left kidney grossly normal. No adnexal mass. No evidence of diverticulitis 10 cm area of narrowing involves the rectum. No lymphadenopathy seen. Presacral edema is present. Marked compression deformity L1 vertebral body has a more chronic than ac point hope ira appearance. IMPRESSION: 10 cm area of narrowing involves the rectum. This may represent neoplasm or inflammation. Pneumobilia. Patient is status post cholecystectomy. Mild dilatation of the intra and extrahepatic bi liary tree may be physiologic. This should be correlated clinically. 1 cm right renal mass probably benign. Follow-up renal ultrasound in 3 months recommended. Bala thrasher, MRI could be obtained
[2024-11-07] MEDS: POTASSIUM CL SA 10 MEQ TAB PO ONE (09:22)
--- NOTE | 2024-11-07 09:40 | P.DS ---
Admission Date: 11/03/24 Discharge Date: 11/07/24 Reason for Admission: Hypokalemia Consultations: Nephrology, Cardiology Brief History of Present Illness: The patient is a 74-year-old woman with past medical history of hypertension, diabetes mellitus, hyperlipidemia, lymphedema, CKD 2, hypothyroidism, Jose disease. She was brought to the hospital because of generalized weakness, persistent diarrhea, and she was found to have abnormal lab work. The patient states that she had a routine blood work done the day prior to admission and she was called by [facility] because of abnormal results, severe hypokalemia, and she was advised to present to emergency room. The patient is admitted to the hospital. The patient is feeling dizzy and weak. She is on IV fluids and she is on potassium supplementation. The patient has history of chronic kidney disease. Previously, she was taking Lasix for lymphedema and fluid overload. The patient was found to have elevated cardiac enzymes. She has had persistent diarrhea over last 1 week. She denies melena, hematemesis. Vital Signs/Physical Exam: Temp Pulse Resp BP Pulse Ox 98.3 F 61 14 171/79 H 98 11/07/24 08:00 11/07/24 09:24 11/07/24 08:00 11/07/24 09:24 11/07/24 08:00 General: Alert, In no apparent distress, Oriented x3, Cooperative, Obese HEENT: Atraumatic, Normocephalic Neck: Supple Respiratory: Normal air movement Cardiovascular: Normal pulses, Regular rate/rhythm, Normal S1 S2, Other (off tele now that potassium is in normal range, up from 1.8) Capillary refill: <2 Seconds Gastrointestinal: Soft and benign Musculoskeletal: No clubbing, No swelling Integumentary: No rashes Neurological: Normal speech, Normal tone, Normal affect, Other (declines dizziness) Lymphatics: No axilla or inguinal lymphadenopathy External genitalia: Deferred Rectal: Deferred Laboratory Data at Discharge: WBC 7.70 thou/uL (4.3-10.9) 11/07/24 05:59 Hgb 9.7 g/dL (12.0-15.0) L 11/07/24 05:59 Hct 29.6 % (36.0-45.0) L 11/07/24 05:59 Plt Count 180 thou/uL (152-406) 11/07/24 05:59 Sodium 140 mEq/L (136-145) 11/07/24 05:59 Potassium 3.4 mEq/L (3.5-5.1) L 11/07/24 05:59 BUN 31 mg/dL (7-18) H 11/07/24 05:59 Creatinine 2.15 mg/dL (0.55-1.02) H 11/07/24 05:59 Glucose 93 mg/dL (74-106) 11/07/24 05:59 Uric Acid 5.0 mg/dL (2.6-6.0) 11/03/24 19:25 Phosphorus 3.7 mg/dL (2.5-4.9) 11/07/24 05:59 Magnesium 2.2 mg/dL (1.6-2.4) 11/07/24 05:59 Total Bilirubin 0.3 mg/dL (0.2-1.0) 11/07/24 05:59 AST 42 U/L (15-37) H 11/07/24 05:59 ALT 51 U/L (13-56) 11/07/24 05:59 Alkaline Phosphatase 130 U/L (45-117) H 11/07/24 05:59 Home Medications: Metoprolol Tartrate [Lopressor*] 1 tab PO BID 01/16/22 Allopurinol 100 mg PO DAILY 07/21/24 Ezetimibe 10 mg PO DAILY 07/21/24 Fludrocortisone [Florinef *] 0.1 mg PO DAILY 07/21/24 Furosemide [Lasix*] 20 mg PO DAILY 07/21/24 Hydralazine HCl 25 mg PO BID 07/21/24 Levothyroxine [Synthroid*] 125 mcg PO [id number] 07/21/24 Pravastatin Sodium 40 mg PO BEDTIME 07/21/24 Hydrocortisone [Cortef*] 10 mg PO BID #90 tab 07/23/24 Amlodipine [Norvasc*] 10 mg PO DAILY #90 tab 11/07/24 Clonidine Patch [Catapres-Tts 2*] 0.2 mg TD EVERY 7TH DAY #10 pat 11/07/24 Hydralazine [Apresoline*] 25 mg PO TID #270 tab 11/07/24 New Medications: Hydralazine [Apresoline*] 25 mg PO TID #270 tab Clonidine Patch [Catapres-Tts 2*] 0.2 mg TD EVERY 7TH DAY #10 pat Amlodipine [Norvasc*] 10 mg PO DAILY #90 tab Physician Discharge Instructions: Must follow-up with GI for colonoscopy in 2 to 3 weeks Must follow-up with nephrology in 1 week Nonurgent cardiology follow-up Diet: ADA Followup: Jasmin Patel [Primary Care Provider] -
[2024-11-07] MEDS: POTASSIUM 25 MEQ EFFERV TAB PO ONE (09:59)
--- NOTE | 2024-11-07 10:40 | ECHO ---
HEIGHT: 4 ft 7 in WEIGHT: 136 lb 9.6 oz DATE OF STUDY: 11/04/[address]: Edwige Monroe FASHION MERCHANDISER-BC 2-DIMENSIONAL: YES M.MODE: YES DOPPLER: YES COLOR FLOW: YES TDS: NO PORTABLE: YES DEFINITY: NO BUBBLE STUDY: NO DIAGNOSIS: EVALUATION NEEDED FOR LASIX CARDIAC HISTORY: CATHERIZATION: SURGERY: PROSTHETIC VALVE: PACEMAKER: MEASUREMENTS (cm) DIASTOLIC (NORMALS) SYSTOLIC (NORMALS) IVSd 0.9 (0.6-1.2) LA Diam 3.4 (1.9-4.0) LVEF 75% LVIDd 3.5 (3.5-5.7) LVIDs 2.0 (2.0-3.5) %FS 43% LVPWd 0.9 (0.6-1.2) Ao Diam 2.9 (2.0-3.7) 2 DIMENSIONAL ASSESSMENT: RIGHT ATRIUM: NORMAL LEFT ATRIUM: NORMAL RIGHT VENTRICLE: NORMAL LEFT VENTRICLE: HYPERDYNAMIC LEFT VENTRICLE TRICUSPID VALVE: MILD TRICUSPID REGURGITATION MITRAL VALVE: MILD MITRAL REGURGITATION PULMONIC VALVE: NORMAL AORTIC VALVE: NORMAL PERICARDIAL EFFUSION: NONE AORTIC ROOT: NORMAL LEFT VENTRICULAR WALL MOTION: NORMAL. DOPPLER/COLOR FLOW: SEE BELOW. COMMENTS: 1. NORMAL LEFT VENTRICULAR EJECTION FRACTION (HYPERDYNAMIC LEFT VENTRICLE) EJECTION FRACTION GREATER THAN 70%. 2. MILD MITRAL REGURGITATION. 3. MILD TRICUSPID REGURGITATION. 4. DIASOTLIC DYSFUNCTION. 5. NORMAL RIGHT VENTRICULAR SYSTOLIC PRESSURE. TECHNOLOGIST: GINA PAGE
--- NOTE | 2024-11-07 11:56 | P.PN ---
Date of Service: 11/07/24 Subjective Pt states she is feeling better today, less dizziness, will work with PT Review of Systems 10-point ROS is otherwise unremarkable Physical Examination - Vital Signs reviewed - Physical Exam General: Alert, In no apparent distress, Oriented x3 HEENT: Atraumatic, Normocephalic Neck: Supple, 2+ carotid pulse no bruit Respiratory: Clear to auscultation bilaterally, Normal air movement Cardiovascular: Regular rate/rhythm, Normal S1 S2 Capillary refill: <2 Seconds Gastrointestinal: Soft and benign, W/out hepatosplenomegaly Musculoskeletal: No clubbing, No swelling Integumentary: No rashes, No breakdown Neurological: Normal gait, Normal speech, Cranial nerves 3-12 intact, Normal reflexes 2+ Lymphatics: No axilla or inguinal lymphadenopathy - Studies Laboratory Data (last 24 hrs) 11/03/24 11/03/24 17:05 17:05 WBC 9.80 Hgb 10.5 L Hct 31.5 L Plt Count 193 Sodium 138 Potassium 1.8 L* BUN 39 H Creatinine 2.50 H Glucose 236 H Phosphorus 5.4 H Magnesium 2.0 Assessment and Plan Hypokalemia Electrolytes monitor and replace accordingly Potassium monitor Monitor closely under telemetry - no ectopy noted 11/04/24 slowly improving to 2.9 on 11/06/24 3.4 on 11/07/24 Acute kidney injury on CKD stage II Renal parameters monitored Nephrology consulted -orders placed Monitor electrolytes and replace accordingly NSTEMI possibly type II due to hypertensive urgency Will trend cardiac enzymes Will monitor telemetry Started on aspirin and statin Patient denies any chest pain Cardiology consult if troponins trending higher - trop trending down. 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 arrival potassium 1.8. Will order echo to eval need for lasix ECHO with hyperdynamic EF at 75%, DD Hypertension Antihypertensives titrated - increased po Hydralazine to 25mg TID from BID. Pt remains quite hypertensive. HR variable 60-80 Continue home medications and titrate as needed 170s/80s 11/07/24 Hyperlipidemia Continue statin Diabetes Insulin sliding scale Accu-Chek before every meal and at bedtime Possible [place]'s disease Will continue Florinef and Cortef Will get an ACTH level and cortisol level Monitor closely 11/06/24 probable discharge in 1-2 days 11/07/24 will work with PT and see about dc later today or tomorrow GI/DVT prophylaxis Advanced directive full code <MonroeEdwige - Last Filed: 11/07/24 11:57> Chart has been reviewed. Events of the last 24 hours have been noted. Case discussed with MAT. I performed a substantial part of the MDM during this patient's care today. I personally made or approved the documented management plan and acknowledge its risk of complications. I agree with the findings and documentation provided in the MAT's notes <Balbir Spangler - Last Filed: 11/15/24 01:56>
[2024-11-07 18:42] LABS: Anion Gap 7.1 mEq/L (5.0-15.0); Magnesium 2.2 mg/dL (1.6-2.4); Potassium 4.1 mEq/L (3.5-5.1)
--- NOTE | 2024-11-07 21:40 | PN ---
Date of Progress Note: 11/07/2024 Chief Complaint: Acute kidney injury secondary to prerenal azotemia. Subjective: The patient was found to have severe hypokalemia and received supplementation with potas sium chloride. Potassium level is improving. Apparently, prior to this admission, the patient had s evere diarrhea. CT scan of the abdomen and pelvis without contrast was done and showed possible rect al mass, rule out malignancy versus inflammatory changes. Also, there is presence of kidney mass and the patient needs Urology and Surgical consultation to work up rectal mass as well as kidney mass. Review of Systems: The patient denies chest pain, palpitation. Physical Examination: Lungs: Clear to auscultation bilaterally. Heart: S1, S2. Abdomen: Soft, benign. Extremities: No edema. Impression And Plan: 1.Acute kidney injury. Prerenal azotemia due to uncontrolled diabetes. Continue IV fluids. Monito r renal function. 2.Hypokalemia. Check magnesium level and check fractional excretion of magnesium. Plan is to evalu ate transtubular potassium gradient, urine osmolality, serum osmolality, urine potassium. BMP was or dered. 3.Hypertension. Continue current medication. 4.Diabetes mellitus. Continue insulin. 5.The patient has apparently diagnosis previously made of adrenal insufficiency. I discussed with Kelsi Spangler to re-evaluate adrenal gland status. The patient may benefit from Endocrinology consultation. ERNESTINE/FAUSTO Voice ID: [id number] Report ID: [id number]
--- NOTE | 2024-11-08 08:41 | P.DS ---
Admission Date: 11/03/24 Discharge Date: 11/12/24 Reason for Admission: Hypokalemia Brief History of Present Illness: 74 yrs old Female with past medical history of hypertension, diabetes, hyperlipidemia,, CKD stage II, hypothyroidism, [place]'s disease, 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 Patient states that she had a routine blood work done yesterday and was called by the pump technician with the results today and was told to come to ER for low potassium. Patient feeling dizzy and weak. No previous history of low potassium. Patient has a history of CKD and is on Lasix. Patient was assessed in the ER and was admitted for further management of hypokalemia and elevated cardiac enzymes - Physical Exam General: Alert, In no apparent distress, Oriented x3 HEENT: Atraumatic, Normocephalic Neck: Supple, 2+ carotid pulse no bruit Respiratory: Clear to auscultation bilaterally, Normal air movement Cardiovascular: Regular rate/rhythm, Normal S1 S2 Capillary refill: <2 Seconds Gastrointestinal: Soft and benign, W/out hepatosplenomegaly Musculoskeletal: No clubbing, No swelling Integumentary: No rashes, No breakdown Neurological: Normal gait, Normal speech, Cranial nerves 3-12 intact, Normal reflexes 2+ Hospital Course: 74 yrs old Female with past medical history of hypertension, diabetes, hyperlipidemia,, CKD stage II, hypothyroidism, Jose's disease, 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 Patient states that she had a routine blood work done yesterday and was called by the pump technician with the results today and was told to come to ER for low potassium. Patient feeling dizzy and weak. No previous history of low potassium. Patient has a history of CKD and is on Lasix. She was seen by nephrology, electrolytes replaced as needed, noted hypertensive urgency, treated with antihypertensives, elevated BNP, NSTEMI, seen by cardiology, had echo while inpatient, Discharge medication Clonidine 0.21 every 7 days Apresoline 25 mg 1 3 times daily for systolic greater than 160 Norvasc 10 mg daily Assessment Acute kidney injury, CKD stage II seen by nephrology while inpatient Hypokalemia trend electrolytes replace as needed while inpatient NSTEMI with hypertensive urgency, treated with antihypertensives,-follow-up with cardiology after discharge no additional cardiology workup warranted Hypertension, hyperlipidemia, diabetes, resume home medication Uncontrolled diabetes, follow-up with PCP, endocrinology after discharge Possible [place]'s disease, patient with benefit from endocrinology outpatient after discharge for further evaluation Colon mass, colonoscopy was normal colon mass ruled out EF greater than 70%, mild to moderate regurgitation, mild tricuspid regurgitation, systolic dysfunction, Continue home medicines as previously prescribed GOAL: Clear understanding of disease process INSTRUCTIONS: Physician Discharge Instructions: -Follow-up with endocrinology after discharge for uncontrolled diabetes, evaluation for Jose's disease -Follow-up with cardiology after discharge call office for appointment -Follow-up with nephrology after discharge call office for appointment -Follow-up with PCP in 1 to 2 weeks -Please call Dr. Spangler at [phone] if any questions regarding hospital stay -Please call nursing station at [phone] if any nursing or medication questions -Return to the emergency room if symptoms worsen Diet: ADA, low sodium Activity: Fall precautions <Ashley Ricks - Last Filed: 11/12/24 20:48> Admission Date: 11/03/24 Discharge Date: 11/12/24 Hospital Course: Chart has been reviewed. Events of the last 24 hours have been noted. Case discussed with MAT. I performed a substantial part of the MDM during this patient's care today. I personally made or approved the documented management plan and acknowledge its risk of complications. I agree with the findings and documentation provided in the MAT's notes <Balbir Spangler - Last Filed: 11/15/24 01:58> Disposition: [facility] Discharge Condition: GOOD Vital Signs/Physical Exam: Temp Pulse Resp BP Pulse Ox 97.8 F 71 18 179/87 H 97 11/08/24 04:00 11/08/24 08:19 11/08/24 04:00 11/08/24 08:19 11/08/24 04:00 Laboratory Data at Discharge: WBC 7.70 thou/uL (4.3-10.9) 11/07/24 05:59 Hgb 9.7 g/dL (12.0-15.0) L 11/07/24 05:59 Hct 29.6 % (36.0-45.0) L 11/07/24 05:59 Plt Count 180 thou/uL (152-406) 11/07/24 05:59 Sodium 134 mEq/L (136-145) L D 11/07/24 18:16 Potassium 4.1 mEq/L (3.5-5.1) D 11/07/24 18:16 BUN 33 mg/dL (7-18) H 11/07/24 18:16 Creatinine 2.11 mg/dL (0.55-1.02) H 11/07/24 18:16 Glucose 211 mg/dL (74-106) H 11/07/24 18:16 Uric Acid 5.0 mg/dL (2.6-6.0) 11/03/24 19:25 Phosphorus 3.7 mg/dL (2.5-4.9) 11/07/24 05:59 Magnesium 2.2 mg/dL (1.6-2.4) 11/07/24 18:16 Total Bilirubin 0.3 mg/dL (0.2-1.0) 11/07/24 05:59 AST 42 U/L (15-37) H 11/07/24 05:59 ALT 51 U/L (13-56) 11/07/24 05:59 Alkaline Phosphatase 130 U/L (45-117) H 11/07/24 05:59 <Ashley Ricks - Last Filed: 11/12/24 20:48> Vital Signs/Physical Exam: Temp Pulse Resp BP Pulse Ox 98.1 F 62 16 166/80 H 97 11/13/24 08:59 11/13/24 08:59 11/13/24 08:59 11/13/24 08:59 11/13/24 08:59 General: Alert, In no apparent distress, Oriented x3 Laboratory Data at Discharge: WBC 4.30 thou/uL (4.3-10.9) 11/12/24 04:52 Hgb 9.8 g/dL (12.0-15.0) L 11/12/24 04:52 Hct 30.6 % (36.0-45.0) L 11/12/24 04:52 Plt Count 169 thou/uL (152-406) 11/12/24 04:52 Sodium 138 mEq/L (136-145) 11/12/24 04:52 Potassium 4.3 mEq/L (3.5-5.1) D 11/12/24 04:52 BUN 21 mg/dL (7-18) H 11/12/24 04:52 Creatinine 1.99 mg/dL (0.55-1.02) H 11/12/24 04:52 Glucose 74 mg/dL (74-106) 11/12/24 04:52 Uric Acid 5.0 mg/dL (2.6-6.0) 11/03/24 19:25 Phosphorus 3.7 mg/dL (2.5-4.9) 11/12/24 04:52 Magnesium 2.0 mg/dL (1.6-2.4) 11/09/24 04:48 Total Bilirubin 0.2 mg/dL (0.2-1.0) 11/10/24 06:01 AST 63 U/L (15-37) H 11/10/24 06:01 ALT 76 U/L (13-56) H 11/10/24 06:01 Alkaline Phosphatase 171 U/L (45-117) H 11/10/24 06:01 <Balbir Spangler - Last Filed: 11/15/24 01:58> Diet: ADA Time spent managing pt's care (in minutes): 45 <Ashley Ricks - Last Filed: 11/12/24 20:48> <Balbir Spangler - Last Filed: 11/15/24 01:58> Home Medications: Metoprolol Tartrate [Lopressor*] 1 tab PO BID 01/16/22 Allopurinol 100 mg PO DAILY 07/21/24 Ezetimibe 10 mg PO DAILY 07/21/24 Fludrocortisone [Florinef *] 0.1 mg PO DAILY 07/21/24 Furosemide [Lasix*] 20 mg PO DAILY 07/21/24 Hydralazine HCl 25 mg PO BID 07/21/24 Levothyroxine [Synthroid*] 125 mcg PO [id number] 07/21/24 Pravastatin Sodium 40 mg PO BEDTIME 07/21/24 Hydrocortisone [Cortef*] 10 mg PO BID #90 tab 07/23/24 Amlodipine [Norvasc*] 10 mg PO DAILY #90 tab 11/07/24 Clonidine Patch [Catapres-Tts 2*] 0.2 mg TD EVERY 7TH DAY #10 pat 11/07/24 Hydralazine [Apresoline*] 25 mg PO TID #270 tab 11/07/24 New Medications: Hydralazine [Apresoline*] 25 mg PO TID #270 tab Clonidine Patch [Catapres-Tts 2*] 0.2 mg TD EVERY 7TH DAY #10 pat Amlodipine [Norvasc*] 10 mg PO DAILY #90 tab Physician Discharge Instructions: Must follow-up with GI for colonoscopy in 2 to 3 weeks Must follow-up with nephrology in 1 week Nonurgent cardiology follow-up 74 yrs old Female with past medical history of hypertension, diabetes, hyperlipidemia,, CKD stage II, hypothyroidism, Jose's disease, 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 Patient states that she had a routine blood work done yesterday and was called by the pump technician with the results today and was told to come to ER for low potassium. Patient feeling dizzy and weak. No previous history of low potassium. Patient has a history of CKD and is on Lasix. She was seen by nephrology, electrolytes replaced as needed, noted hypertensive urgency, treated with antihypertensives, elevated BNP, NSTEMI, seen by cardiology, had echo while inpatient, Discharge medication Clonidine 0.21 every 7 days Metoprolol 25 mg daily Procardia 60 mg twice a day Apresoline 25 mg 1 3 times daily for systolic greater than 160 Norvasc 10 mg daily Assessment : Mass, needs to follow-up with Dr. 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 Rios, call to schedule appointment at [phone] -Follow-up with cardiology after discharge call office for appointment at [phone] -Follow-up with nephrology after discharge call office for appointment at [phone] -Follow-up with PCP in 1 to 2 weeks, call Dr. Patel's office for appointment at [phone] -Please call Dr. Spangler at [phone] if any questions regarding hospital stay -Please call nursing station at [phone] if any nursing or medication questions -Return to the emergency room if symptoms worsen Diet: ADA, low sodium Activity: Fall precautions Orders for home health (resumption) sent to: [facility] [phone] fax [phone] Followup: Marie Santiago MD [COURTESY - CAN ADMIT] - 1-2 Weeks John Robin [ACTIVE - CAN ADMIT] - (Appointment Thursday, January 16, 2025 at 1:30pm. Call to confirm appointment date/time. ) Jasmin Patel [Primary Care Provider] - 1-2 Weeks TEE HARGROVE [OUTSIDE PHYSICIAN] -
--- NOTE | 2024-11-08 11:17 | PN ---
Date of Progress Note: 11/08/2024 Subjective: The patient was admitted to the hospital with acute kidney injury, hypokalemia, hypomagnesemia. Patient has history of adrenal insufficiency with RTA. The patient feeling better. Objective: Vital Signs: Blood pressure 179/87, pulse of 71, afebrile. Chest: Clear to auscultation. Heart: S1, S2. Regular. Abdomen: Soft, nontender. Extremities: Trace edema. Neurologic: Alert. No focality. Laboratory Data: Hemoglobin 9.7, sodium 134, potassium 4.1, bicarb 23, BUN 33, creatinine 2.1, calcium 8.4, phosphorus 2.2, transtubular potassium gradient >8. Current Medications: The patient on, it includes atorvastatin, clonidine 0.2, hydralazine 25 t.i.d., lisinopril, metoprolol, hydrocortisone, Florinef. Assessment And Plan: 1. Acute kidney injury secondary to prerenal, recovered, back close to baseline. I am going to continue to monitor the patient. The patient cleared from the Renal standpoint for discharge planning. Follow up in the office in 2- 3 weeks. 2. Hypokalemia secondary to adrenal insufficiency with salt wasting. I am going to hold on the Florinef for now. Continue hydrocortisone and we will monitor the patient. 3. Hypertension. Discontinue Florinef. Continue lisinopril. Continue hydralazine and clonidine. We will follow up. 4. Hypomagnesemia, status post supplement, resolved. 5. RTA, as above. 6. Edema. Continue p.r.n. Lasix. We will follow up. Time spent examining the patient [id number] reviewing data lab and radiology placing orders or discussing the case with the patient discussing the case with the security team lead including hospitalist and nursing staff more than 55-minute MARÍA/FAUSTO Voice ID: [id number] Report ID: [id number] ALEX
--- NOTE | 2024-11-08 19:03 | P.PN ---
Date of Service: 11/08/24 Subjective Chief Complaint: Hypokalemia Hypokalemia resolved Hypertensive urgency, as needed antihypertensives, no reported chest pain Ambulated with physical therapy while inpatient, plan to discharge home with home Review of Systems 10-point ROS is otherwise unremarkable Physical Examination - Vital Signs Reviewed - Physical Exam General: Alert, afebrile, generalized weakness HEENT: Atraumatic, Normocephalic, PERRLA Neck: Supple, 2+ carotid pulse no bruit Respiratory: Clear to auscultation bilaterally, unlabored Cardiovascular: Normal pulses, Capillary refill: <2 Seconds Gastrointestinal: Normal bowel sounds, nontender Integumentary: No breakdown, No significant lesion Neurological: Normal speech, Normal strength at 5/5 x4 extr, Assessment And Plan - Plan Assessment and Plan NSTEMI type II hypertensive urgency Will trend cardiac enzymes Will monitor telemetry Started on aspirin and statin, as needed antihypertensives Patient denies any chest pain Cardiology consult if troponins trending higher - trop trending down. Echocardiogram 1. NORMAL LEFT VENTRICULAR EJECTION FRACTION (HYPERDYNAMIC LEFT VENTRICLE) EJECTION FRACTION GREATER THAN 70%. 2. MILD MITRAL REGURGITATION. 3. MILD TRICUSPID REGURGITATION. 4. DIASOTLIC DYSFUNCTION. 5. NORMAL RIGHT VENTRICULAR SYSTOLIC PRESSURE. 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 anemia of chronic disease Nephrology consult Electrolytes monitor and replace accordingly Potassium monitor Monitor closely under telemetry - no ectopy noted 11/04/24 Trend H&H, transfuse less than 7 Hyperglycemia likely secondary to steroid use Diabetes mellitus Sliding scale insulin, Accu-Chek Accu-Chek before every meal and at bedtime Hypertension Antihypertensives titrated Continue home medications and titrate as needed Hyperlipidemia Continue statin Possible Bastian's disease Porter discontinue Follow-up with endocrinology after discharge Generalized weakness Ambulate with physical therapy while inpatient, discharged with home health with PT Abnormal CT scan 10 cm area of narrowing involves the rectum. This may represent neoplasm or inflammation Outpatient follow-up with GI after discharge for GI/DVT prophylaxis Advanced directive full code Disposition Home independent prior Discharge Plan: Home Critical Care: No Time Spent Managing PTS Care (In Minutes): 35 <Ashley Ricks - Last Filed: 11/08/24 18:56> Chart has been reviewed. Events of the last 24 hours have been noted. Case discussed with MAT. I performed a substantial part of the MDM during this patient's care today. I personally made or approved the documented management plan and acknowledge its risk of complications. I agree with the findings and documentation provided in the MAT's notes <Balbir Spangler - Last Filed: 11/15/24 01:56>
[2024-11-09 05:12] LABS: Absolute Eosinophils 0.1 K/uL (0-0.5); Absolute Lymphocytes (CBC) 0.6 K/uL (0.7-4.9); Absolute Monocytes 0.8 K/uL (0.1-1.3); Absolute Neutrophil 5.7 K/uL (1.8-8.0); Basophils % 0.3 % (0-1.3); Eosinophils % 1.5 % (0-4.4); Hematocrit 29.2 % (36.0-45.0); Hemoglobin 9.7 g/dL (12.0-15.0); Lymphocytes % 8.5 % (15.3-44.8); MCH 30.9 pg (27.0-35.0); MCHC 33.2 g/dL (32.0-36.0); MCV 93.1 fL (80-100); MPV 9.7 fL (7.6-11.3); Monocytes % 11.3 % (3.3-12.3); Neutrophils % 78.4 % (41.7-73.7); Nucleated Red Blood Cells % 0.1 % (0-0); Platelets 175 thou/uL (152-406); RBC Red Blood Cell Count 3.14 M/uL (3.86-4.86); Red Cell Distribution Width 13.3 % (12.1-15.2)
[2024-11-09 05:34] LABS: Albumin 2.4 g/dL (3.4-5.0); Albumin/Globulin Ratio 0.9 (1.1-1.8); Anion Gap 8.2 mEq/L (5.0-15.0); Bilirubin Total 0.3 mg/dL (0.2-1.0); Globulin 2.7 g/dL (2.3-3.5); Potassium 3.2 mEq/L (3.5-5.1); Protein, Total 5.1 g/dL (6.4-8.2)
[2024-11-09] MEDS: POTASSIUM CL SA 10 MEQ TAB PO ONE ×2 (09:09→10:36)
[2024-11-09 09:19] LABS: C-ANCA Anti-Proteinase 3 <1.0 AI (<1.0); P-ANCA Anti-Myeloperoxidase Ab <1.0 AI (<1.0)
--- NOTE | 2024-11-09 11:10 | PN ---
Date of Progress Note: 11/09/2024 Subjective: The patient was admitted to the hospital with acute kidney injury, symptomatic hypokalem ia. The patient was found to have rectal mass, waiting for GI evaluation. The patient had high bloo d pressure. Physical Examination: Vital Signs: When I saw the patient, blood pressure 183/78, pulse of 74, afebrile. Chest: Clear to auscultation. Heart: S1, S2. Regular. Abdomen: Soft, nontender. Extremities: Trace edema. Neurologic: Alert. No focality. Laboratory Data: Hemoglobin 9.7. Sodium 137, potassium 3.2, bicarb 23, BUN 34, creatinine 2.1, calc ium 8.1, glucose 80, magnesium of 2, albumin 2.4, corrected calcium is 9.3. Current Medications: The patient is on include: 1.Atorvastatin. 2.Clonidine patch. 3.Hydralazine 25 t.i.d. 4.Lisinopril 20. 5.Metoprolol 25 b.i.d. 6.KCl. Assessment And Plan: 1.Acute kidney injury secondary to prerenal, back to close to baseline. I am going to continue to m onitor. 2.Hypertension, not controlled. I am going to go ahead and increase lisinopril to b.i.d. and we jatin l monitor the patient. 3.Hypomagnesemia, status post supplement, resolved. 4.Rectal mass. Follow up with GI and Surgery. JUAN Voice ID: [id number] Report ID: [id number]
[2024-11-09] MEDS: LACTULOSE 20 GM/30 ML UCUP PO ONE (19:13)
--- NOTE | 2024-11-09 19:40 | P.PN ---
Date of Service: 11/09/24 Subjective Chief Complaint: Hypokalemia No complaints of pain, ambulated with physical therapy Review of Systems 10-point ROS is otherwise unremarkable Physical Examination - Vital Signs Reviewed - Physical Exam General: Alert, afebrile, obese HEENT: Atraumatic, Normocephalic, PERRLA Respiratory: Clear to auscultation bilaterally, unlabored Cardiovascular: Normal pulses, Capillary refill: <2 Seconds Gastrointestinal: Normal bowel sounds, nontender Integumentary: No breakdown, No significant lesion Neurological: Normal speech, answers questions appropriately, Assessment And Plan - Plan Assessment and Plan NSTEMI type II hypertensive urgency Will trend cardiac enzymes Will monitor telemetry Started on aspirin and statin, as needed antihypertensives Patient denies any chest pain Cardiology consult if troponins trending higher - trop trending down. Echocardiogram 1. NORMAL LEFT VENTRICULAR EJECTION FRACTION (HYPERDYNAMIC LEFT VENTRICLE) EJECTION FRACTION GREATER THAN 70%. 2. MILD MITRAL REGURGITATION. 3. MILD TRICUSPID REGURGITATION. 4. DIASOTLIC DYSFUNCTION. 5. NORMAL RIGHT VENTRICULAR SYSTOLIC PRESSURE. 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 anemia of chronic disease Nephrology consult Electrolytes monitor and replace accordingly Potassium monitor Monitor closely under telemetry - no ectopy noted 11/04/24 Trend H&H, transfuse less than 7 Hyperglycemia likely secondary to steroid use Diabetes mellitus Sliding scale insulin, Accu-Chek Accu-Chek before every meal and at bedtime Hypertension Antihypertensives titrated Continue home medications and titrate as needed Hyperlipidemia Continue statin Possible [place]'s disease Dany and Paty discontinue Follow-up with endocrinology after discharge Generalized weakness Ambulate with physical therapy while inpatient, discharged with home health with PT Abnormal CT scan 10 cm area of narrowing involves the rectum. This may represent neoplasm or inflammation Outpatient follow-up with GI after discharge Surgery to see while inpatient GI/DVT prophylaxis Advanced directive full code Disposition Home independent prior Discharge Plan: Home Critical Care: No Time Spent Managing PTS Care (In Minutes): 25 <Ashley Ricks - Last Filed: 11/09/24 19:31> Chart has been reviewed. Events of the last 24 hours have been noted. Case discussed with MAT. I performed a substantial part of the MDM during this patient's care today. I personally made or approved the documented management plan and acknowledge its risk of complications. I agree with the findings and documentation provided in the MAT's notes <Balbir Spangler - Last Filed: 11/15/24 01:57>
[2024-11-09] MEDS: lisinopriL 20 MG TAB PO SCH (21:25)
[2024-11-10 06:31] LABS: Absolute Eosinophils 0.1 K/uL (0-0.5); Absolute Lymphocytes (CBC) 0.9 K/uL (0.7-4.9); Absolute Monocytes 0.6 K/uL (0.1-1.3); Basophils % 0.6 % (0-1.3); Eosinophils % 1.5 % (0-4.4); Hematocrit 29.1 % (36.0-45.0); Hemoglobin 9.4 g/dL (12.0-15.0); Lymphocytes % 19.1 % (15.3-44.8); MCH 30.7 pg (27.0-35.0); MCHC 32.3 g/dL (32.0-36.0); MCV 95.3 fL (80-100); MPV 10.5 fL (7.6-11.3); Monocytes % 13.4 % (3.3-12.3); Neutrophils % 65.4 % (41.7-73.7); Platelets 166 thou/uL (152-406); RBC Red Blood Cell Count 3.05 M/uL (3.86-4.86); Red Cell Distribution Width 13.6 % (12.1-15.2)
[2024-11-10 06:57] LABS: Albumin 2.4 g/dL (3.4-5.0); Albumin/Globulin Ratio 0.9 (1.1-1.8); Anion Gap 7.9 mEq/L (5.0-15.0); Bilirubin Total 0.2 mg/dL (0.2-1.0); Globulin 2.7 g/dL (2.3-3.5); Potassium 3.9 mEq/L (3.5-5.1); Protein, Total 5.1 g/dL (6.4-8.2)
[2024-11-10] MEDS: POTASSIUM CL SA 10 MEQ TAB PO ONE (08:13)
--- NOTE | 2024-11-10 11:49 | PN ---
Date of Progress Note: 11/10/2024 Subjective: The patient was admitted to the hospital with acute kidney injury, hypokalemia, electrolyte imbalance. The patient had rectal mass. Physical Examination: Vital Signs: When I saw the patient, blood pressure 181/77, pulse of 66. Chest: Clear to auscultation. Heart: S1, S2 regular. Abdomen: Soft, nontender. Extremities: Has +1 edema. Neurologic: Alert. No focality. Laboratory Data: Hemoglobin 9.4. Sodium 138, potassium 3.9, bicarb 24, BUN 28, creatinine 2.1, calcium 8.4. Current Medications: The patient on include: 1. Atorvastatin. 2. Clonidine patch. 3. Hydralazine 25 t.i.d. 4. Lisinopril 20 b.i.d., increased yesterday. 5. Metoprolol 25 b.i.d. 6. Hydrocortisone. Assessment And Plan: 1. Acute kidney injury secondary to prerenal, back to a new baseline. We will continue to monitor the patient. 2. Hypertension, not controlled. I am going to go ahead and start the patient on spironolactone and we will follow up the patient. 3. Edema. Start spironolactone. 4. Hypomagnesemia, status post supplement, resolved. 5. Hypokalemia, status post supplement, resolved. We will add spironolactone. 6. Rectal mass. We will follow up with GI and Primary. 7. The patient cleared from the Renal standpoint for discharge planning. Time spent examining the patient [id number] reviewing data lab and radiology placing order discussing the case with the patient / family by bedside discussing the case with the team automobile assembler including hospitalist and nursing staff more than 55-minute JUAN Voice ID: [id number] Report ID: [id number] ALEX
[2024-11-10] MEDS: GOLYTELY 4000 ML PO SCH (12:37)
--- NOTE | 2024-11-10 13:03 | P.PN ---
Date of Service: 11/10/24 Subjective Chief Complaint: Hypokalemia Hypertensive urgency, as needed antihypertensives added, Colon prep for colonoscopy tomorrow with GI Review of Systems 10-point ROS is otherwise unremarkable Physical Examination - Vital Signs Reviewed - Physical Exam General: Alert, afebrile, no acute distress noted HEENT: Atraumatic, Normocephalic, Respiratory: Clear to auscultation, equal unlabored Cardiovascular: Normal pulses, Capillary refill: <2 Seconds Gastrointestinal: Positive bowel sounds, obese abdomen Integumentary: No breakdown, No significant lesion Neurological: Normal speech, no focal deficits, Assessment And Plan - Plan Assessment and Plan NSTEMI type II hypertensive urgency Will trend cardiac enzymes Will monitor telemetry Started on aspirin and statin, as needed antihypertensives Patient denies any chest pain Cardiology consult if troponins trending higher - trop trending down. Echocardiogram 1. NORMAL LEFT VENTRICULAR EJECTION FRACTION (HYPERDYNAMIC LEFT VENTRICLE) EJECTION FRACTION GREATER THAN 70%. 2. MILD MITRAL REGURGITATION. 3. MILD TRICUSPID REGURGITATION. 4. DIASOTLIC DYSFUNCTION. 5. NORMAL RIGHT VENTRICULAR SYSTOLIC PRESSURE. 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 This may represent neoplasm or inflammation Colonoscopy scheduled for tomorrow, colon prep Surgery to see while inpatient GI/DVT prophylaxis Advanced directive full code Disposition Home independent prior Discharge Plan: Home Critical Care: No Time Spent Managing PTS Care (In Minutes): 25 <Ashley Ricks - Last Filed: 11/10/24 12:56> Chart has been reviewed. Events of the last 24 hours have been noted. Case discussed with MAT. I performed a substantial part of the MDM during this patient's care today. I personally made or approved the documented management plan and acknowledge its risk of complications. I agree with the findings and documentation provided in the MAT's notes <Balbir Spangler - Last Filed: 11/15/24 01:57>
[2024-11-10] MEDS: HYDRALAZINE HCL 20 MG/ML VIAL IV ONE (13:10)
[2024-11-11 05:09] LABS: Absolute Monocytes 0.5 K/uL (0.1-1.3); Absolute Neutrophil 3.1 K/uL (1.8-8.0); Basophils % 0.4 % (0-1.3); Eosinophils % 0.8 % (0-4.4); Hematocrit 29.8 % (36.0-45.0); Hemoglobin 9.6 g/dL (12.0-15.0); Lymphocytes % 21.7 % (15.3-44.8); MCH 30.3 pg (27.0-35.0); MCV 94.7 fL (80-100); MPV 10.2 fL (7.6-11.3); Monocytes % 11.2 % (3.3-12.3); Neutrophils % 65.9 % (41.7-73.7); Platelets 161 thou/uL (152-406); RBC Red Blood Cell Count 3.15 M/uL (3.86-4.86); Red Cell Distribution Width 13.6 % (12.1-15.2)
[2024-11-11 05:25] LABS: Albumin 2.4 g/dL (3.4-5.0); Anion Gap 10.2 mEq/L (5.0-15.0); Phosphorus 2.9 mg/dL (2.5-4.9); Potassium 3.2 mEq/L (3.5-5.1)
[2024-11-11] MEDS: KCL 20 MEQ/100 mL IVPB 20 MEQ/100 ML BAG IV SCH (06:04)
[2024-11-11] MEDS: NA CHLORIDE 0.9% 250 ML ONE (06:04)
[2024-11-11] MEDS: SPIRONOLACTONE 25 MG TABLET PO SCH ×2 (07:54→20:37)
[2024-11-11 10:38] LABS: Creatinine, Random Urine 46 mg/dL (20-275); Magnesium, Random Urine 154 mg/g creat (22-130)
[2024-11-11] MEDS: LEVALBUTEROL 1.25 MG/3 ML NEB NEB PRN (14:34)
--- NOTE | 2024-11-11 14:35 | P.PN ---
Date of Service: 11/11/24 Subjective Chief Complaint: Hypokalemia NPO for colonoscopy today, subset enema until clear Review of Systems 10-point ROS is otherwise unremarkable Physical Examination - Vital Signs Reviewed - Physical Exam General: Alert, oriented x 3 Respiratory: Clear to auscultation, equal unlabored Cardiovascular: Normal pulses, Capillary refill: <2 Seconds Gastrointestinal: Positive bowel sounds, obese abdomen Integumentary: No breakdown, No significant lesion Neurological: Normal speech, answers questions appropriately Assessment And Plan - Plan Assessment and Plan NSTEMI type II hypertensive urgency Will trend cardiac enzymes Will monitor telemetry Started on aspirin and statin, as needed antihypertensives Patient denies any chest pain Cardiology consult if troponins trending higher - trop trending down. Echocardiogram 1. NORMAL LEFT VENTRICULAR EJECTION FRACTION (HYPERDYNAMIC LEFT VENTRICLE) EJECTION FRACTION GREATER THAN 70%. 2. MILD MITRAL REGURGITATION. 3. MILD TRICUSPID REGURGITATION. 4. DIASOTLIC DYSFUNCTION. 5. NORMAL RIGHT VENTRICULAR SYSTOLIC PRESSURE. 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 anemia of chronic disease Nephrology consult Electrolytes monitor and replace accordingly Potassium monitor Monitor closely under telemetry - no ectopy noted 11/04/24 Trend H&H, transfuse less than 7 Hyperglycemia likely secondary to steroid use Diabetes mellitus Sliding scale insulin, Accu-Chek Accu-Chek before every meal and at bedtime Hypertensive urgency Hypertension Antihypertensives titrated Continue home medications and titrate as needed Telemetry Hyperlipidemia Continue statin Possible [place]'s disease Porter discontinue Follow-up with endocrinology after discharge Generalized weakness Ambulate with physical therapy while inpatient, discharged with home health with PT Abnormal CT scan 10 cm area of narrowing involves the rectum. This may represent neoplasm or inflammation Colonoscopy scheduled for tomorrow, colon prep Surgery to see while inpatient GI/DVT prophylaxis Advanced directive full code Disposition Home independent prior Discharge Plan: Home Critical Care: No Time Spent Managing PTS Care (In Minutes): 25 <Ashley Ricks - Last Filed: 11/11/24 14:35> Chart has been reviewed. Events of the last 24 hours have been noted. Case discussed with MAT. I performed a substantial part of the MDM during this patient's care today. I personally made or approved the documented management plan and acknowledge its risk of complications. I agree with the findings and documentation provided in the MAT's notes <Balbir Spangler - Last Filed: 11/15/24 01:57>
[2024-11-11] MEDS: METOPROLOL TARTRATE 5 MG/5 ML INJ IV STA (14:36)
[2024-11-11] MEDS ORDERED: propofoL 200 MG/20 ML VIAL IV ONE (15:07)
[2024-11-11] MEDS ORDERED: LIDOCAINE 1% MPF 5 ML VIAL ONE (15:07)
[2024-11-11] MEDS: NA CHLORIDE 0.9% 1,000 ML ONE (15:20)
--- NOTE | 2024-11-11 16:20 | EKG ---
Test Date: 2024-11-03 Test Time: 16:50:49 Psychiatry Adult Physician: FRANK MEASUREMENT RESULTS: Intervals: Rate: 64 NC: 166 QRSD: 122 QT: 430 QTc: 443 [place]: P: 64 NC: 166 QRS: 9 T: -11 INTERPRETIVE STATEMENTS: Normal sinus rhythm Right bundle branch block Abnormal ECG Compared to ECG 01/15/2022 20:34:26 Right bundle-branch block now present Myocardial infarct finding no longer present Electronically Signed On 11-11-24 16:08:35 COMPLIANCE NURSE by Valentín Espitia
[2024-11-11] MEDS: POTASSIUM CL SA 10 MEQ TAB PO ONE (20:36)
[2024-11-11] MEDS: POTASSIUM CL SA 10 MEQ TAB PO SCH (20:59)
--- NOTE | 2024-11-11 21:36 | CON ---
Date of Consultation: 11/11/2024 Reason For Consultation: Abnormal CT scan revealing possible rectal mass. History Of Present Illness: The patient is a 74-year-old white female with history of diabetes, hype rtension, hyperlipidemia, hypothyroidism, chronic kidney disease, and [place] disease. The patient p resented to the hospital with hypokalemia. The patient had undergone CT scan, which revealed marked 10 cm narrowing in the rectum, which is a possible rectal mass. Asked to evaluate for possible endos copic evaluation of this possible mass. Past Medical History: Significant for diabetes, hypertension, hyperlipidemia, hypothyroidism, chroni c kidney disease, [place] disease, laparoscopic cholecystectomy, and right wrist surgery in the past. Medications: Include metoprolol, allopurinol, ezetimibe, Florinef, Lasix, hydralazine, Synthroid, li sinopril, pravastatin, Cortef. Allergies: NKDA. Social History: She is single, never . No children. Quit tobacco in approximately 80. No a lcohol. Family History: Father of unknown causes. Mother of old age it appears. The patient is u nclear and she does not know why her mother . She was in [facility] [place] [facility] when she passed. Review of Systems: The patient had weakness, hypokalemia, disorientation. She denies any melena, hematochezia, coffee-g round emesis, hemoptysis, hematemesis, epistaxis, fevers, chills, night sweats, chest pain, shortness of breath, seizure, syncope, muscle aches, joint aches, backaches. Physical Examination: Vital Signs: The patient is 4 feet 736 pounds, BMI 31.7 kg/sq m. Temperature of 97.5, pulse 84, res pirations 16, blood pressure 151/51 with O2 saturation 100%. HEENT: Normocephalic, atraumatic. Anicteric. Pupils equal, round, and react to light. Extraocular movements are intact. Neck: Supple. No masses. Respirations: Clear to auscultation bilaterally. Cardiac: Regular rate and rhythm. Gastrointestinal: Positive bowel sounds. Soft, nontender, nondistended. No hepatosplenomegaly. Extremities: No clubbing, cyanosis. 2+ pulses. Maybe slight lower extremity edema. Neuro: Alert and oriented x3. Grossly nonfocal. 5/5 motor. Sensation intact to light touch. Laboratory Data: The patient has a white count of 4.7, hemoglobin 9.6, hematocrit 29.8, MCV of 95, p latelet count of 161. Polys of 66%, lymphocytes 22%, monocytes 11%, eosinophils 1%, PT of 138, potas sium of 3.2, chloride 109, BUN of 22, creatinine of 1.9, calcium 8.1, phosphorus 2.9, albumin 2.1, to rosalee bilirubin 0.2, AST of 63, ALT of 76, alkaline phosphatase 171, total protein 5.1, albumin 2.4. U A; 3+ glucose, trace blood, 2+ protein, otherwise negative. CT abdomen and pelvis revealed a 10 cm a rajat of narrowing in the rectum, could be possible rectal mass. Recommendations: Endoscopic evaluation possibly such by gastroenterology or other. Impression: 1.Abnormal CT revealing possible rectal mass with a 10 cm area in the rectum versus inflammation or other. We will need to investigate with possible endoscopic evaluation. 2.History of diabetes, hypertension, hyperlipidemia, hypothyroidism, chronic kidney disease, [place] disease, laparoscopic cholecystectomy, right wrist surgery. Recommendations: 1.Continue IV fluids. 2.Colonoscopy at this time after colon prep overnight. BENITA/FAUSTO Voice ID: [id number] Report ID: [id number]
--- NOTE | 2024-11-12 01:22 | PN ---
Date of Progress Note: 11/11/2024 Chief Complaint: The patient is admitted to the hospital with acute kidney injury, hypokalemia, elec trolyte imbalance. The patient was found to have rectal mass. Review of Systems: Denies chest pain, palpitation. Physical Examination: Lungs: Clear to auscultation bilaterally. Heart: S1, S2. Abdomen: Soft. Extremities: 1+ edema. Impression And Plan: 1.Acute kidney injury on chronic kidney disease. Renal function is plateauing. 2.Hypertension, not well controlled. Medications were adjusted. The patient was started on spirono lactone. 3.Edema. Spironolactone was started. 4.Hypomagnesemia. Continue supplements. Magnesium level improved and hypomagnesemia resolved. 5.Hypokalemia. Continue supplementation according to lab results and spironolactone was added. 6.Rectal mass. The patient will follow up with GI and Primary team. ERNESTINE/FAUSTO Voice ID: [id number] Report ID: [id number]
[2024-11-12 05:12] LABS: Absolute Lymphocytes (CBC) 1.3 K/uL (0.7-4.9); Absolute Monocytes 0.5 K/uL (0.1-1.3); Absolute Neutrophil 2.4 K/uL (1.8-8.0); Basophils % 0.6 % (0-1.3); Hematocrit 30.6 % (36.0-45.0); Hemoglobin 9.8 g/dL (12.0-15.0); Lymphocytes % 30.8 % (15.3-44.8); MCH 30.2 pg (27.0-35.0); MCHC 31.9 g/dL (32.0-36.0); MCV 94.7 fL (80-100); MPV 10.5 fL (7.6-11.3); Monocytes % 11.2 % (3.3-12.3); Neutrophils % 56.4 % (41.7-73.7); Platelets 169 thou/uL (152-406); RBC Red Blood Cell Count 3.23 M/uL (3.86-4.86); Red Cell Distribution Width 13.8 % (12.1-15.2)
[2024-11-12 05:23] LABS: Albumin 2.3 g/dL (3.4-5.0); Anion Gap 9.3 mEq/L (5.0-15.0); Phosphorus 3.7 mg/dL (2.5-4.9); Potassium 4.3 mEq/L (3.5-5.1)
--- NOTE | 2024-11-12 11:10 | PN ---
Date of Progress Note: 11/12/2024 Diagnosis: Perirectal swelling on the CAT scan. Subjective: This is a case of a female, who comes to us with multiple medical problems including hyp okalemia during the CAT scan done to evaluate her kidneys. There was some incidental finding in the rectum. Surgical consult and GI consult were obtained. The patient is asymptomatic. No bright red blood per rectum or any perirectal pain or any change in the bowel habits or any change in color of t he stools. Never had any colonoscopy before, so Dr. Marcos yesterday did a colonoscopy and they coul d not find any masses in that region. Objective: ABDOMEN: Soft and depressible, asymptomatic. EXTREMITIES: Good capillary refill. Plan: When she goes home, we are going to continue the workup. We might have to repeat the CAT scan as an outpatient to evaluate that area again with imaging. By any chance, the findings reproduce ag ain, then we will proceed accordingly with proper workup. She wants to go home. LEIF/FAUSTO Voice ID: [id number] Report ID: [id number]
[2024-11-12 11:40] VITALS: O2SAT 97
[2024-11-12 12:13] VITALS: BP 166/80; TEMP 98.1
--- NOTE | 2024-11-12 13:02 | P.PN ---
Subjective Date of Service: 11/12/24 Chief Complaint: Hypokalemia Subjective: No new changes Physical Examination - Vital Signs Temperature: 98.1 F Blood Pressure: 166/80 Pulse: 62 Respirations: 16 Pulse Ox (%): 97 - Physical Exam General: Other (chronically ill-appearing) HEENT: Atraumatic, Normocephalic Neck: Supple, JVD not distended Respiratory: Other (symmetric chest expansion) Cardiovascular: No rubs, No murmurs Gastrointestinal: Soft and benign, No guarding Musculoskeletal: No clubbing Integumentary: No warmth Neurological: Normal speech Urinary: Other (no bladder distention) External genitalia: Deferred Rectal: Deferred Assessment And Plan - Plan 1. Acute kidney injury on chronic kidney disease. SCr plateaued at 1.9-2.0. PO fluid intake as able. 2. CKD 3B. Baseline serum creatinine 1.5 (GFR 37-38 mL/min) as of March 2023. Monitor renal panel. 3. Hypertension. BP meds adjusted 4. Edema. Cont diuretics. 5. Hypomagnesemia. Continue supplements. Magnesium level improved and hypomagnesemia 5esolved. 6. Hypokalemia. Improved. KCl repletion prn. 7. Rectal mass. The patient will follow up with GI and Primary team. 8. Dispo. okay to [place] to home today. Follow-up in renal clinic in 2 weeks.
[2024-11-18 11:26] LABS: PRA,LC/MS/MS 0.06 ng/mL/h (0.25-5.82)
== END 2024-11-12 14:00 | disposition home health service (06) | DRG 640 ==
LOC: ER 14:56 → ERHOLD 18:21 → 2ND 21:45 → UNDODISIN 11-08 10:25
PROVIDERS: ADMIT Family Medicine; ATTEND Hospitalist
PROC: 0DBP8ZX Excision of Rectum, Via Natural or Artificial Opening Endoscopic, Diagnostic (ICD-10-PCS; 2024-11-11)
PROC: 0DBK8ZX Excision of Ascending Colon, Via Natural or Artificial Opening Endoscopic, Diagnostic (ICD-10-PCS; principal; 2024-11-11 17:00)
DX: E87.6 Hypokalemia (principal); I21.A1 Myocardial infarction type 2; N17.9 Acute kidney failure, unspecified; E27.40 Unspecified adrenocortical insufficiency; I16.0 Hypertensive urgency; K63.5 Polyp of colon; K62.1 Rectal polyp; E83.42 Hypomagnesemia; E03.9 Hypothyroidism, unspecified; E78.00 Pure hypercholesterolemia, unspecified; K62.9 Disease of anus and rectum, unspecified; I12.9 Hypertensive chronic kidney disease with stage 1 through stage 4 chronic kidney disease, or unspecified chronic kidney disease; N18.32 Chronic kidney disease, stage 3b; E11.22 Type 2 diabetes mellitus with diabetic chronic kidney disease; E11.65 Type 2 diabetes mellitus with hyperglycemia; D63.1 Anemia in chronic kidney disease; R79.89 Other specified abnormal findings of blood chemistry; Z60.2 Problems related to living alone; Z90.49 Acquired absence of other specified parts of digestive tract; Z79.890 Hormone replacement therapy; Z79.899 Other long term (current) drug therapy
CPT/HCPCS: 36415; 74176; 76770; 80048; 80053; 80069; 81001; 82024; 82088; 82533; 82550; 82570; 82947; 83735; 83930; 83935; 84100; 84132; 84244; 84300; 84443; 84484; 84550; 85025; 86021; 88305; 93005; 93306; 94640; 94760; 96365; 96366; 97110; 97116; 97161; 99285; J0360; J1644; J2003; J2704; J3475; J3480; J7030; J7040; J7050; J7614

== ENCOUNTER 2025-08-28 11:30 | Emergency (ER) | payer OTHER ==
--- OUTSIDE RECORDS SUMMARY | 2025-08-28 11:34 | XMS REPORT | Continuity of Care Document ---
Author Name Unknown Address [address] [facility]. [address] [place] [address] [facility] Address [address] [facility] [address] [place] [address] Care Team Providers Care Product Design Engineer Name Role Phone SOFI NIÑO Primary Care Physician Unavaila LORAINE Cunningham Attending Clinician Unavailable MIGUEL SHAY Attending Clinician Unavailable MIGUEL SHAY Attending Clinician Unavailable Doctor Unassigned, [place] Attending Clinician U Loraine Luong MD Attending Clinician RADIOLOGY Attending Clinician Unavailable Radiology Attending Clinician Unavailable Vaishali Kahn MD Attending Clinician Meena Ramirez Attending Clinician [phone] MEENA RAJPUT Attending Clinician Unavailable VAISHALI KAHN Attending Clinician UnavailYOLANDA Sheikh Admitting Clinician Unavailable Payers Payer Name Policy Type Policy Number Effective Date Expirati on Date Source [facility] [id number] 2020 00:00:00 MEDICAID [facility] [id number] 2016 00:00:00 MEDICARE PART A \T\ B [id number] 2016 00:00:00 Problems Condition Name Condition Details Condition Category Status Onset Date Resolution Date Last Treatment Date Treating Clinician Comments Source Morbid obesity with body mass index of 40.0-49.9 Morbid obesity with body mass index of 40.0-49.9 Disease Active 06-25 00:00: 00 [facility] Chest pain Chest pain Disease Active 06-25 00:00: 00 [facility] Morbid obesity with body mass index of 50 or higher Morbid obesity with body mass index of 50 or higher Disease Active 06-25 00:00: 00 [facility] Cholangiti s Cholangiti s Disease Active 06-25 00:00: 00 [facility] Obesity Obesity Disease Active 08-26 00:00: 00 [facility] Pleural effusion Pleural effusion Disease Active 08-22 00:00: 00 [facility] Gait abnormalit y Gait abnormalit y Disease Active 07-11 00:00: 00 [facility] Choledocho lithiasis Choledocho lithiasis Disease Active 07-07 00:00: 00 [facility] 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 Disease Active 07-07 00:00: 00 [facility] Abnormal LFTs (liver function tests) Abnormal LFTs (liver function tests) Disease Active 07-07 00:00: 00 [facility] Hyperbilir ubinemia Hyperbilir ubinemia Disease Active 07-07 00:00: 00 [facility] Cholelithi asis Cholelithi asis Disease Active 07-04 00:00: 00 [facility] Hypertensi on Hypertensi on Disease Recurre nce 07-04 00:00: 00 [facility] HLD (hyperlipi demia) HLD (hyperlipi demia) Disease Active 2008-11 00:00: 00 Overview: Formattin g of this note might be different from the original. ICD10 Diagnosis Term Wine Consultant Utility [facility] Diabetes mellitus type 2, uncontroll ed, without complicati ons Diabetes mellitus type 2, uncontroll ed, without complicati ons Disease Active 2008-11 00:00: 00 Overview: Formattin g of this note might be different from the original. ICD10 Diagnosis Term Wine Consultant Utility [facility] Other intraretin al microvascu lar abnormalit ies Other intraretin al microvascu lar abnormalit ies Disease Active 05-21 00:00: 00 Overview: Formattin g of this note might be different from the original. Retinopat hy cloudicat ion [facility] Allergies, Adverse Reactions, Alerts Allergy Name Allergy Type Status Severity Reaction(s) Onset Date Inactive Date Treating Clinician Comments Source No Known Allergie s DA Active U 06-18 00:00: 00 [facility] NO KNOWN ALLERGIE S Drug Class Active [facility] Social History Social Habit Start Date Stop Date Quantity Comments Source Exposure to SARS-CoV-2 (event) 2022-12-06 00:00:00 2022-12-16 10:53:00 Not sure [facility] Alcohol intake 2022-03-14 00:00:00 2022-03-14 00:00:00 0 /d [facility] Cigarettes smoked current (pack per day) - Reported 2017-06-25 00:00:00 2017-06-25 00:00:00 [facility] Cigarette pack-years 2017-06-25 00:00:00 2017-06-25 00:00:00 [facility] Tobacco use and exposure 2017-06-25 00:00:00 2017-06-25 00:00:00 Smokeless tobacco non-user [facility] History of tobacco use 1997-11-30 00:00:00 Cigarette Smoker [facility] Sex Assigned At 1950 00:00:00 1950 00:00:00 [facility] Smoking Status Start Date Stop Date Source Ex-smoker 2017-06-25 00:00:00 2017-06-25 00:00:00 U [facility] Medications Ordered Medication Name Filled Medication Name Start Date Stop Date Current Medication? Ordering Clinician Indication Dosage Frequency Signature (SIG) Comments Components Source DICLOFENAC 75 mg EC tablet 01-03 00:00: 00 Yes [id number] TAKE 1 TABLET BY MOUTH TWICE DAILY WITH MEALS [facility] metoprolol succinate XL (TOPROL XL) 25 mg 24 hr tablet 07-03 18:17: 42 Yes 25mg Take 25 mg by mouth 2 (two) times daily. Indication s: Take 1/2 tab two times daily [facility] PYRIDOXINE HCL, VITAMIN B6, (VITAMIN B-6 ORAL) 07-03 18:17: 42 Yes 100mg Take 100 mg by mouth daily. [facility] FOLIC ACID ORAL 07-03 18:17: 42 Yes 400ug Take 400 mcg by mouth daily. [facility] CYANOCOBALA MIN, VITAMIN B-12, (VITAMIN B12 ORAL) 07-03 18:17: 42 Yes 2000ug Take 2,000 mcg by mouth daily. [facility] traMADOL 50 mg tablet 07-03 18:17: 42 Yes 50mg Take 50 mg by mouth daily. [facility] Oriska-3-DHA -EPA-Fish Oil (FISH OIL) 1,000 mg (120 mg-180 mg) Cap 07-03 18:17: 42 Yes 1000mg Take 1,000 mg by mouth daily. [facility] furosemide 20 mg tablet 07-03 18:17: 42 Yes 20mg Take 20 mg by mouth daily. [facility] amLODIPine 5 mg tablet 07-03 00:00: 00 Yes 10mg Take 2 tablets by mouth daily. [facility] glyBURIDE (DIABETA) 5 mg tablet 12-19 00:00: 00 Yes [facility] levothyroxi ne (SYNTHROID) 125 mcg tablet 05-10 00:00: 00 Yes 125ug Take 1 Tab by mouth daily. [facility] PRAVASTATIN 80 MG ORAL TAB 2008-11 00:00: 00 Yes 1 tab PO QHS [facility] Procedures Procedure Date / Time Performed Performing Clinicia n Source REFERRAL- REQUEST/RESPONSE 2023-01-15 06:01:00 Doctor Unassigned, Combes [facility] US ABDOMEN LIMITED 2022-12-19 19:37:21 Requisition, Pa per [facility] CONSENT/REFUSAL FOR DIAGNOSIS AND TREATMENT 2022-12-19 18:39:38 Doctor Unassigned, [place]bes [facility] ASSIGNMENT OF BENEFITS 2022-12-19 18:38:51 Docto r Unassigned, Combes [facility] REFERRAL- REQUEST/RESPONSE 2022-05-29 05:01:00 Doctor Unassigned, Combes [facility] EXTERNAL PROVIDER RECORDS 2022-05-09 05:01:00 Doctor Unassigned, Combes [facility] Encounters Start Date/Time End Date/Time Encounter Type Admission Type Attending [facility] Facility Care Department Encounter ID Source 2024-03-29 09:30:00 2024-03-29 09:30:00 Outpatient R LORAINE STILES [facility] [id number] [facility] 2023-12-30 13:30:00 2023-12-30 13:30:00 Outpatient R MIGUEL SHAY YU [facility] [id number] [facility] 2023-10-28 09:30:00 2023-10-28 09:30:00 Outpatient R MIGUEL SHAY YU [facility] [id number] [facility] 2023-01-15 00:00:00 2023-01-15 00:00:00 Orders Only Doctor Unassigned, Combes [facility] 1..840.114 350.1.13.10 4.2.7.2.686 [id number] [facility] 2023-01-02 00:00:00 2023-01-02 00:00:00 Telephone Loraine Stiles [facility] 1.2.840.114 350.1.13.10 4.2.7.2.686 [id number] [facility] 2022-12-19 12:40:45 2022-12-19 23:59:00 Outpatient R RADIOLOGY [facility] [id number] [facility] 2022-12-19 12:40:45 2022-12-19 23:59:00 Hospital Encounter Radiology [facility] 1.2.840.114 350.1.13.10 4.2.7.2.686 [id number] [facility] 2022-05-29 00:00:00 2022-05-29 00:00:00 Orders Only Doctor Unassigned, Combes [facility] 1.2840.114 350.1.13.10 4.2.7.2.686 [id number] [facility] 2022-05-28 00:00:00 2022-05-28 00:00:00 Telephone KahnVaishali woodward [facility] CODY?[facility] 1.0.114 350.1.13.10 4.2.7.2.686 [id number] [facility] 2022-05-28 00:00:00 2022-05-28 00:00:00 Telephone Atiya [facility] CODY?[facility] 1.0.114 350.1.13.10 4.2.7.2.686 [id number] [facility] 2022-05-22 00:00:00 2022-05-22 00:00:00 Telephone Atiya [facility] CODY?[facility] 1.840.114 350.1.13.10 4.2.7.2.686 [id number] [facility] 2022-05-09 00:00:00 2022-05-09 00:00:00 Orders Only Doctor Unassigned, Combes [facility] 1.20.114 350.1.13.10 4.2.7.2.686 [id number] [facility] 2022-04-14 00:00:00 2022-04-14 00:00:00 Telephone Rajput [facility] OCDY?[facility] 1.840.114 350.1.13.10 4.2.7.2.686 [id number] [facility] 2022-04-09 00:00:00 2022-04-09 00:00:00 Telephone [facility]ena [facility] 1.2.840.114 350.1.13.10 4.2.7.2.686 [id number] [facility] 2022-03-24 00:00:00 2022-03-24 00:00:00 Telephone Vaishali Kahn [facility] 1.2.840.114 350.1.13.10 4.2.7.2.686 [id number] [facility] 2022-03-24 00:00:00 2022-03-24 00:00:00 Telephone [facility] 1.2.840.114 350.1.13.10 4.2.7.2.686 [id number] [facility] 2022-03-19 00:00:00 2022-03-19 00:00:00 Telephone Rajput [facility] 1.2.840.114 350.1.13.10 4.2.7.2.686 [id number] [facility] 2022-03-19 00:00:00 2022-03-19 00:00:00 Telephone Atiya Meena [facility] CODY?[facility] 1.2.840.114 350.1.13.10 4.2.7.2.686 [id number] [facility] 2022-03-14 08:05:00 2022-03-14 23:59:00 Outpatient R MEENA RAJPUT [facility] [id number] [facility] 2022-03-14 08:00:00 2022-03-14 08:15:00 [facility] 1..840.114 350.1.13.10 4.2.7.2.686 [id number] [facility] 2022-03-14 08:00:00 2022-03-14 08:00:00 Outpatient Seun RAJPUT [facility] [id number] [facility] 2022-03-10 00:00:00 2022-03-10 00:00:00 Orders Only Doctor Unassigned, Combes [facility] 1.840.114 350.1.13.10 4.2.7.2.686 [id number] [facility] 2022-02-07 09:14:53 2022-02-07 23:59:00 Outpatient Seun RAJPUT [facility] [id number] [facility] 2022-02-07 09:15:00 2022-02-07 09:45:00 Office Visit Atiya [facility] 1.840.114 350..13.10 4.2.7.2.686 [id number] [facility] 2022-02-07 09:15:00 2022-02-07 09:15:00 Outpatient Seun RAJPUT [facility] [id number] [facility] 2021-12-09 00:00:00 2021-12-09 00:00:00 Orders Only Doctor Unassigned, Combes [facility] 1.840.114 350.1.13.10 4.2.7.2.686 [id number] [facility] 2021-09-10 00:00:00 2021-09-10 00:00:00 Letter (Out) Vaishali Kahn [facility] 1..840.114 350.1.13.10 4.2.7.2.686 [id number] [facility] 2021-09-09 14:30:00 2021-09-09 14:30:00 Outpatient R VAISHALI KAHN [facility] [id number] [facility] 2021-09-09 13:44:03 2021-09-09 14:12:31 Office Visit Vaishali Kahn [facility] Cody[facility] 1.2.840.114 350.1.13.10 4.2.7.2.686 [id number] [facility] 2021-05-09 09:15:00 2021-05-09 09:15:00 Outpatient Seun ATIYA [facility] [id number] [facility] 2021-05-09 08:44:54 2021-05-09 09:01:30 [facility] 1.2.840.114 350.1.13.10 4.2.7.2.686 [id number] [facility] 2021-05-02 08:47:36 2021-05-02 09:22:49 Office Visit Rajput [facility] 1.2.840.114 350.1.13.10 4.2.7.2.686 [id number] [facility] 2021-05-02 09:00:00 2021-05-02 09:00:00 Outpatient R ATIYA [facility] [id number] [facility] 2021-04-25 08:40:03 2021-04-25 09:12:05 Office Visit Atiya [facility] 1.2.840.114 350.1.13.10 4.2.7.2.686 [id number] [facility] 2021-04-25 09:00:00 2021-04-25 09:00:00 Outpatient Seun HUNTER RAJPUTTT [facility] [id number] [facility] 2021-04-23 09:00:00 2021-04-23 09:00:00 Outpatient Seun RAJPUT MEENA [facility] [id number] [facility] 2021-04-08 00:00:00 2021-04-08 00:00:00 Orders Only Doctor Unassigned, Combes [facility] 1.2.840.114 350.1.13.10 4.2.7.2.686 [id number] [facility] 2021-04-03 00:00:00 2021-04-03 00:00:00 Telephone Vaishali Kahn [facility] [place] 1.2.840.114 350.1.13.10 4.2.7.2.686 [id number] [facility] 2021-03-21 09:55:53 2021-03-21 23:59:00 Hospital Encounter Vaishali Kahn [facility] [place] 1.2.840.114 350.1.13.10 4.2.7.2.686 [id number] [facility] 2021-03-21 09:32:32 2021-03-21 10:08:15 Office Visit Vaishali Kahn [facility] [place] 1.2.840.114 350.1.13.10 4.2.7.2.686 [id number] [facility] 2021-03-21 10:00:00 2021-03-21 10:00:00 Outpatient R VAISHALI KAHN [facility] [id number] [facility] 2020-01-30 13:49:25 2020-01-30 14:04:25 Office Visit Vaishali Kahn [facility] [place] 1.2.840.114 350.1.13.10 4.2.7.2.686 [id number] 2020-01-30 13:49:25 2020-01-30 14:04:25 Office Visit Vaishali Kahn [facility] bridget Johnson 1.2.840.114 350.1.13.10 4.2.7.2.686 [id number] [facility] 2020-01-30 13:45:00 2020-01-30 13:45:00 Outpatient R VAISHALI KAHN [facility] [id number] [facility] 2020-01-30 00:00:00 2020-01-30 00:00:00 Orders Only Doctor Unassigned, Combes [facility] 1.2.840.114 350.1.13.10 4.2.7.2.686 [id number] [facility]
[2025-08-28 13:22] LABS: Absolute Lymphocytes (CBC) 0.7 K/uL (0.7-4.9); Hematocrit 27.0 % (36.0-45.0); Hemoglobin 8.7 g/dL (12.0-15.0); MCH 30.5 pg (27.0-35.0); MCHC 32.2 g/dL (32.0-36.0); MCV 94.7 fL (80-100); MPV 8.6 fL (7.6-11.3); Nucleated RBC Absolute Count 0.0 (0-0); Nucleated Red Blood Cells % 0.0 % (0-0); RBC Red Blood Cell Count 2.85 M/uL (3.86-4.86); White Blood Count 9.60 thou/uL (4.3-10.9)
[2025-08-28 13:29] LABS: PT Prothrombin Time 14.6 SECONDS (10-13.0); Protime INR 1.3
[2025-08-28 13:48] LABS: ALT/SGPT 43.0 U/L (13-56); AST/SGOT 42.0 U/L (15-37); Albumin 2.9 g/dL (3.4-5.0); Albumin/Globulin Ratio 0.8 (1.1-1.8); Alkaline Phosphatase 233.0 U/L (45-117); Anion Gap 13.9 mEq/L (5.0-15.0); BUN Blood Urea Nitrogen 35.0 mg/dL (7-18); Globulin 3.8 g/dL (2.3-3.5); Glucose Level 143.0 mg/dL (74-106); NT PRO-BNP 4414.0 pg/mL (<125); Potassium 3.9 mEq/L (3.5-5.1); Troponin High Sensitivity 8.7 pg/mL (<58.9)
--- NOTE | 2025-08-28 14:23 | RAD REPORT ---
Exam:Foot Right 2 View CLINICAL HISTORY: Right foot pain FINDINGS: Diffuse edema is present within the subcutaneous tissues. Bones are osteoporotic. Large calcaneal spurs are present. Mild narrowing involves the MCP, PIP and DIP joints. Prominent exostosis extends off of the first distal phalanx.
--- NOTE | 2025-08-28 14:24 | RAD REPORT ---
Exam:Foot Left 2 View CLINICAL HISTORY: Left foot pain FINDINGS: No fracture or dislocation seen. Bones are osteoporotic. Large calcaneal spurs. Mild narrowing involves the DIP and PIP joints. Limited two-view series obtained
[2025-08-28 14:56] LABS: Sqamous Epithelial <5 /HPF (None Seen); Urine Culture Reflex Order REFLEXED; Urine Microscopic Reflex YN ORDER UMIC
--- NOTE | 2025-08-28 15:14 | EDPHYS ---
Physician Documentation [facility] Name: Prema Soares Age: 75 yrs Sex: Female : 1950 Arrival Date: 08/28/2025 Time: 11:30 Bed 24 Private MD: ED Physician Krunal Arce HPI: 08/28 13:29 This 75 yrs old Female presents to ER via Ambulatory with complaints of General sp3 Weakness, Foot Injury, Pain All Over. 13:29 75-year-old female with history of diabetes, hyperlipidemia, hypertension, sp3 hypothyroidism presents to the ED with chief complaint bilateral foot pain due to her dropping something on her feet, generalized weakness and tiredness. Patient saw PCP who wanted to come in for UA and labs. Patient has no specific complaints other than the weakness and fatigue. She denies any headache, neck pain, chest pain, shortness breath, abdominal pain, vomit, diarrhea, syncope, fever, URI symptoms, known sick contact, travel history, prolonged immobilization, or any other signs or symptoms on ROS at this time.. Historical: - Allergies: 12:17 No Known Allergies; dd2 - PMHx: 12:17 diabetes mellitus; Hypercholesterolemia; Hypertensive disorder; Hypothyroidism; dd2 - PSHx: 12:17 Cholecystectomy; dd2 - Immunization history:: Adult Immunizations unknown. - Infectious Disease History:: Denies. - Social history:: Smoking status: Patient denies any tobacco usage or history of. ROS: 13:31 Constitutional: Negative for fever, chills, and weight loss, Eyes: Negative for injury, sp3 pain, redness, and discharge, ENT: Negative for injury, pain, and discharge, Neck: Negative for injury, pain, and swelling, Cardiovascular: Negative for chest pain, palpitations, and edema, Respiratory: Negative for shortness of breath, cough, wheezing, and pleuritic chest pain, Abdomen/GI: Negative for abdominal pain, nausea, vomiting, diarrhea, and constipation, Back: Negative for injury and pain, Skin: Negative for injury, rash, and discoloration, Neuro: Negative for headache, weakness, numbness, tingling, and seizure, Psych: Negative for depression, anxiety, suicide ideation, homicidal ideation, and hallucinations, Allergy/Immunology: Negative for hives, rash, and allergies, Endocrine: Negative for neck swelling, polydipsia, polyuria, polyphagia, and marked weight changes, 13:31 All other systems are negative, Exam: 13:31 Constitutional: This is a well developed, well nourished patient who is awake, alert, sp3 and in no acute distress. Head/Face: Normocephalic, atraumatic. Eyes: Pupils equal round and reactive to light, extra-ocular motions intact. Lids and lashes normal. Conjunctiva and sclera are non-icteric and not injected. Cornea within normal limits. Periorbital areas with no swelling, redness, or edema. Neck: Trachea midline, no thyromegaly or masses palpated, and no cervical lymphadenopathy. Supple, full range of motion without nuchal rigidity, or vertebral point tenderness. No Meningismus. Chest/axilla: Normal chest wall appearance and motion. Nontender with no deformity. No lesions are appreciated. Cardiovascular: Regular rate and rhythm with a normal S1 and S2. No gallops, murmurs, or rubs. Normal PMI, no JVD. No pulse deficits. Respiratory: Lungs have equal breath sounds bilaterally, clear to auscultation and percussion. No rales, rhonchi or wheezes noted. No increased work of breathing, no retractions or nasal flaring. Abdomen/GI: Soft, non-tender, with normal bowel sounds. No distension or tympany. No guarding or rebound. No evidence of tenderness throughout. Back: No spinal tenderness. No costovertebral tenderness. Full range of motion. Skin: Warm, dry with normal turgor. Normal color with no rashes, no lesions, and no evidence of cellulitis. Psych: Awake, alert, with orientation to person, place and time. Behavior, mood, and affect are within normal limits. 13:31 ECG was reviewed by the Attending Physician. EKG demonstrates normal sinus rhythm at 84 bpm with normal intervals, normal axis lateral T wave abnormalities and nonspecific ST/T changes without evidence of acute ischemia. Vital Signs: 12:14 BP 131 / 83; Pulse 81; Resp 17; Temp 98.2; Pulse Ox 100% on R/A; Weight 58.06 kg; dd2 Height 4 ft. 6 in. ; Pain 7/10; 14:00 BP 156 / 81; Pulse 85; Resp 18; Pulse Ox 100% on R/A; kj2 15:12 BP 148 / 91; Pulse 83; Resp 18; Pulse Ox 98% on R/A; kj2 16:15 BP 149 / 70; Pulse 81; Resp 20; Temp 98; Pulse Ox 99% ; kj2 17:00 BP 147 / 74; Pulse 82; Resp 20; Pulse Ox 100% ; kj2 18:00 BP 152 / 73; Pulse 87; Resp 18; Pulse Ox 98% on R/A; kj2 19:30 BP 148 / 70; Pulse 87; Resp 18; Pulse Ox 99% ; kj2 20:38 BP 150 / 77; Pulse 87; Resp 20; Temp 98; Pulse Ox 99% ; kj2 21:30 BP 146 / 74; Pulse 86; Resp 18; Pulse Ox 100% ; kj2 22:00 BP 148 / 72; Pulse 87; Resp 18; Pulse Ox 99% on R/A; kj2 08/29 00:36 BP 136 / 92; Pulse 62; Resp 18; Temp 97.1(TE); Pulse Ox 99% on R/A; Pain 0/10; br2 01:42 BP 130 / 90; Pulse 64; Resp 18; Pulse Ox 98% ; br2 08/28 12:14 Body Mass Index 29.75 (58.06 kg, 139.7 cm) dd2 08/28 12:14 Pain Scale: Adult dd2 08/29 00:36 Pain Scale: Adult br2 MDM: 08/28 12:13 Medical Screening Exam initiated sp3 15:11 Data reviewed: vital signs, nurses notes, lab test result(s). sp3 15:12 ED course: 75-year-old female with PMH above now with generalized weakness and vague sp3 symptoms including bilateral foot pain. Differential diagnosis includes dehydration, UTI, CHF, to lesser degree ACS or other disturbance. Bilateral feet x-rays are negative for any fracture. UA is positive for infection. Creatinine is at baseline at between 2.5 and 3.0. Patient is in no acute distress resting comfortably. We will administer Levaquin 2050 mg IV and discharge patient home on p.o. Levaquin with PCP follow-up.. 08/28 13:05 Order name: BNP; Complete Time: 14:25 sp3 08/28 13:05 Order name: Blood Culture Adult (2) sp3 08/28 13:05 Order name: CBC with Diff; Complete Time: 14:25 sp3 08/28 13:05 Order name: CMP; Complete Time: 14:25 3 08/28 13:05 Order name: Lactate w/ 2H reflex if indic.; Complete Time: 14:25 sp3 08/28 13:05 Order name: Protime (+inr); Complete Time: 14:25 sp3 08/28 13:05 Order name: Troponin HS; Complete Time: 14:25 3 08/28 13:05 Order name: UA Rfx Kevin Cult if indicated; Complete Time: 15:00 3 08/28 15:01 Order name: Urine Culture EDMS 08/28 13:24 Order name: Foot Left 2 View XRAY; Complete Time: 14:25 3 08/28 13:24 Order name: Foot Right 2 View XRAY; Complete Time: 14:25 3 08/28 13:05 Order name: Cardiac monitoring; Complete Time: 13:06 3 08/28 13:05 Order name: EKG - Nurse/Tech; Complete Time: 13:06 3 08/28 13:05 Order name: IV Saline Lock - Large Bore; Complete Time: 13:06 3 08/28 13:05 Order name: Labs collected and sent; Complete Time: 13:06 08/28 13:05 Order name: O2 Per Protocol; Complete Time: 13:06 3 08/28 13:05 Order name: O2 Sat Monitoring; Complete Time: 13:06 3 08/28 13:05 Order name: Vital Signs; Complete Time: 13:06 3 08/28 14:27 Order name: Cath: Cath UA; Complete Time: 14:49 sp3 Administered Medications: 15:35 Drug: LevaQUIN IVPB 250 mg IVPB once Route: IVPB; Site: left antecubital; kj2 16:10 Follow up: IV Status: Completed infusion; IV Intake: 50ml kj2 Disposition Summary: 08/28/25 15:13 Discharge Ordered Notes: Location: Home sp3 Condition: Stable sp3 Diagnosis - Urinary tract infection, renal insufficiency, generalized weakness sp3 Followup: sp3 - With: Private Physician - When: Upon discharge from the Emergency Department - Reason: Continuance of care Discharge Instructions: - Discharge Summary Sheet sp3 - Urinary Tract Infection, Adult sp3 Forms: - Medication Reconciliation Form sp3 - Antibiotic Education sp3 - Prescription Opioid Use sp3 - Patient Portal Instructions sp3 - Leadership Thank You Letter sp3 Prescriptions: - levofloxacin 250 mg Oral tablet - take 1 tablet ORAL route once daily for 6 days; 6 tablet; Refills: 0, Product sp3 Selection Permitted Signatures: Dispatcher [employer] EDMS Krunal Arce MD MD sp3 Marysol Palomares, ISAIAS RN kj2 THAIS SIMONS RN RN dd2 Corrections: (The following items were deleted from the chart) 13:06 13:06 PROBNP+C.LAB.BRZ ordered. EDMS EDMS 13:06 13:06 BLOOD CULTURE*+BA.LAB.BRZ ordered. EDMS EDMS 13:06 13:06 CBC+H.LAB.BRZ ordered. EDMS EDMS 13:06 13:06 COMPREHENSIVE METABOLIC PANEL+C.LAB.BRZ ordered. EDMS EDMS 13:06 13:06 LACTATE+C.LAB.BRZ ordered. EDMS EDMS 13:06 13:06 PROTIME (+INR)+COAG.LAB.BRZ ordered. EDMS EDMS 13:06 13:06 Troponin High Sensitivity+C.LAB.BRZ ordered. EDMS EDMS 13:06 13:06 UA Rfx Kevin Cult if indicated+U.LAB.BRZ ordered. EDMS EDMS 13:25 13:25 Foot Left 2 View+RAD.RAD.BRZ ordered. EDMS EDMS 13:25 13:25 Foot Right 2 View+RAD.RAD.BRZ ordered. EDMS EDMS
--- NOTE | 2025-08-28 15:14 | ER ---
Nurse's Notes [facility] Name: Prema Soares Age: 75 yrs Sex: Female : 1950 Arrival Date: 08/28/2025 Time: 11:30 Bed 24 Private MD: Diagnosis: Urinary tract infection, renal insufficiency, generalized weakness Presentation: 08/28 12:14 Chief complaint: Patient states: WEAKNESS X 2 WEEKS, CHILLS, RT UPPER STOMACH PAIN X 1 dd2 WEEK, LT FOOT INJURY X 1 WEEKS AGO FROM DROPPING A WRENCH ON FOOT AND PAIN TO RT GREAT TOE THAT STARTED TODAY. REPORTS WAS SENT HERE BY PCP. Coronavirus screen: At this time, the client does not indicate any symptoms associated with coronavirus-19. Ebola Screen: No symptoms or risks identified at this time. Initial Sepsis Screen: Does the patient meet any 2 criteria? No. Patient's initial sepsis screen is negative. Does the patient have a suspected source of infection? No. Patient's initial sepsis screen is negative. Risk Assessment: Do you want to hurt yourself or someone else? Patient reports no desire to harm self or others. Onset of symptoms was August 14, 2025. 12:14 Method Of Arrival: Ambulatory dd2 12:14 Acuity: DEYSI 3 dd2 Triage Assessment: 12:17 General: Appears in no apparent distress. uncomfortable, Behavior is calm, cooperative, dd2 appropriate for age. Pain: Complains of pain in right upper quadrant, right first toe and left foot. Musculoskeletal: Reports pain in left foot. Historical: - Allergies: 12:17 No Known Allergies; dd2 - PMHx: 12:17 diabetes mellitus; Hypercholesterolemia; Hypertensive disorder; Hypothyroidism; dd2 - PSHx: 12:17 Cholecystectomy; dd2 - Immunization history:: Adult Immunizations unknown. - Infectious Disease History:: Denies. - Social history:: Smoking status: Patient denies any tobacco usage or history of. Screenin:54 [facility] ED Fall Risk Assessment (Adult) History of falling in the last 3 months, kj2 including since admission No falls in past 3 months (0 pts) Confusion or Disorientation No (0 pts) Intoxicated or Sedated No (0 pts) Impaired Gait Yes (1 pt) Mobility Assist Device Used Yes (1 pt) Altered Elimination No (0 pt) Score/Fall Risk Level 0 - 2 = Low Risk Maintained a safe environment, Hourly rounding (assess needs \T\ fall precautionary measures) done. Abuse screen: Denies threats or abuse. Denies injuries from another. Nutritional screening: No deficits noted. Tuberculosis screening: No symptoms or risk factors identified. Assessment: 12:50 General: Appears in no apparent distress. Behavior is cooperative. Pain: Complains of kj2 pain in left foot and right foot and right upper quadrant and right first toe Pain currently is 7 out of 10 on a pain scale. Neuro: Level of Consciousness is awake, alert, obeys commands, Oriented to person, place, time, situation. Cardiovascular: Patient's skin is warm and dry. Respiratory: Airway is patent Respiratory effort is even, unlabored. GI: No signs and/or symptoms were reported involving the gastrointestinal system. : No signs and/or symptoms were reported regarding the genitourinary system. 14:00 Reassessment: Patient appears in no apparent distress at this time. Patient and/or kj2 family updated on plan of care and expected duration. Pain level reassessed. Patient is alert, oriented x 3, equal unlabored respirations, skin warm/dry/pink. 15:00 Reassessment: Patient appears in no apparent distress at this time. Patient and/or kj2 family updated on plan of care and expected duration. Pain level reassessed. Patient is alert, oriented x 3, equal unlabored respirations, skin warm/dry/pink. 15:22 Reassessment: patient will be discharged once levaquin is complete. kj2 15:32 Reassessment: levaquin delivered to ER. kj2 16:09 Reassessment: RN called friend [phone] for a ride home, no answer vm left. kj2 16:15 Reassessment: Patient unable to identify anyone to pick her up before 2300 tonight. kj2 Charge nurse notified. 16:30 Reassessment: Pt states she is able to pay for a taxi, but may not be able to ambulate ss from the taxi all the way to her house. 17:00 Reassessment: No changes from previously documented assessment. kj2 18:00 Reassessment: Patient appears in no apparent distress at this time. No changes from kj2 previously documented assessment. 18:36 Reassessment: RN offered the patient a sandwich and a softdrink or juice, she declined. kj2 Said she is not hungry at this time. 19:30 Reassessment: Patient appears in no apparent distress at this time. Patient and/or kj2 family updated on plan of care and expected duration. Pain level reassessed. 20:38 Reassessment: Patient appears in no apparent distress at this time. Patient and/or kj2 family updated on plan of care and expected duration. Pain level reassessed. 20:59 Reassessment: RN offered the patient food, patient declined. kj2 22:19 Reassessment: Patient appears in no apparent distress at this time. RN and tech checked kj2 patient for diaper care, patient is dry at this time. 23:15 Reassessment: PT HAS BEEN ATTEMPTING TO CONTACT HER FRIEND THAT IS SUPPOSED TO PICK HER br2 UP AFTER SHE GETS OFF WORK AT 2300, BUT SHE ISN'T ANSWERING. [facility] [phone]. PT IS REQUESTING TO SIT IN WHEELCHAIR IN LOBBY BUT PT IS UNABLE TO AMBULATE WITHOUT ASSISTANCE AND USES A WALKER BUT DOESN'T HAVE IT WITH HER. 23:45 Reassessment: Pt is still trying to call Kiah but she isn't answering her phone. Pt is br2 too weak to sit in wheelchair in lobby without her walker. 08/29 00:32 Reassessment: Pt still hasn't been able to contact Kiah. She has left multiple messages. br2 I have also attempted to call Kiah with no luck. Phone rings and goes to voicemail. Vital Signs: 08/28 12:14 BP 131 / 83; Pulse 81; Resp 17; Temp 98.2; Pulse Ox 100% on R/A; Weight 58.06 kg; dd2 Height 4 ft. 6 in. ; Pain 7/10; 14:00 BP 156 / 81; Pulse 85; Resp 18; Pulse Ox 100% on R/A; kj2 15:12 BP 148 / 91; Pulse 83; Resp 18; Pulse Ox 98% on R/A; kj2 16:15 BP 149 / 70; Pulse 81; Resp 20; Temp 98; Pulse Ox 99% ; kj2 17:00 BP 147 / 74; Pulse 82; Resp 20; Pulse Ox 100% ; kj2 18:00 BP 152 / 73; Pulse 87; Resp 18; Pulse Ox 98% on R/A; kj2 19:30 BP 148 / 70; Pulse 87; Resp 18; Pulse Ox 99% ; kj2 20:38 BP 150 / 77; Pulse 87; Resp 20; Temp 98; Pulse Ox 99% ; kj2 21:30 BP 146 / 74; Pulse 86; Resp 18; Pulse Ox 100% ; kj2 22:00 BP 148 / 72; Pulse 87; Resp 18; Pulse Ox 99% on R/A; kj2 08/29 00:36 BP 136 / 92; Pulse 62; Resp 18; Temp 97.1(TE); Pulse Ox 99% on R/A; Pain 0/10; br2 01:42 BP 130 / 90; Pulse 64; Resp 18; Pulse Ox 98% ; br2 08/28 12:14 Body Mass Index 29.75 (58.06 kg, 139.7 cm) dd2 08/28 12:14 Pain Scale: Adult dd2 08/29 00:36 Pain Scale: Adult br2 ED Course: 08/28 11:41 Patient arrived in ED. cj3 11:50 Krunal Arce MD is Attending Physician. sp3 12:17 Triage completed. dd2 12:17 Arm band placed on right wrist. dd2 12:49 Marysol Palomares, ISAIAS is Primary Nurse. kj2 12:52 Patient has correct armband on for positive identification. Bed in low position. Call kj2 light in reach. Side rails up X 1. Provided Education on: call light, fall prevention. 13:22 BNP Sent. bc6 13:22 Blood Culture Adult (2) Sent. bc6 13:22 CBC with Diff Sent. bc6 13:22 CMP Sent. bc6 13:22 Lactate w/ 2H reflex if indic. Sent. bc6 13:22 Protime (+inr) Sent. bc6 13:22 Troponin HS Sent. bc6 13:22 Initial lab(s) drawn, by me, sent to lab. Inserted saline lock: 22 gauge in left bc6 antecubital area, using aseptic technique. Blood collected. Flushed with 10 mL NS. 13:43 Foot Left 2 View XRAY In Process Unspecified. EDMS 13:43 Foot Right 2 View XRAY In Process Unspecified. EDMS 14:49 UA Rfx Kevin Cult if indicated Sent. kj2 15:46 No provider procedures requiring assistance completed. kj2 16:39 IV discontinued, intact, bleeding controlled, No redness/swelling at site. Pressure kj2 dressing applied. 22:22 Report given to ISAIAS Hutchinson charge nurse, also notified ISAIAS Hutchinson that the patient is kj2 waiting for transportation at 2300 in ER room due to it is unsafe for [facility] to [facility] as she is very unsteady. Administered Medications: 15:35 Drug: LevaQUIN IVPB 250 mg IVPB once Route: IVPB; Site: left antecubital; kj2 16:10 Follow up: IV Status: Completed infusion; IV Intake: 50ml kj2 Medication: 12:53 VIS not applicable for this client. kj2 Intake: 16:10 IV: 50ml; Total: 50ml. kj2 Outcome: 15:13 Discharge ordered by . sp3 16:38 Condition: stable kj2 08/29 00:40 Discharged to home via ambulance, br2 Discharge instructions given to patient, Instructed on discharge instructions, 01:43 Patient left the ED. br2 Addendum: 09/02/2025 07:19 Addendum: Culture Results: Positive urine culture. No further action required. Bacteria e b sensitive to prescribed antibiotic. Signatures: Dispatcher [employer] EDMS Manju Frost, RN RN Moira Damon Setul, MD MD sp3 Ducle Mckenzie Belinda, RN RN br2 Marysol Palomares RN RN kj2 THAIS SIMONS RN RN dd2 Mis Hurtado cj3 Corrections: (The following items were deleted from the chart) 08/28 15:46 15:38 Reassessment: waiting delivery of levaquin kj2 kj2
[2025-08-28] MEDS ORDERED: Levofloxacin 250mg IV 250 MG/50 ML BAG IV ONE (15:22)
[2025-08-29 02:03] VITALS: TEMP 97.1
[2025-08-29 02:05] VITALS: BP 130/90; O2SAT 98
== END 2025-08-29 01:43 | disposition home or self-care (01) ==
LOC: ER 11:30
DX: N39.0 Urinary tract infection, site not specified (principal); N28.9 Disorder of kidney and ureter, unspecified; R53.1 Weakness; M79.672 Pain in left foot; M79.671 Pain in right foot; E11.9 Type 2 diabetes mellitus without complications; I10 Essential (primary) hypertension; E03.9 Hypothyroidism, unspecified; E78.00 Pure hypercholesterolemia, unspecified
CPT/HCPCS: 36415; 80053; 81001; 83605; 83880; 84484; 85025; 85610; 87040; 87077; 87086; 87088; 87186; 93005; 96365; 99284